=== PATIENT | female | born 1935 | race Caucasian/White ===

== ENCOUNTER → 2016-10-15 | Outpatient (CLI) | payer BC ==
[~2016-10-15] MED LIST: AMLO-110 PO; ASPI81TA21 PO; CALC600T14 PO; CALC667C4 PO; GLC/500 PO; GLC500 PO; LISI-461 PO; MULT-506 PO
[2016-10-15 11:30] LABS: BLOOD UREA NITROGEN 15 mg/dl (7-18); CALCIUM 9.4 mg/dl (8.5-10.1); CARBON DIOXIDE 27 mmol/L (21-32); CHLORIDE 100 mmol/L (98-107); CREATININE 0.91 mg/dl (0.60-1.20); GLUCOSE 111 mg/dl (70-99); POTASSIUM 3.6 mmol/L (3.5-5.1); SODIUM 138 mmol/L (136-145)
== END | disposition home or self-care (01) ==
LOC: C.LAB1850 09:48
PROVIDERS: ATTEND Family Medicine
DX: I10 Essential (primary) hypertension (principal)

== ENCOUNTER → 2016-12-11 | Outpatient (CLI) | payer BC ==
[2016-12-11 09:51] LABS: HEMATOCRIT 37.6 % (37-47); MEAN CELL VOLUME 87.9 fL (80-100); MEAN CORPUSCULAR HEMOGLOBIN 29.9 pg (25-34); MEAN PLATELET VOLUME 9.1 fL (7.4-10.4); PLATELET COUNT 364 K/uL (130-400); RED BLOOD COUNT 4.28 M/uL (4.2-5.4); WHITE BLOOD COUNT 8.56 K/uL (4.8-10.8)
[2016-12-11 09:57] LABS: ALT/SGPT 20 U/L (12-78); BLOOD UREA NITROGEN 16 mg/dl (7-18); BUN/CREATININE RATIO 17.3 (10-20); CALCIUM 9.2 mg/dl (8.5-10.1); CARBON DIOXIDE 28 mmol/L (21-32); CHLORIDE 101 mmol/L (98-107); CHOLESTEROL 174 mg/dl (0-200); CREATININE 0.92 mg/dl (0.60-1.20); GLUCOSE 123 mg/dl (70-99); POTASSIUM 4.1 mmol/L (3.5-5.1); SODIUM 136 mmol/L (136-145); TRIGLYCERIDES 101 mg/dl (0-150); VERY LOW DENSITY LIPOPROT CALC 20 mg/dl
[2016-12-11 10:07] LABS: ALB/GLOB RATIO 1.2 (0.9-2); ALKALINE PHOSPHATASE 53 U/L (45-117); AST/SGOT 14 U/L (15-37); CHOLESTEROL/HDL RATIO 2.5; HDL CHOLESTEROL 70 mg/dl; LDL CHOLESTEROL CALCULATED 84 mg/dl
[2016-12-11 10:27] LABS: RATIO 78.5 mcg/mg (0-30.0)
[2016-12-11 10:29] LABS: ESTIMATED AVERAGE GLUCOSE 131 mg/dl; HA1C FLAG Normal (Normal)
== END | disposition home or self-care (01) ==
LOC: C.LAB1850 07:20
PROVIDERS: ATTEND Family Medicine
DX: I10 Essential (primary) hypertension (principal); E11.9 Type 2 diabetes mellitus without complications

== ENCOUNTER 2017-01-05 12:35 | Emergency (ER) | payer BC ==
[~2017-01-05] VITALS: Ht 162.6 cm; Wt 63.3 kg
[~2017-01-05 12:35] MED LIST changes: -AMLO-110 PO; -CALC667C4 PO; -GLC/500 PO
[2017-01-05 12:50] VITALS: TEMP 36.8; Ht 162.6 cm; Wt 63.3 kg
[2017-01-05] MEDS ORDERED: AMLO-110 PO (13:26)
[2017-01-05] MEDS ORDERED: CALC667C4 PO (13:26)
[2017-01-05] MEDS ORDERED: GLC/500 PO (13:26)
[2017-01-05] MEDS ORDERED: XYLOCAINE 1%/SOD BICARB 20 ML VIAL INFIL ONE (13:45)
--- NOTE | 2017-01-05 14:37 | DIAGNOSTIC IMAGING REPORT ---
CT HEAD WITHOUT CONTRAST (CT) CLINICAL HISTORY: Head pain. Closed head injury. COMPARISON STUDY: No previous studies for comparison. TECHNIQUE: Axial CT of the brain is performed from the vertex to the skull base. IV contrast was not administered for this examination. CT DOSE: 638.56 mGycm FINDINGS: No intra or extra-axial mass lesions are visualized. There is no CT evidence of acute cortical infarction. There is no evidence of midline shift. There is no acute hemorrhage. No calvarial fractures are visualized. There are patchy white matter hypodensities likely on a small vessel basis. There is scattered lacunar infarcts within the basal ganglia and left lateral thalamus. There is no evidence of pathologic ventricular dilatation. There is no evidence of acute sinusitis. There is a right periorbital laceration with soft tissue edema. There is a basilar artery calcification. IMPRESSION: 1. Right inferior frontal scalp laceration with associated edema. 2. No acute intracranial findings Electronically signed by: Bernabe Castellanos M.D. 01/05/2017 2:34 PM Dictated Date/Time: 01/05/2017 2:33 PM
--- NOTE | 2017-01-05 14:42 | DIAGNOSTIC IMAGING REPORT ---
MAXILLOFACIAL CT CT DOSE: 533.14 mGycm HISTORY: Right facial laceration. Fall. TECHNIQUE: Multiaxial CT images of the maxillofacial region were performed and reformatted in the coronal plane without the use of contrast. COMPARISON: None. FINDINGS: Right periorbital soft tissue swelling and a laceration. The globes and retrobulbar fat are intact. The mandible, pterygoid plates, zygomatic arches, skull base, visualized cervical spine, orbital floors, lamina papyracea are intact. Suspect old nasal bone fractures. No acute fractures identified. No fluid levels within the paranasal sinuses. The mastoid air cells are clear. Mild anterior subluxation of the left mandibular condyle in comparison to the right. IMPRESSION: No fractures within the maxillofacial region. Right periorbital soft tissue laceration. Mild anterior subluxation of the left mandibular condyle compared to the right. This could be positional. Clinical correlation recommended to assess for traumatic left mandibular condyle subluxation. Electronically signed by: Deacon Hdz M.D. 01/05/2017 2:40 PM Dictated Date/Time: 01/05/2017 2:33 PM
[2017-01-05 15:15] VITALS: BP 196/145; PULSE 90; O2SAT 97
--- NOTE | 2017-01-05 15:24 | EMERGENCY ROOM VISIT NOTE ---
ED Visit Note First contact with patient: 13:25 81-year-old female fell resulting in a laceration above her right eye. The patient was fully evaluated and repaired by Tony Nance PA-C. Please see his note. I also independently evaluated the patient.
--- NOTE | 2017-01-05 16:13 | EMERGENCY ROOM VISIT NOTE ---
History First contact with patient: 13:25 Chief Complaint: LACERATION/CUT (SUT/DERMABOND) Stated Complaint: FELL CUT OVER R EYE Nursing Triage Summary: Patient states she missed a step and fell striking her head. Patient has laceration and bruising above the right eye. Denies LOC states she takes a baby aspirin daily History of Present Illness The patient is a 81 year old female who presents to the Emergency Room with complaints of injuries after she fell down a step at her home today. The patient reports that she was attempting to step down onto her patio when she lost her footing and fell, landing on her face. She denies any loss of consciousness, but does report a mild headache rated a 2 out of 10. She denies neck pain or back pain. She does report a laceration to her right facial region. She denies any jaw pain. Tetanus immunization is up-to-date. Review of Systems 10 system review was performed and was negative except for pertinent positives and negatives as indicated in history of present illness Past Medical/Surgical History Medical Problems: (1) Cataract Nos (2) Diab Liliana Wo Compl, Type Ii Or Unspec Type, Not Uncntrld (3) Diverticulosis Colon (W/O Ment Of Hemorrhage) (4) Hypertension Nos (5) Iron Defic Anemia Nos (6) Malignant Neoplasm Cecum Surgical Problems: (1) History of colectomy Family History Unremarkable Social History Smoking Status: Never Smoker Alcohol Use: occasionally Marital Status: Occupation Status: retired Current/Historical Medications Scheduled Amlodipine (Norvasc), 5 MG PO DAILY Aspirin Enteric Coated (Ecotrin Or Generic), 81 MG PO DAILY Calcium Acetate (Phoslo 667 Mg), 2 CAP PO TID Lisinopril (Zestril), 10 MG PO DAILY Metformin Hcl (Glucophage), 500 MG PO BID Multivitamin (Multivitamin), 1 TABLET PO DAILY Allergies Coded Allergies: No Known Allergies (Verified , 01/05/17) Physical Exam Vital Signs Date Time Temp Pulse Resp B/P Pulse Ox O2 Delivery O2 Flow Rate FiO2 01/05/17 15:15 90 18 196/145 97 Room Air 01/05/17 12:50 36.8 91 20 205/97 98 Room Air Pain Rating (0-10): 0 Physical Exam CONSTITUTIONAL: Healthy and well nourished. Alert and oriented X 3 with positive affect. GCS 15. HEENT: Examination shows a large stellate 5 cm laceration of the right lateral forehead/eyebrow region. No active bleeding. The patient does have a hematoma formation with periorbital edema. No focal tenderness through the nose or other facial bones. Pupils equal, round and reactive. EOMs intact without evidence for entrapment. No epistaxis or hemotympanum. NECK: Full active range of motion without discomfort. RESPIRATORY: Clear to auscultation bilaterally with no wheezing, crackles, rhonchi or stridor. CARDIOVASCULAR: Regular rate and rhythm with no murmurs, rubs or gallops. GASTROINTESTINAL: Bowel sounds present in all quadrants. MUSCULOSKELETAL: Vision has mild tenderness to palpation to the left anterior knee, otherwise the patient has no antalgic gait. She exhibits full active flexion and extension without obvious discomfort. Distal pulses are intact. INTEGUMENTARY: No rash or other significant dermatologic conditions noted. NEUROLOGIC: No focal neurologic deficits noted. Normal finger to nose test. Negative pronator drift. No ataxia with ambulation. Medical Decision & Procedures ER Provider Diagnostic Interpretation: Noncontrast CT of the head and facial bones does not show any intracranial bleed , mass effect or fractures. The radiologist does question the possibility of a left mandibular joint dislocation. The patient is able to open and close the mouth without discomfort. Radiologist reports were also reviewed. Procedure Laceration repair was performed under local anesthesia after receiving verbal consent from the patient. Using buffered 1% lidocaine without epinephrine, good local anesthesia was administered. The peripheral tissue was inclined with iodine, then the wound was irrigated with approximately 250 mL of normal saline. The wound was then meticulously approximated using 6-0 nylon simple interrupted sutures. I was unable to get an adequate final suture count because of the nature of closure. Bacitracin dressing was applied. ED Course Patient history and physical exam were performed. Nurse's notes were reviewed. The patient refused any analgesics. Noncontrast CT of the head and facial bones were normal. Radiologist did question the possibility of a left TMJ dislocation, however the patient's clinical exam is normal. Laceration repair was performed under local anesthesia. The patient was encouraged to intermittently apply ice to areas of discomfort. Tylenol as needed for pain. Suture removal in 5-7 days, or seek reevaluation sooner for any signs of wound infection. The patient was happy with plan of care, voiced understanding of all discharge instructions, and denied any significant pain at the time of discharge. The patient was also seen and evaluated by Dr. Penn, ED attending physician, who agrees with workup and plan of care. Medical Decision Impression Primary Impression: Facial laceration Additional Impression: Fall down steps Departure Information Dispostion Home / Self-Care Condition GOOD Forms HOME CARE DOCUMENTATION FORM, IMPORTANT VISIT INFORMATION Patient Instructions [facility] Additional Instructions Keep wound clean and dry. Do not allow any crusting or dried blood to accumulate on sutures. If this occurs, use a 1:1 solution of hydrogen peroxide/ water on a Q-tip to clean the wound. Use an antibiotic ointment for 3 days, then let wound dry. Suture removal in 5-7 days. Return sooner for any signs of infection (increasing redness, swelling, drainage). Ice for swelling. Tylenol 1000 mg every 6 hrs as needed for pain. Problem Qualifiers Primary Impression: Facial laceration Encounter type: initial encounter Qualified Codes: S01.81XA - Laceration without foreign body of other part of head, initial encounter Additional Impression: Fall down steps Encounter type: initial encounter Qualified Codes: W10.8XXA - Fall (on) ( from) other stairs and steps, initial encounter
== END 2017-01-05 15:44 | disposition home or self-care (01) ==
LOC: C.EDB 12:37 → C.EDD 15:44
DX: S01.81XA Laceration without foreign body of other part of head, initial encounter (principal); W10.8XXA Fall (on) (from) other stairs and steps, initial encounter; Y92.009 Unspecified place in unspecified non-institutional (private) residence as the place of occurrence of the external cause; E11.9 Type 2 diabetes mellitus without complications; I10 Essential (primary) hypertension; Z85.038 Personal history of other malignant neoplasm of large intestine; Z90.49 Acquired absence of other specified parts of digestive tract; Z79.899 Other long term (current) drug therapy

== ENCOUNTER → 2017-06-16 | Outpatient (CLI) | payer BC ==
[~2017-06-16] MED LIST changes: +AMLO-110 PO; -CALC600T14 PO; +CALC667C4 PO; +GLC/500 PO; -GLC500 PO
[2017-06-16 09:35] LABS: BASO % 1.2 %; BASO ABS # 0.07 K/uL (0-0.2); COMPLETE YES; HEMATOCRIT 39.3 % (37-47); IG% 0.3 %; LYMPH % 19.3 %; LYMPH ABS # 1.17 K/uL (1.2-3.4); MEAN CELL VOLUME 88.5 fL (80-100); MEAN CORPUSCULAR HEMOGLOBIN 28.6 pg (25-34); MEAN CORPUSCULAR HGB CONC 32.3 g/dl (32-36); MEAN PLATELET VOLUME 9.3 fL (7.4-10.4); MONO % 12.7 %; NEUT % 63.5 %; PLATELET COUNT 403 K/uL (130-400); RED BLOOD COUNT 4.44 M/uL (4.2-5.4); WHITE BLOOD COUNT 6.07 K/uL (4.8-10.8)
[2017-06-16 09:54] LABS: AST/SGOT 11 U/L (15-37); BLOOD UREA NITROGEN 18 mg/dl (7-18); BUN/CREATININE RATIO 20.6 (10-20); CALCIUM 9.1 mg/dl (8.5-10.1); CARBON DIOXIDE 28 mmol/L (21-32); CHLORIDE 100 mmol/L (98-107); CREATININE 0.88 mg/dl (0.60-1.20); GLUCOSE 129 mg/dl (70-99); SODIUM 135 mmol/L (136-145)
[2017-06-16 09:55] LABS: ALT/SGPT 17 U/L (12-78)
[2017-06-16 09:57] LABS: ALB/GLOB RATIO 1.2 (0.9-2); ALKALINE PHOSPHATASE 55 U/L (45-117); CHOLESTEROL 168 mg/dl (0-200); CHOLESTEROL/HDL RATIO 2.3; HDL CHOLESTEROL 72 mg/dl; LDL CHOLESTEROL CALCULATED 78 mg/dl; TRIGLYCERIDES 91 mg/dl (0-150); VERY LOW DENSITY LIPOPROT CALC 18 mg/dl
[2017-06-16 10:09] LABS: RATIO 36.4 mcg/mg (0-30.0)
== END | disposition home or self-care (01) ==
LOC: C.LAB1850 08:01
PROVIDERS: ATTEND Nurse Practitioner Adult Health
DX: E11.9 Type 2 diabetes mellitus without complications (principal)

== ENCOUNTER → 2017-12-17 | Outpatient (CLI) | payer BC ==
[2017-12-17 10:01] LABS: ALBUMIN 3.8 gm/dl (3.4-5.0); ALT/SGPT 18 U/L (12-78); BLOOD UREA NITROGEN 16 mg/dl (7-18); CALCIUM 8.9 mg/dl (8.5-10.1); CARBON DIOXIDE 27 mmol/L (21-32); CREATININE 0.92 mg/dl (0.60-1.20); GLUCOSE 120 mg/dl (70-99); POTASSIUM 3.9 mmol/L (3.5-5.1); SODIUM 134 mmol/L (136-145)
[2017-12-17 10:09] LABS: HEMOGLOBIN A1C 6.4 % (4.5-5.6)
[2017-12-17 10:11] LABS: ALKALINE PHOSPHATASE 56 U/L (45-117); AST/SGOT 12 U/L (15-37); TOTAL PROTEIN 7.3 gm/dl (6.4-8.2)
== END | disposition home or self-care (01) ==
LOC: C.LAB1850 07:43
PROVIDERS: ATTEND Nurse Practitioner Family
DX: I10 Essential (primary) hypertension (principal); E11.9 Type 2 diabetes mellitus without complications; M85.80 Other specified disorders of bone density and structure, unspecified site

== ENCOUNTER → 2017-12-23 | Outpatient (CLI) | payer BC ==
[~2017-12-23] MED LIST changes: +ASPI-319 PO; -ASPI81TA21 PO
--- NOTE | 2017-12-24 07:56 | MAMMOGRAPHY REPORT ---
BILATERAL DIGITAL SCREENING MAMMOGRAM TOMOSYNTHESIS WITH CAD: 12/23/2017 CLINICAL HISTORY: Routine screening. Patient has no complaints. TECHNIQUE: Breast tomosynthesis in addition to standard 2D mammography was performed. Current study was also evaluated with a Computer Aided Detection (CAD) system. COMPARISON: Comparison is made to exams dated: 03/07/2016 mammogram, 03/06/2015 mammogram, 12/27/2012 m ammogram, 12/29/2013 mammogram, 07/01/2012 mammogram, and 12/30/2011 ultrasound - [facility]. BREAST COMPOSITION: There are scattered areas of fibroglandular density in both breasts. FINDINGS: There are minimal vascular calcifications in the breasts. No suspicious mass, architectura l distortion or cluster of microcalcifications is seen. IMPRESSION: ACR BI-RADS CATEGORY 1: NEGATIVE There is no mammographic evidence of malignancy. A 1 year screening mammogram is recommended. The pa tient will receive written notification of the results. Approximately 10% of breast cancers are not detected with mammography. A negative mammographic report should not delay biopsy if a clinically suggestive mass is present. Sweta Villalobos M.D. ay/:12/23/2017 11:53:24 Senior Engineering Team Leader: Esthela CORDON(Amarilis)(M), [facility] letter sent: Normal 1/2 BI-RADS Code: ACR BI-RADS Category 1: Negative
== END | disposition home or self-care (01) ==
LOC: C.MAMM 10:29
PROVIDERS: ATTEND Nurse Practitioner Family
DX: Z12.31 Encounter for screening mammogram for malignant neoplasm of breast (principal)

== ENCOUNTER 2022-09-30 14:10 | Inpatient (IN) ==
--- NOTE | 2022-09-30 15:36 | Emergency Department Note ---
Impression & Plan AMS (altered mental status), Rib pain on left side, Pneumonia ED Provider Note ED Provider Note NAME: SHADE MARTÍNEZ AGE:86 SEX: Female : 1935 ARRIVES VIA: private vehicle INFORMANT: Patient and family at bedside ED PROVIDER(s): Marcie Hoff DO CHIEF COMPLAINT: Altered mental status, recent fall HPI: This is an 86-year-old female who presents emergency department due to family's concern for altered mental status. Patient lives by herself, family states patient is typically oriented and very sharp given her age. They state today she was repetitive, forgetful, amnestic to recent events, was calling [employer] multiple times not remembering that she had previously contacted them or had a conversation with them. Family concerned as patient fell last . Patient states she tripped over some items on the floor. She denies head injury or LOC. States she landed on her side but was able to get up under her own power. Family at bedside states they do talk to her frequently as do other family members and no one noticed any changes in her mentation until today. Patient denies any neck or back pain. She denies any headaches, dizziness, vision changes, nausea or vomiting, trouble breathing, chest pain, hip or lower extremity pain, shoulder or upper extremity pain. Patient states she does have bruising along her left side and left ribs. She states that is tender with palpation. Patient takes low-dose aspirin daily, no other anticoagulation. PAST MEDICAL HISTORY:See Below PAST SURGICAL HISTORY:See Below FAMILY HISTORY:See Below SOCIAL HISTORY:See Below HOME MEDICATIONS:See Below ALLERGIES:See Below VITALS:See Below PHYSICAL EXAMINATION: GENERAL: alert, well appearing, well nourished, no distress, non-toxic HEAD: nc/at, no evidence of facial trauma, no varma signs, no raccoon eyes EYE EXAM: normal conjunctiva, PERRL and EOM's grossly intact OROPHARYNX: no exudate, no erythema, lips, buccal mucosa, and tongue normal and mucous membranes are moist NECK: supple, no nuchal rigidity, no adenopathy, non-tender, FROM LUNGS: Clear to auscultation. Normal chest wall mechanics, no w/r/r CHEST WALL: Evidence of ecchymosis noted along left flank and left inferior ribs laterally, no crepitus, area is tender with palpation HEART: no murmurs, S1 normal and S2 normal ABDOMEN: abdomen soft, non-tender, normo-active bowel sounds, no masses, no rebound or guarding. BACK: Back is symmetrical on inspection and there is no deformity, no midline tenderness, no CVA tenderness. SKIN: no rashes, petechiae, orbruising UPPER EXTREMITIES: upper extremities are grossly normal. FROM, nml pulses b/l. No evidence of trauma or deformity. LOWER EXTREMITIES: No pitting edema. FROM, nml pulses b/l. No evidence of trauma or deformity. NEURO EXAM: Normal sensorium, cranial nerves II-XII grossly intact, normal speech, no facial droop,nogross weakness of arms, no gross weakness of legs. Gross sensation intact. No ataxia. Vital Signs: reviewed and remarkable Differential Diagnosis: Differential diagnoses include major intracranial, cervical, spinal, thoracic, abdominal, pelvic and neurologic injury. Fracture, contusion, sprain, strain, laceration, abrasions included as well. MEDICAL DECISION MAKING: CURB 65 moderate risk This is an 86 yo female brought in by family due to concern for AMS and recent fall. Patient with evidence of chest wall injury on exam but denied CP or SOB. She admits to mild cough but states this had started even prior to injury. Patient not anticoagulated and she denied other focal symptoms since her fall. Labs drawn and sent, IV established, IVF started and patient eventually sent for CT imaging. CT's reassuring and did not reveal acute concerning traumatic injury, however, there was evidence of PNA and possible mass suggestive of possible malignancy. Patient and family updated on results and plan and were in agreement. IV and oral antibiotics ordered. Family states pt cognition was slightly improved while here, possibly from rehydration with IVF. VS stable throughout. Tachycardia improved - likely due to anxiety, dehydration, and infection. Patient noted to have leukocytosis, likely from infection. At this time I do not suspect other occult traumatic injury or sepsis. Consultation(s): 1834: Discussed with Dr. Arenas. ER Treatment Provided: See below Diagnostics Interpreted By Me: -ECG: Sinus tachycardia at 133, nml QRS and QTc, left axis, nonspecific ST/T changes -Cardiac Monitoring: An order was placed for continuous cardiac monitoring. The monitor shows a rate of 111 with sinus tachycardia rhythm. -Laboratory studies: As stated above and show below. -Imaging studies: CT head, C-spine, chest, abdomen/pelvis as below Triage Nursing Note Reviewed Prior/Outside Records Reviewed Past Med/Surg History Medical History (Updated 09/30/22 @ 18:14 by Marcie Hoff DO) POLST (Physician Orders for Life-Sustaining Treatment) Surgical History History of colectomy S/P colon resection Family History Sister Breast cancer Denies family history of Ovarian cancer Prostate cancer Myocardial infarction Colorectal cancer Social History Smoking Status: Never smoker Second Hand Exposure: No; Hx Alcohol Use: No Hx Substance Use: No Preferred Language: Citizen Of [place] Communication Ability: Effective Visual Impairment: No Limitations Hearing Ability: Normal Raw Silk Grader Required: No Beliefs That Will Affect Care: None marital status: / Current Living Situation: Alone current occupational status: 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 How many Children do You have: 2 Feels Safe at Home: Yes Childhood Exposure to Second-Hand Smoke: Yes caffeine: No during the past year weight has: remained stable Dental Care, Regularly: No Physical Activity Frequency: Does not Exercise Seatbelt Use: always Sunscreen Use: Yes Assistive Devices: Cane Allergies Allergies Allergy/AdvReac Type Severity Reaction Status Date / Time No Known Allergies Allergy Unknown Verified 09/30/22 18:25 Home Meds Home Medications Medication Instructions Recorded Confirmed multivitamin 1 tab PO QPM 06/23/19 09/30/22 aspirin 81 mg tablet,delayed 81 mg PO QAM 09/30/22 09/30/22 release vit C 250 mg-vit E 90 mg-zinc 40 1 tab PO BID 09/30/22 09/30/22 mg-copper 1 [id number] capsule (PreserVision AREDS-2) Previous Rx's Medication Instructions Recorded blood-glucose meter (KiggitTouch #1 ea 06/25/20 Ultra2 Meter) amlodipine 5 mg tablet 5 mg PO DAILY #90 tabs 07/07/22 lancets 30 gauge (OneTouch Delica #100 ea 07/07/22 Lancets) lisinopril 40 mg tablet 40 mg PO DAILY #90 tabs 07/07/22 metformin 500 mg tablet 500 mg PO BID #180 tabs 07/07/22 blood sugar diagnostic #200 ea 09/23/22 azithromycin 500 mg tablet 500 mg PO PM #3 tabs 10/01/22 cefuroxime axetil 500 mg tablet 500 mg PO BID #10 tabs 10/01/22 Results & Data (ED) Vital Signs Vital Signs - 24 hr 09/30/22 14:34 09/30/22 15:29 09/30/22 17:00 Temperature 36.6 C Temperature Source Temporal Artery Scan Pulse Rate 142 H Pulse Rate [Apical] 111 H 110 H Pulse Rhythm [Apical] Regular Regular Pulse Strength [Apical] Normal Normal Respiratory Rate 20 18 18 Respiratory Effort / Characteristics Non-Labored Non-Labored Non-Labored Respiratory Depth Normal Normal Normal Respiratory Pattern Regular Regular Blood Pressure 138/68 Blood Pressure [Right Arm] 195/128 H 146/97 H Blood Pressure Mean 91 Blood Pressure Mean [Right Arm] 150 113 Pulse Oximetry 96 96 95 Oxygen Delivery Method Room Air Room Air Room Air Sepsis Recent Fever Within 48 Hours No Sepsis New/Unexplained Change in Mental Status N/A Sepsis Action Taken by Nursing No Action Required Laboratory Data 09/30/22 15:05 09/30/22 15:05 Lab Results 09/30/22 09/30/22 09/30/22 Range/Units 15:05 15:05 15:05 WBC 20.02 H (4.8-10.8) K/ul RBC 3.99 (3.93-5.22) M/uL Hgb 11.7 L (12.0-16.0) g/dl Hct 34.1 (34.1-44.9) % MCV 85.5 (80.0-100.0) fL MCH 29.3 (25.0-34.0) pg MCHC 34.3 (32.0-36.0) g/dL RDW Std Deviation 48.4 H (36.4-46.3) fL RDW Coeff of Jaime 15.5 H (11.5-14.5) % Plt Count 390 (130-400) K/uL MPV 9.8 (9.4-12.3) fL Immature Gran % (Auto) 0.6 % Neut % (Auto) 90.1 % Lymph % (Auto) 3.5 % Citrus % (Auto) 5.6 % Eos % (Auto) 0.0 % Baso % (Auto) 0.2 % Neut # (Auto) 18.02 H (1.4-6.5) K/uL Lymph # (Auto) 0.70 L (1.2-3.4) K/uL Citrus # (Auto) 1.12 H (0.24-0.82) K/uL Eos # (Auto) 0.00 (0-0.50) K/uL Baso # (Auto) 0.05 (0-0.2) K/uL Immature Gran # (Auto) 0.13 H (0.00-0.02) K/uL PT 11.2 (9.0-12.0) Seconds INR 1.1 (0.9-1.1) Sodium 134 L (136-145) mmol/L Potassium 3.9 (3.5-5.1) mmol/L Chloride 99 (98-107) mmol/L Carbon Dioxide 25 (21-32) mmol/L Anion Gap 10 (3-11) BUN 19 (6-23) mg/dl Creatinine 1.10 (0.6-1.2) mg/dl Est Cr Clr Drug Dosing Not Reportable Est GFR ( Amer) 53.0 ml/min Est GFR (Non-Af Amer) 45.7 ml/min BUN/Creatinine Ratio 17.3 (10-20) Glucose 241 H (70-99(Fasting)) mg/dl Calcium 10.0 (8.5-10.1) mg/dl Magnesium 1.4 L (1.7-2.4) mg/dl Total Bilirubin 0.7 (0.2-1.0) mg/dl AST 10 L (13-39) U/L ALT 8 (7-52) U/L Alkaline Phosphatase 53 (34-104) U/L Troponin I High Sens 22.8 H (0-14) pg/ml Total Protein 7.8 (6.0-8.3) gm/dl Albumin 3.9 (3.4-5.0) gm/dl Globulin 3.9 (2.5-4.0) gm/dl Albumin/Globulin Ratio 1.0 (0.9-2) Lipase 15 (11-82) U/L Procalcitonin (0-0.5) ng/ml TSH (0.300-4.500) uIu/ml Urine Color Urine Appearance (Clear) Urine pH (4.5-7.5) Ur Specific [place] (1.000-1.030) Urine Protein (Negative) Urine Glucose (UA) (Negative) Urine Ketones (Negative) Urine Blood (Negative) Urine Nitrite (Negative) Urine Bilirubin (Negative) Urine Urobilinogen (Negative) Ur Leukocyte Esterase (Negative) SARS-CoV-2 (PCR) (Negative) Influenza Type A (PCR) (Neg) Influenza Type B (PCR) (Neg) RSV (RT-PCR) (Neg) 09/30/22 09/30/22 09/30/22 Range/Units 15:05 15:05 18:35 WBC (4.8-10.8) K/ul RBC (3.93-5.22) M/uL Hgb (12.0-16.0) g/dl Hct (34.1-44.9) % MCV (80.0-100.0) fL MCH (25.0-34.0) pg MCHC (32.0-36.0) g/dL RDW Std Deviation (36.4-46.3) fL RDW Coeff of Jaime (11.5-14.5) % Plt Count (130-400) K/uL MPV (9.4-12.3) fL Immature Gran % (Auto) % Neut % (Auto) % Lymph % (Auto) % Citrus % (Auto) % Eos % (Auto) % Baso % (Auto) % Neut # (Auto) (1.4-6.5) K/uL Lymph # (Auto) (1.2-3.4) K/uL Citrus # (Auto) (0.24-0.82) K/uL Eos # (Auto) (0-0.50) K/uL Baso # (Auto) (0-0.2) K/uL Immature Gran # (Auto) (0.00-0.02) K/uL PT (9.0-12.0) Seconds INR (0.9-1.1) Sodium (136-145) mmol/L Potassium (3.5-5.1) mmol/L Chloride (98-107) mmol/L Carbon Dioxide (21-32) mmol/L Anion Gap (3-11) BUN (6-23) mg/dl Creatinine (0.6-1.2) mg/dl Est Cr Clr Drug Dosing Est GFR ( Amer) ml/min Est GFR (Non-Af Amer) ml/min BUN/Creatinine Ratio (10-20) Glucose (70-99(Fasting)) mg/dl Calcium (8.5-10.1) mg/dl Magnesium (1.7-2.4) mg/dl Total Bilirubin (0.2-1.0) mg/dl AST (13-39) U/L ALT (7-52) U/L Alkaline Phosphatase (34-104) U/L Troponin I High Sens (0-14) pg/ml Total Protein (6.0-8.3) gm/dl Albumin (3.4-5.0) gm/dl Globulin (2.5-4.0) gm/dl Albumin/Globulin Ratio (0.9-2) Lipase (11-82) U/L Procalcitonin 0.14 (0-0.5) ng/ml TSH 1.550 (0.300-4.500) uIu/ml Urine Color Urine Appearance (Clear) Urine pH (4.5-7.5) Ur Specific [place] (1.000-1.030) Urine Protein (Negative) Urine Glucose (UA) (Negative) Urine Ketones (Negative) Urine Blood (Negative) Urine Nitrite (Negative) Urine Bilirubin (Negative) Urine Urobilinogen (Negative) Ur Leukocyte Esterase (Negative) SARS-CoV-2 (PCR) NEGATIVE (Negative) Influenza Type A (PCR) Negative (Neg) Influenza Type B (PCR) Negative (Neg) RSV (RT-PCR) Negative (Neg) 09/30/22 09/30/22 Range/Units 18:35 19:26 WBC (4.8-10.8) K/ul RBC (3.93-5.22) M/uL Hgb (12.0-16.0) g/dl Hct (34.1-44.9) % MCV (80.0-100.0) fL MCH (25.0-34.0) pg MCHC (32.0-36.0) g/dL RDW Std Deviation (36.4-46.3) fL RDW Coeff of Jaime (11.5-14.5) % Plt Count (130-400) K/uL MPV (9.4-12.3) fL Immature Gran % (Auto) % Neut % (Auto) % Lymph % (Auto) % Citrus % (Auto) % Eos % (Auto) % Baso % (Auto) % Neut # (Auto) (1.4-6.5) K/uL Lymph # (Auto) (1.2-3.4) K/uL Citrus # (Auto) (0.24-0.82) K/uL Eos # (Auto) (0-0.50) K/uL Baso # (Auto) (0-0.2) K/uL Immature Gran # (Auto) (0.00-0.02) K/uL PT (9.0-12.0) Seconds INR (0.9-1.1) Sodium (136-145) mmol/L Potassium (3.5-5.1) mmol/L Chloride (98-107) mmol/L Carbon Dioxide (21-32) mmol/L Anion Gap (3-11) BUN (6-23) mg/dl Creatinine (0.6-1.2) mg/dl Est Cr Clr Drug Dosing Est GFR ( Amer) ml/min Est GFR (Non-Af Amer) ml/min BUN/Creatinine Ratio (10-20) Glucose (70-99(Fasting)) mg/dl Calcium (8.5-10.1) mg/dl Magnesium (1.7-2.4) mg/dl Total Bilirubin (0.2-1.0) mg/dl AST (13-39) U/L ALT (7-52) U/L Alkaline Phosphatase (34-104) U/L Troponin I High Sens 32.9 H D (0-14) pg/ml Total Protein (6.0-8.3) gm/dl Albumin (3.4-5.0) gm/dl Globulin (2.5-4.0) gm/dl Albumin/Globulin Ratio (0.9-2) Lipase (11-82) U/L Procalcitonin (0-0.5) ng/ml TSH (0.300-4.500) uIu/ml Urine Color Yellow Urine Appearance Clear (Clear) Urine pH 7.0 (4.5-7.5) Ur Specific [place] > 1.045 H (1.000-1.030) Urine Protein Negative (Negative) Urine Glucose (UA) Negative (Negative) Urine Ketones Negative (Negative) Urine Blood Negative (Negative) Urine Nitrite Negative (Negative) Urine Bilirubin Negative (Negative) Urine Urobilinogen Negative (Negative) Ur Leukocyte Esterase Negative (Negative) SARS-CoV-2 (PCR) (Negative) Influenza Type A (PCR) (Neg) Influenza Type B (PCR) (Neg) RSV (RT-PCR) (Neg) Administered Medications Discontinued Medications Acetaminophen (Acetaminophen 500 Mg Tab) 1,000 mg PO Q8 WILFRID Stop: 10/30/22 22:59 Last Admin: 10/01/22 15:36 Dose: 1,000 mg Documented By: Admin: 10/01/22 05:16 Dose: Not Given Documented By: Admin: 09/30/22 22:45 Dose: 1,000 mg Documented By: JOEY Amlodipine Besylate (Amlodipine Besylate 5 Mg Tab) 5 mg PO DAILY WILFRID Stop: 10/31/22 08:59 Last Admin: 10/01/22 08:20 Dose: 5 mg Documented By: MEJIA Aspirin (Aspirin 81 Mg Ectab) 81 mg PO QAM WILFRID Stop: 10/31/22 08:59 Last Admin: 10/01/22 08:20 Dose: 81 mg Documented By: MEJIA Azithromycin (Azithromycin 250 Mg Tab) 500 mg PO NOW ONE Stop: 09/30/22 18:13 Last Admin: 09/30/22 19:52 Dose: 500 mg Documented By: PIYUSH Enoxaparin Sodium (Enoxaparin Inj 30 Mg/0.3 Ml Syr) 30 mg SQ QPM WILFRID Stop: 10/30/22 20:59 Last Admin: 10/01/22 02:14 Dose: 30 mg Documented By: JOEY Sodium Chloride (Nss 1000ml) 1,000 mls @ 125 mls/hr IV .Q8H WILFRID Stop: 10/01/22 02:51 Last Infusion: 10/01/22 02:16 Dose: 0 mls/hr Documented By: Admin: 09/30/22 19:57 Dose: 250 mls/hr Documented By: Infusion: 09/30/22 19:46 Dose: 250 mls/hr Documented By: Admin: 09/30/22 15:46 Dose: 250 mls/hr Documented By: KAVON Magnesium Sulfate/Dextrose (Magnesium Sulfate / D5w) 1 gm in 100 mls @ 100 mls/hr IV Q1H WILFRID Stop: 09/30/22 18:25 Last Infusion: 09/30/22 22:14 Dose: 0 mls/hr Documented By: Admin: 09/30/22 18:37 Dose: 100 mls/hr Documented By: Infusion: 09/30/22 18:36 Dose: 100 mls/hr Documented By: Admin: 09/30/22 17:36 Dose: 100 mls/hr Documented By: KAVON Ceftriaxone Sodium 1,000 mg/ (Dextrose) 50 mls @ 100 mls/hr IV NOW STA Stop: 09/30/22 18:41 Last Admin: 09/30/22 18:38 Dose: Not Given Documented By: KAVON Ampicillin Sodium/Sulbactam Sodium 3,000 mg/ Sodium Chloride 108 mls @ 200 mls/hr IV NOW STA; Protocol Stop: 09/30/22 19:05 Last Infusion: 09/30/22 22:14 Dose: 0 mls/hr Documented By: Admin: 09/30/22 19:52 Dose: 200 mls/hr Documented By: PIYUSH Magnesium Sulfate/Dextrose (Magnesium Sulfate / D5w) 1 gm in 100 mls @ 50 mls/hr IV Q2H WILFRID Stop: 10/01/22 00:14 Last Infusion: 10/01/22 02:16 Dose: 0 mls/hr Documented By: Admin: 10/01/22 00:05 Dose: 50 mls/hr Documented By: Infusion: 10/01/22 00:05 Dose: 50 mls/hr Documented By: Admin: 09/30/22 22:45 Dose: 50 mls/hr Documented By: JOEY Ampicillin Sodium/Sulbactam Sodium 3,000 mg/ Sodium Chloride 108 mls @ 200 mls/hr IV Q6H WILFRID; Protocol Stop: 10/08/22 01:59 Last Infusion: 10/01/22 16:42 Dose: 0 mls/hr Documented By: Admin: 10/01/22 15:36 Dose: 200 mls/hr Documented By: Infusion: 10/01/22 09:07 Dose: 0 mls/hr Documented By: Admin: 10/01/22 08:20 Dose: 200 mls/hr Documented By: Infusion: 10/01/22 03:07 Dose: 0 mls/hr Documented By: Admin: 10/01/22 02:11 Dose: 200 mls/hr Documented By: JOEY Insulin Aspart (Insulin Aspart Per Unit) 0 units SC ACHS WILFRID Stop: 10/30/22 20:59 Last Admin: 10/01/22 17:20 Dose: 4 units Documented By: MEJIA Co-signed By: SANTO Admin: 10/01/22 12:09 Dose: Not Given Documented By: Admin: 10/01/22 08:20 Dose: 5 units Documented By: MEJIA Co-signed By: TAMIKO Admin: 09/30/22 22:39 Dose: Not Given Documented By: JOEY Ioversol (Optiray 350 100ml) 86 ml IV ONCE ONE Stop: 09/30/22 17:02 Last Admin: 09/30/22 17:02 Dose: 86 ml Documented By: KALEB Lisinopril (Lisinopril 40 Mg Tab) 40 mg PO DAILY WILFRID Stop: 10/31/22 08:59 Last Admin: 10/01/22 08:20 Dose: 40 mg Documented By: MEJIA Imaging Data Radiologist's Impression: Cervical Spine CT 09/30/22 15:29 CT cervical spine wo con CLINICAL HISTORY: trauma TECHNIQUE: Multidetector row helical CT of the cervical spine was performed without administration of intravenous contrast. Coronal and sagittal reformations were obtained. Automated dose lowering techniques and/or adjustment according to patient size were utilized for this exam. Comparison: None available at the time of this dictation. FINDINGS: No acute fractures or subluxations are identified. Degenerative changes are seen in the visualized spine. The alignment is normal. Subcentimeter thyroid nodules are seen which do not require follow-up by ACR criteria. IMPRESSION: Degenerative changes without evidence of acute bony injury. ACT 112: Negative or not required by law. Electronically signed by: Kit Funes M.D. 09/30/2022 5:[address] 09/30/22 15:29 CT SCAN OF THE BRAIN WITHOUT IV CONTRAST CLINICAL HISTORY: Trauma. Change in mental status. COMPARISON STUDY: CT of the brain dated 01/05/2017. TECHNIQUE: Unenhanced axial CT scan of the brain is performed from the vertex to the skull base. A dose lowering technique was utilized adhering to the principle s of ALARA. FINDINGS: Brain parenchyma: There is age-related involutional change noting moderate to advanced subcortical and periventricular microangiopathic disease. There is no hemorrhage, mass effect, or evidence of acute territorial ischemia by CT criteria. Kennedy-white matter differentiation is preserved. No extra-axial fluid collection is seen. Ventricles, sulci, cisterns: Prominent secondary to involutional change. Intracranial vasculature: There is atherosclerotic calcification of the cavernous carotid and vertebral arteries. Calvarium: The skeletal structures are osteopenic. No depressed calvarial fracture is seen. Sinuses and mastoids: The visualized paranasal sinuses are clear. The mastoid air cells are well pneumatized. Orbits: The bony orbits are grossly intact. There are bilateral ocular lens im plants. IMPRESSION: There is no hemorrhage, mass effect, or evidence of acute territorial ischemia by CT criteria. ACT 112: Negative or not required by law. Electronically signed by: Nathan Siu M.D. 09/30/2022 5:15 PM Abdomen/Pelvis CT 09/30/22 15:30 CT SCAN OF THE CHEST, ABDOMEN, AND PELVIS WITH IV CONTRAST CLINICAL HISTORY: Trauma. Fall. COMPARISON STUDY: No priors. TECHNIQUE: Following the IV administration of 86 of Optiray 350, CT scan of the chest, abdomen, and pelvis was performed from the thoracic inlet to the proximal femora. Images are reviewed in the axial, sagittal, and coronal planes. IV contrast was administered without complication. A dose lowering technique was utilized adhering to the principles of ALARA. CT DOSE: 1487.90 mGy.cm FINDINGS: CHEST: Thyroid: Imaged portions of the thyroid gland are normal in size and attenuation. Thoracic aorta: There is atherosclerotic calcification of the thoracic aorta, which is normal in caliber and demonstrates standard 3-vessel arch anatomy. No dissection is seen. Pulmonary vasculature: The pulmonary trunk is normal in caliber. There are no filling defects identified in the central pulmonary vessels to indicate pulmonary embolus. Note that this examination was not protocoled for evaluation of the pulmonary arteries. Heart: The heart is enlarged and without pericardial effusion. There are scattered coronary artery calcifications. Lungs and pleural spaces: The trachea and central airways are clear. Subpleural airspace consolidation is seen in the lingula. There is a small left pleural effusion. There is an irregular opacity in the left upper lobe seen on image #82. An irregular and more nodular component within this region on image #80 measures 1.9 x 1.8 x 0.9 cm. An additional subsolid lesion in the superior segment of the right lower lobe on image #113 measures 1.8 x 1.8 x 1.1 cm. A subcentimeter groundglass nodule right apex image #49. No pneumothorax is seen. Mediastinum: There is no mediastinal hematoma. There are prominent mediastinal lymph nodes. A prevascular node measures 8 mm in short axis. Cely: Clear. Axillae: There is no axillary lymphadenopathy. Bony thorax: The skeletal structures are osteopenic. The bony thorax appears intact. No lytic or blastic lesions are identified. ABDOMEN AND PELVIS: Liver: The contrast-enhanced liver is normal in size, contour, and attenuation. There is no intrahepatic biliary ductal dilatation. The hepatic veins and portal veins are patent. Gallbladder: Unremarkable. Spleen: Normal in size and attenuation. Pancreas: Unremarkable. Adrenal glands: Unremarkable. Kidneys: The contrast enhanced kidneys demonstrate cortical atrophy and are without hydronephrosis. The kidneys enhance symmetrically. Scattered renal cysts measure up to 12 mm. Additional subcentimeter cortical hypodensities also likely represent cysts but are too small for definitive characterization. A circumaortic left renal vein is incidentally noted. Abdominal vasculature: The abdominal aorta is normal in course and caliber noting advanced atherosclerotic calcification. Stomach and bowel: A small hiatal hernia is noted. There is advanced colonic diverticulosis without CT evidence of acute diverticulitis. No bowel obstruction is seen. Moderate fecal retention is noted throughout the colon. Postsurgical changes noted in the right colon. The appendix is not identified and reported surgically absent. Peritoneum: There is no intraperitoneal free air or abdominal ascites. Lymphadenopathy: None. Pelvic viscera: The bladder, uterus, and adnexa are normal as visualized. Skeletal structures: The skeletal structures are osteopenic. The lumbosacral spine, bony pelvis, and proximal femora appear intact. There is moderate lumbosacral spondylosis. No lytic or blastic lesions are seen. IMPRESSION: 1. There is no acute posttraumatic intrathoracic abnormality. 2. There is no evidence of solid organ injury in the abdomen or pelvis. 3. There is subpleural consolidation in the lingular and a small left pleural effusion. The appearance favors pneumonia/aspiration pneumonitis. Clinical correlation will be required and radiographic follow-up to resolution is recommended. 4. There are 2 highly suspicious pulmonary lesions identified. These are located in the left upper lobe and the right lower lobe as detailed above. Multifocal lung cancer is the diagnosis of exclusion. An inflammatory process is considered much less likely. Follow up with pulmonology is recommended, as is a repeat chest CT in 1 to 2 months time for reassessment. 5. Advanced colonic diverticulosis without CT evidence of acute diverticulitis. 6. Additional findings as above. ACT 112: Positive. There are findings on this exam that require communication between the performing entity and the patient following Patient Test Result Information Act ([place] Act 112) guidelines. Electronically signed by: Nathan Siu M.D. 09/30/2022 5:[address] 09/30/22 15:30 CT SCAN OF THE CHEST, ABDOMEN, AND PELVIS WITH IV CONTRAST CLINICAL HISTORY: Trauma. Fall. COMPARISON STUDY: No priors. TECHNIQUE: Following the IV administration of 86 of Optiray 350, CT scan of the chest, abdomen, and pelvis was performed from the thoracic inlet to the proximal femora. Images are reviewed in the axial, sagittal, and coronal planes. IV contrast was administered without complication. A dose lowering technique was utilized adhering to the principles of ALARA. CT DOSE: 1487.90 mGy.cm FINDINGS: CHEST: Thyroid: Imaged portions of the thyroid gland are normal in size and attenuation. Thoracic aorta: There is atherosclerotic calcification of the thoracic aorta, which is normal in caliber and demonstrates standard 3-vessel arch anatomy. No dissection is seen. Pulmonary vasculature: The pulmonary trunk is normal in caliber. There are no filling defects identified in the central pulmonary vessels to indicate pulmonary embolus. Note that this examination was not protocoled for evaluation of the pulmonary arteries. Heart: The heart is enlarged and without pericardial effusion. There are scattered coronary artery calcifications. Lungs and pleural spaces: The trachea and central airways are clear. Subpleural airspace consolidation is seen in the lingula. There is a small left pleural effusion. There is an irregular opacity in the left upper lobe seen on image #82. An irregular and more nodular component within this region on image #80 measures 1.9 x 1.8 x 0.9 cm. An additional subsolid lesion in the superior segment of the right lower lobe on image #113 measures 1.8 x 1.8 x 1.1 cm. A subcentimeter groundglass nodule right apex image #49. No pneumothorax is seen. Mediastinum: There is no mediastinal hematoma. There are prominent mediastinal lymph nodes. A prevascular node measures 8 mm in short axis. Cely: Clear. Axillae: There is no axillary lymphadenopathy. Bony thorax: The skeletal structures are osteopenic. The bony thorax appears intact. No lytic or blastic lesions are identified. ABDOMEN AND PELVIS: Liver: The contrast-enhanced liver is normal in size, contour, and attenuation. There is no intrahepatic biliary ductal dilatation. The hepatic veins and portal veins are patent. Gallbladder: Unremarkable. Spleen: Normal in size and attenuation. Pancreas: Unremarkable. Adrenal glands: Unremarkable. Kidneys: The contrast enhanced kidneys demonstrate cortical atrophy and are without hydronephrosis. The kidneys enhance symmetrically. Scattered renal cysts measure up to 12 mm. Additional subcentimeter cortical hypodensities also likely represent cysts but are too small for definitive characterization. A circumaortic left renal vein is incidentally noted. Abdominal vasculature: The abdominal aorta is normal in course and caliber noting advanced atherosclerotic calcification. Stomach and bowel: A small hiatal hernia is noted. There is advanced colonic diverticulosis without CT evidence of acute diverticulitis. No bowel obstruction is seen. Moderate fecal retention is noted throughout the colon. Postsurgical changes noted in the right colon. The appendix is not identified and reported surgically absent. Peritoneum: There is no intraperitoneal free air or abdominal ascites. Lymphadenopathy: None. Pelvic viscera: The bladder, uterus, and adnexa are normal as visualized. Skeletal structures: The skeletal structures are osteopenic. The lumbosacral spine, bony pelvis, and proximal femora appear intact. There is moderate lumbosacral spondylosis. No lytic or blastic lesions are seen. IMPRESSION: 1. There is no acute posttraumatic intrathoracic abnormality. 2. There is no evidence of solid organ injury in the abdomen or pelvis. 3. There is subpleural consolidation in the lingular and a small left pleural effusion. The appearance favors pneumonia/aspiration pneumonitis. Clinical correlation will be required and radiographic follow-up to resolution is recommended. 4. There are 2 highly suspicious pulmonary lesions identified. These are located in the left upper lobe and the right lower lobe as detailed above. Multifocal lung cancer is the diagnosis of exclusion. An inflammatory process is considered much less likely. Follow up with pulmonology is recommended, as is a repeat chest CT in 1 to 2 months time for reassessment. 5. Advanced colonic diverticulosis without CT evidence of acute diverticulitis. 6. Additional findings as above. ACT 112: Positive. There are findings on this exam that require communication between the performing entity and the patient following Patient Test Result Information Act ([place] Act 112) guidelines. Electronically signed by: Nathan Siu M.D. 09/30/2022 5:36 PM Discharge Plan Visit Data Chief Complaint: Altered Mental Status Stated Complaint: FELL LAST WEEK, DISORIENTED, DEHYDRATED ED Provider: Marcie Hoff Discharge Problem: AMS (altered mental status), Rib pain on left side, Pneumonia Patient Disposition: Admitted As Inpatient Discharge Instructions Interventions: ED Discharge Assessment Last Done: 09/30/22 22:00
[2022-09-30 15:37] LABS: Hematocrit (blood only) 34.1 % (34.1-44.9); Hemoglobin 11.7 g/dl (12.0-16.0); Mean Corpuscular Hemoglobin 29.3 pg (25.0-34.0); Mean Corpuscular Hgb Conc 34.3 g/dL (32.0-36.0); Mean Corpuscular Volume 85.5 fL (80.0-100.0); Mean Platelet Volume 9.8 fL (9.4-12.3); Platelet Count 390 K/uL (130-400); RDW Coefficient of Variation 15.5 % (11.5-14.5); RDW Standard Deviation 48.4 fL (36.4-46.3); Red Blood Count 3.99 M/uL (3.93-5.22); White Blood Count 20.02 K/ul (4.8-10.8)
[2022-09-30] MEDS: SODIUM CHLORIDE 0.9% 1000ML 1,000 ML IV SCH ×2 (15:46→19:57)
[2022-09-30 15:49] LABS: INR 1.1 (0.9-1.1); Prothrombin Time 11.2 Seconds (9.0-12.0)
[2022-09-30 16:09] LABS: Alanine Aminotransferase 8 U/L (7-52); Albumin Level 3.9 gm/dl (3.4-5.0); Alkaline Phosphatase 53 U/L (34-104); Anion Gap 10 (3-11); Aspartate Aminotransferase 10 U/L (13-39); BUN Creatinine Ratio 17.3 (10-20); Bilirubin,Total 0.7 mg/dl (0.2-1.0); Blood Urea Nitrogen 19 mg/dl (6-23); Carbon Dioxide 25 mmol/L (21-32); Chloride 99 mmol/L (98-107); Est GFR (Non-African American) 45.7 ml/min; Globulin 3.9 gm/dl (2.5-4.0); Glucose 241 mg/dl (70-99(Fasting)); Lipase 15 U/L (11-82); Magnesium 1.4 mg/dl (1.7-2.4); Potassium 3.9 mmol/L (3.5-5.1); Sodium 134 mmol/L (136-145); Total Protein 7.8 gm/dl (6.0-8.3)
[2022-09-30 16:10] LABS: Troponin I High Sensitivity 22.8 pg/ml (0-14)
[2022-09-30 16:39] LABS: Basophils # (auto) 0.05 K/uL (0-0.2); Basophils % (auto) 0.2 %; Immature Granulocytes # (auto) 0.13 K/uL (0.00-0.02); Immature Granulocytes % (auto) 0.6 %; Lymphocytes % (auto) 3.5 %; Monocytes # (auto) 1.12 K/uL (0.24-0.82); Monocytes % (auto) 5.6 %; Neutrophils # (auto) 18.02 K/uL (1.4-6.5); Neutrophils % (auto) 90.1 %
[2022-09-30] MEDS ORDERED: OPTIRAY 350 100ml IV ONE (17:01)
--- NOTE | 2022-09-30 17:17 | CT Scan Report ---
CT SCAN OF THE BRAIN WITHOUT IV CONTRAST CLINICAL HISTORY: Trauma. Change in mental status. COMPARISON STUDY: CT of the brain dated 01/05/2017. TECHNIQUE: Unenhanced axial CT scan of the brain is performed from the vertex to the skull base. A do se lowering technique was utilized adhering to the principles of ALARA. FINDINGS: Brain parenchyma: There is age-related involutional change noting moderate to advanced subcortical an d periventricular microangiopathic disease. There is no hemorrhage, mass effect, or evidence of acute territorial ischemia by CT criteria. Kennedy-white matter differentiation is preserved. No extra-axial fluid collection is seen. Ventricles, sulci, cisterns: Prominent secondary to involutional change. Intracranial vasculature: There is atherosclerotic calcification of the cavernous carotid and vertebr al arteries. Calvarium: The skeletal structures are osteopenic. No depressed calvarial fracture is seen. Sinuses and mastoids: The visualized paranasal sinuses are clear. The mastoid air cells are well pneu matized. Orbits: The bony orbits are grossly intact. There are bilateral ocular lens implants. IMPRESSION: There is no hemorrhage, mass effect, or evidence of acute territorial ischemia by CT fiordaliza walls. ACT 112: Negative or not required by law. Electronically signed by: Nathan Siu M.D. 09/30/2022 5:15 PM
--- NOTE | 2022-09-30 17:19 | CT Scan Report ---
CT cervical spine wo con CLINICAL HISTORY: trauma TECHNIQUE: Multidetector row helical CT of the cervical spine was performed without administration of intravenous contrast. Coronal and sagittal reformations were obtained. Automated dose lowering techn iques and/or adjustment according to patient size were utilized for this exam. Comparison: None available at the time of this dictation. FINDINGS: No acute fractures or subluxations are identified. Degenerative changes are seen in the visualized sp ine. The alignment is normal. Subcentimeter thyroid nodules are seen which do not require follow-up b y ACR criteria. IMPRESSION: Degenerative changes without evidence of acute bony injury. ACT 112: Negative or not required by law. Electronically signed by: Kit Funes M.D. 09/30/2022 5:18 PM
[2022-09-30] MEDS: MAGNESIUM SULFATE / D5W 1 GM/100 ML BAG IV SCH ×3 (17:36→22:45)
--- NOTE | 2022-09-30 17:37 | CT Scan Report ---
CT SCAN OF THE CHEST, ABDOMEN, AND PELVIS WITH IV CONTRAST CLINICAL HISTORY: Trauma. Fall. COMPARISON STUDY: No priors. TECHNIQUE: Following the IV administration of 86 of Optiray 350, CT scan of the chest, abdomen, and p caryn was performed from the thoracic inlet to the proximal femora. Images are reviewed in the axial, sagittal, and coronal planes. IV contrast was administered without complication. A dose lowering te chnique was utilized adhering to the principles of ALARA. CT DOSE: 1487.90 mGy.cm FINDINGS: CHEST: Thyroid: Imaged portions of the thyroid gland are normal in size and attenuation. Thoracic aorta: There is atherosclerotic calcification of the thoracic aorta, which is normal in sveta cricket and demonstrates standard 3-vessel arch anatomy. No dissection is seen. Pulmonary vasculature: The pulmonary trunk is normal in caliber. There are no filling defects identif ied in the central pulmonary vessels to indicate pulmonary embolus. Note that this examination was no t protocoled for evaluation of the pulmonary arteries. Heart: The heart is enlarged and without pericardial effusion. There are scattered coronary artery ca lcifications. Lungs and pleural spaces: The trachea and central airways are clear. Subpleural airspace consolidatio n is seen in the lingula. There is a small left pleural effusion. There is an irregular opacity in th e left upper lobe seen on image #82. An irregular and more nodular component within this region on im age #80 measures 1.9 x 1.8 x 0.9 cm. An additional subsolid lesion in the superior segment of the rig ht lower lobe on image #113 measures 1.8 x 1.8 x 1.1 cm. A subcentimeter groundglass nodule right ape x image #49. No pneumothorax is seen. Mediastinum: There is no mediastinal hematoma. There are prominent mediastinal lymph nodes. A prevasc ular node measures 8 mm in short axis. Cely: Clear. Axillae: There is no axillary lymphadenopathy. Bony thorax: The skeletal structures are osteopenic. The bony thorax appears intact. No lytic or zeb tic lesions are identified. ABDOMEN AND PELVIS: Liver: The contrast-enhanced liver is normal in size, contour, and attenuation. There is no intrahepa tic biliary ductal dilatation. The hepatic veins and portal veins are patent. Gallbladder: Unremarkable. Spleen: Normal in size and attenuation. Pancreas: Unremarkable. Adrenal glands: Unremarkable. Kidneys: The contrast enhanced kidneys demonstrate cortical atrophy and are without hydronephrosis. T he kidneys enhance symmetrically. Scattered renal cysts measure up to 12 mm. Additional subcentimeter cortical hypodensities also likely represent cysts but are too small for definitive characterization . A circumaortic left renal vein is incidentally noted. Abdominal vasculature: The abdominal aorta is normal in course and caliber noting advanced atheroscle rotic calcification. Stomach and bowel: A small hiatal hernia is noted. There is advanced colonic diverticulosis without C T evidence of acute diverticulitis. No bowel obstruction is seen. Moderate fecal retention is noted t hroughout the colon. Postsurgical changes noted in the right colon. The appendix is not identified an d reported surgically absent. Peritoneum: There is no intraperitoneal free air or abdominal ascites. Lymphadenopathy: None. Pelvic viscera: The bladder, uterus, and adnexa are normal as visualized. Skeletal structures: The skeletal structures are osteopenic. The lumbosacral spine, bony pelvis, and proximal femora appear intact. There is moderate lumbosacral spondylosis. No lytic or blastic lesions are seen. IMPRESSION: 1. There is no acute posttraumatic intrathoracic abnormality. 2. There is no evidence of solid organ injury in the abdomen or pelvis. 3. There is subpleural consolidation in the lingular and a small left pleural effusion. The appearanc e favors pneumonia/aspiration pneumonitis. Clinical correlation will be required and radiographic fol low-up to resolution is recommended. 4. There are 2 highly suspicious pulmonary lesions identified. These are located in the left upper lo be and the right lower lobe as detailed above. Multifocal lung cancer is the diagnosis of exclusion. An inflammatory process is considered much less likely. Follow up with pulmonology is recommended, as is a repeat chest CT in 1 to 2 months time for reassessment. 5. Advanced colonic diverticulosis without CT evidence of acute diverticulitis. 6. Additional findings as above. ACT 112: Positive. There are findings on this exam that require communication between the performing entity and the patient following Patient Test Result Information Act ([place] Act 112) guidelines. Electronically signed by: Nathan Siu M.D. 09/30/2022 5:36 PM
[2022-09-30] MEDS ORDERED: cefTRIAXone SODIUM 1,000 MG in DEXTROSE 5% AD-VAN 50 ML IV STA (18:12)
[2022-09-30] MEDS ORDERED: AZITHROMYCIN 250 MG TAB PO ONE (18:12)
[2022-09-30] MEDS ORDERED: AMPICILLIN/SULBACTAM SOD 3,000 MG in 0.9 % SODIUM CHLORIDE 100 ML IV STA (18:33)
[2022-09-30 18:45] LABS: Appearance Urine Clear (Clear); Bilirubin Urine Negative (Negative); Blood Urine Negative (Negative); Color Urine Yellow; Glucose Urine UA Negative (Negative); Ketones Urine Negative (Negative); Leukocyte Esterase Urine Negative (Negative); Nitrite Urine Negative (Negative); Protein Urine Negative (Negative); Specific Gravity Urine > 1.045 (1.000-1.030); Urobilinogen Urine Negative (Negative)
--- NOTE | 2022-09-30 18:49 | History & Physical Report ---
Date of Service September 30, 2022 Assessment & Plan (1) Pneumonia: Plan: 86yo female with HTN, DM2, and OA presents with AMS. Confusion, leukocytosis suspected secondary to pneumonia Vitals on arrival notable for elevated BP (140-190s/90-120s) and tachycardia (110-140s); no tachypnea, patient afebrile, spO2 adequate on room air Labs notable for leukocytosis (20) Continue unasyn Flutter valve, incentive spirometry Fall precautions Trend CBC Hypomagnesemia Magnesium on arrival low at 1.4 Received mag sulfate 1g IV in ED Additional two bags mag sulfate 1g IV ordered Repeat serum magnesium in AM Elevated troponin On admission, hsTroponin elevated to 22.8, repeat value pending EKG: sinus tachycardia without overt ischemic change Patient without CP at this time DM2 HbA1c 6.0% (06/2022) Patient's home regimen held on admission Continue BSG checks, sliding-scale insulin, hypoglycemic protocol HTN: continue home lisinopril, amlodipine FEN: heart healthy DM2 diet, NSS @ 125mL/hr (x2 bags ordered) Code status: DNR/DNI DVT ppx: SCDs PT/OT: ordered Dispo: med/telemetry (2) AMS (altered mental status): (3) Benign essential hypertension: (4) Diabetes mellitus with microalbuminuria: (5) Rib pain on left side: History of Present Illness Primary Care Provider: Rodrick Muñoz III, CRNP 86yo female with HTN, DM2, and OA presents with AMS. Patient lives by herself and is very sharp at baseline, per family. Family states that today patient displayed significant forgetfulness and was repeating herself. Patient made several phone calls not remembering she had already called those individuals recently. Last , patient tripped over some objects on the floor - patient landed on her side and was able to get up on her own. Denies head trauma or LOC but does endorse left rib pain. Family at bedside states they do talk to her frequently as do other family members and no one noticed any changes in her mentation until today. Patient denies any neck or back pain. She denies any headaches, dizziness, vision changes, nausea or vomiting, trouble breathing, chest pain, hip or lower extremity pain, shoulder or upper extremity pain. Patient states she does have bruising along her left side and left ribs. She states that is tender with palpation. Patient takes low-dose aspirin daily, no other anticoagulation. Patient denies fever, chills, headache, vision changes, CP, palpitations, SOB, abdominal pain, nausea, vomiting, dysuria, hematochezia, melena, lightheadedness, dizziness, numbness, tingling, or other symptoms. Denies recent illness and recent travel. Upon arrival, vitals were notable for elevated BP (140-190s/90-120s) and tachycardia (110-140s); no tachypnea, patient afebrile, spO2 adequate on room air. Initial labs were notable for leukocytosis (20.0), mild anemia (11.7), mild hyponatremia (134), hypomagnesemia (1.4), and elevated hsTroponin (22.8); platelets wnl, no additional electrolyte abnormalities, creatinine not elevated, LFTs wnl, Tbili not elevated, covid PCR negative. In the ED, patient was started on NSS @ 250mL/hr, given mag sulfate 1g (x1), a dose of unasyn, and azithromycin 500mg PO. EKG: sinus tachycardia without overt ischemic change CT a/p/chest: there is no acute posttraumatic intrathoracic abnormality; there is subpleural consolidation in the lingular and a small left pleural effusion, the appearance favors pneumonia/aspiration pneumonitis; there are 2 highly suspicious pulmonary lesions identified in the left upper lobe and the right lower lobe; multifocal lung cancer is the diagnosis of exclusion, an inflammatory process is considered much less likely; follow up with pulmonology is recommended, as is a repeat chest CT in 1 to 2 months time for reassessment CT c-spine: Degenerative changes without evidence of acute bony injury. CT head: there is no hemorrhage, mass effect, or evidence of acute territorial ischemia by CT criteria Surrogate decision-maker in case of an emergency: valentin Lowe (cell: [phone]) Allergies Allergy/AdvReac Type Severity Reaction Status Date / Time No Known Allergies Allergy Unknown Verified 09/30/22 18:25 Home Medications Medication Instructions Recorded Confirmed Type multivitamin 1 tab PO QPM 06/23/19 09/30/22 History blood-glucose meter ([employer] #1 ea 06/25/20 07/07/22 Rx Ultra2 Meter) amlodipine 5 mg tablet 5 mg PO DAILY #90 tabs 07/07/22 09/30/22 Rx lancets 30 gauge ([email or web address] #100 ea 07/07/22 07/07/22 Rx Lancets) lisinopril 40 mg tablet 40 mg PO DAILY #90 tabs 07/07/22 09/30/22 Rx metformin 500 mg tablet 500 mg PO BID #180 tabs 07/07/22 09/30/22 Rx blood sugar diagnostic #200 ea 09/23/22 Rx aspirin 81 mg tablet,delayed 81 mg PO QAM 09/30/22 09/30/22 History release vit C 250 mg-vit E 90 mg-zinc 40 1 tab PO BID 09/30/22 09/30/22 History mg-copper 1 [id number] capsule ([employer] AREDS-2) Past Med/Surg History Medical History (Updated 09/30/22 @ 18:14 by Marcie Hoff DO) POLST (Physician Orders for Life-Sustaining Treatment) Surgical History History of colectomy S/P colon resection Family History Sister Breast cancer Denies family history of Ovarian cancer Prostate cancer Myocardial infarction Colorectal cancer Social History Smoking Status: Current every day smoker Second Hand Exposure: No; Hx Alcohol Use: No Hx Substance Use: No Preferred Language: Iraqi Communication Ability: Effective Visual Impairment: No Limitations Hearing Ability: Normal Pinmaker Required: No marital status: / Current Living Situation: Alone current occupational status: 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 How many Children do You have: 2 Feels Safe at Home: Yes Childhood Exposure to Second-Hand Smoke: Yes caffeine: No during the past year weight has: remained stable Dental Care, Regularly: No Physical Activity Frequency: Does not Exercise Seatbelt Use: always Sunscreen Use: Yes Assistive Devices: Cane, Denture - Upper and Glasses Review of Systems Review of Systems: See HPI Physical Exam Physical Exam: Constitutional: well-appearing, no acute distress HEENT: NCAT, no conjunctival injection, no head lacerations CV: tachycardic, regular rhythm, no murmur appreciated, extremities well- perfused, no LE edema Resp: lung sounds diminished at bases, CTABL otherwise, no wheezes/rales/rhonchi appreciated, no increased work of breathing GI: soft, nondistended, nontender, BS normoactive MSK: mild left chest wall tenderness to palpation Skin: warm, dry, no rash appreciated Neuro: alert, oriented, no focal neurologic deficit appreciated, CN2-12 grossly intact Results & Data Results & Data ([facility]) Vital Signs (Past 12 Hours) Vital Signs Temp Pulse Pulse Resp BP BP Pulse Ox 09/30/22 17:00 110 H 18 146/97 H 95 09/30/22 15:29 111 H 18 195/128 H 96 09/30/22 14:34 36.6 C 142 H 20 138/68 96 O2 Del Method 09/30/22 17:00 Room Air 09/30/22 15:29 Room Air 09/30/22 14:34 Room Air Resident Activity Tracking Resident Involvement: Resident Care Provided and Spares Scheduler Coverage Note Care Provided: Adult Hospital Medicine
[2022-09-30 19:24] LABS: Influenza A virus by PCR Negative (Neg); Influenza B virus by PCR Negative (Neg); RSV by PCR Negative (Neg); SARS CoV2 RNA(COVID-19) Ceph NEGATIVE (Negative)
[2022-09-30] MEDS ORDERED: GLUCOSE 40% GEL 15 GM TUBE PO PRN (19:28)
[2022-09-30] MEDS ORDERED: DEXTROSE 50% 50 ML SYRINGE IV PRN (19:28)
[2022-09-30] MEDS ORDERED: GLUCAGON FOR INJ 1 MG VIAL SQ PRN (19:28)
[2022-09-30] MEDS ORDERED: GLUCOSE 10 TAB/TUBE PO PRN (19:28)
[2022-09-30] MEDS ORDERED: CARBOHYDRATES FOR HYPOGLYCEMIA PO PRN (19:28)
[2022-09-30] MEDS ORDERED: ENOXAPARIN INJ 30 MG/0.3 ML SYR SQ SCH (21:00)
[2022-09-30] MEDS: INSULIN ASPART PER UNIT SC SCH (22:39)
[2022-09-30] MEDS: ACETAMINOPHEN 500 MG TAB PO SCH (22:45)
[2022-10-01] MEDS: MAGNESIUM SULFATE / D5W 1 GM/100 ML BAG IV SCH (00:05)
--- NOTE | 2022-10-01 01:31 | Billing Data ---
Date of Service September 30, 2022 Coding Level of Care Code 17311 INT INP/OBS CARE
[2022-10-01] MEDS: AMPICILLIN/SULBACTAM SOD 3,000 MG in 0.9 % SODIUM CHLORIDE 100 ML IV SCH ×3 (02:11→15:36)
[2022-10-01] MEDS: ACETAMINOPHEN 500 MG TAB PO SCH ×2 (05:16→15:36)
[2022-10-01 07:53] LABS: Hematocrit (blood only) 28.6 % (34.1-44.9); Hemoglobin 9.8 g/dl (12.0-16.0); Mean Corpuscular Hgb Conc 34.3 g/dL (32.0-36.0); Mean Corpuscular Volume 84.6 fL (80.0-100.0); Mean Platelet Volume 9.7 fL (9.4-12.3); Platelet Count 313 K/uL (130-400); RDW Coefficient of Variation 15.8 % (11.5-14.5); RDW Standard Deviation 48.7 fL (36.4-46.3); Red Blood Count 3.38 M/uL (3.93-5.22); White Blood Count 12.76 K/ul (4.8-10.8)
[2022-10-01] MEDS: INSULIN ASPART PER UNIT SC SCH ×3 (08:20→17:20)
[2022-10-01 08:30] LABS: Calcium 8.7 mg/dl (8.5-10.1); Magnesium 2.3 mg/dl (1.7-2.4); Potassium 3.7 mmol/L (3.5-5.1)
[2022-10-01 08:37] LABS: BUN Creatinine Ratio 17.7 (10-20); Est GFR (African American) 79.1 ml/min; Est GFR (Non-African American) 68.3 ml/min
[2022-10-01] MEDS ORDERED: amLODIPine BESYLATE 5 MG TAB PO SCH (09:00)
[2022-10-01] MEDS ORDERED: ASPIRIN 81 MG ECTAB PO SCH (09:00)
[2022-10-01] MEDS ORDERED: lisinopril 40 MG TAB PO SCH (09:00)
--- NOTE | 2022-10-02 06:27 | Electrocardiogram Report ---
Test Reason : Blood Pressure : / mmHG Vent. Rate : 133 BPM Atrial Rate : 133 BPM P-R Int : 168 ms QRS Dur : 092 ms QT Int : 300 ms P-R-T Axes : 000 -48 098 degrees QTc Int : 446 ms Poor data quality, interpretation may be adversely affected Sinus tachycardia with occasional Premature ventricular complexes and Fusion complexes Left axis deviation Left ventricular hypertrophy with repolarization abnormality Inferior infarct , age undetermined Anterior infarct , age undetermined Abnormal ECG When compared with ECG of 30-JUN-2005 07:05, Vent. rate has increased by 72 bpm Premature ventricular complexes are now Present T wave inversion now evident in Lateral leads T wave inversion no longer evident in Anterior leads T wave inversion no longer evident in Inferior leads Confirmed by Sandro Sanchez ([id number]) on 10/02/2022 6:27:23 AM Referred By: REFERRED SELF Confirmed By:Sandro Sanchez
--- NOTE | 2022-10-09 17:28 | Discharge Summary ---
Date of Service October 01, 2022 Admission HPI Per Admitting Provider 86yo female with HTN, DM2, and OA presents with AMS. Patient lives by herself and is very sharp at baseline, per family. Family states that today patient displayed significant forgetfulness and was repeating herself. Patient made several phone calls not remembering she had already called those individuals recently. Last , patient tripped over some objects on the floor - patient landed on her side and was able to get up on her own. Denies head trauma or LOC but does endorse left rib pain. Family at bedside states they do talk to her frequently as do other family members and no one noticed any changes in her mentation until today. Patient denies any neck or back pain. She denies any headaches, dizziness, vision changes, nausea or vomiting, trouble breathing, chest pain, hip or lower extremity pain, shoulder or upper extremity pain. Patient states she does have bruising along her left side and left ribs. She states that is tender with palpation. Patient takes low-dose aspirin daily, no other anticoagulation. Patient denies fever, chills, headache, vision changes, CP, palpitations, SOB, abdominal pain, nausea, vomiting, dysuria, hematochezia, melena, lightheadedness, dizziness, numbness, tingling, or other symptoms. Denies recent illness and recent travel. Upon arrival, vitals were notable for elevated BP (140-190s/90-120s) and tachycardia (110-140s); no tachypnea, patient afebrile, spO2 adequate on room air. Initial labs were notable for leukocytosis (20.0), mild anemia (11.7), mild hyponatremia (134), hypomagnesemia (1.4), and elevated hsTroponin (22.8); platelets wnl, no additional electrolyte abnormalities, creatinine not elevated, LFTs wnl, Tbili not elevated, covid PCR negative. In the ED, patient was started on NSS @ 250mL/hr, given mag sulfate 1g (x1), a dose of unasyn, and azithromycin 500mg PO. EKG: sinus tachycardia without overt ischemic change CT a/p/chest: there is no acute posttraumatic intrathoracic abnormality; there is subpleural consolidation in the lingular and a small left pleural effusion, the appearance favors pneumonia/aspiration pneumonitis; there are 2 highly suspicious pulmonary lesions identified in the left upper lobe and the right lower lobe; multifocal lung cancer is the diagnosis of exclusion, an inflammatory process is considered much less likely; follow up with pulmonology is recommended, as is a repeat chest CT in 1 to 2 months time for reassessment CT c-spine: Degenerative changes without evidence of acute bony injury. CT head: there is no hemorrhage, mass effect, or evidence of acute territorial ischemia by CT criteria Surrogate decision-maker in case of an emergency: valentin Lowe (cell: [phone]) Principal Diagnosis PNEUMONIA Discharge Exam Constitutional: well-appearing, no acute distress HEENT: NCAT, no conjunctival injection, no head lacerations CV: tachycardic, regular rhythm, no murmur appreciated, extremities well-perfused, no LE edema Resp: lung sounds diminished at bases, CTABL otherwise, no wheezes/rales/rhonchi appreciated, no increased work of breathing GI: soft, nondistended, nontender, BS normoactive MSK: mild left chest wall tenderness to palpation Skin: warm, dry, no rash appreciated Neuro: alert, oriented, no focal neurologic deficit appreciated, CN2-12 grossly intact Discharge Data Allergies Allergy/AdvReac Type Severity Reaction Status Date / Time No Known Allergies Allergy Unknown Verified 10/02/22 14:24 Ordered Studies 09/30/22 15:29 CT cervical spine wo con Stat CT head/brain wo con Stat 09/30/22 15:30 CT abd pelvis IV con only Stat CT chest diagnostic w con Stat Hospital Course (1) Pneumonia: 86yo female with HTN, DM2, and OA presents with AMS. Confusion, leukocytosis suspected secondary to pneumonia *Metabolic encephalopathy Likely secondary to dehydration, hypomagenesemia and pneumonia Vitals on arrival notable for elevated BP (140-190s/90-120s) and tachycardia (110-140s); no tachypnea, patient afebrile, spO2 adequate on room air Labs notable for leukocytosis (20) Continue unasyn Flutter valve, incentive spirometry Fall precautions Trend CBC Improved on 10/01. Patient will be discharged on antibiotics as noted below. Hypomagnesemia Magnesium on arrival low at 1.4 Received mag sulfate 1g IV in ED Additional two bags mag sulfate 1g IV ordered Repeat serum magnesium in AM Elevated troponin/ Demand ischemia On admission, hsTroponin elevated to 22.8, tredning down. EKG: sinus tachycardia without overt ischemic change Patient without CP at this time DM2 HbA1c 6.0% (06/2022) Patient's home regimen held on admission Continue BSG checks, sliding-scale insulin, hypoglycemic protocol HTN: continue home lisinopril, amlodipine Demand ischemia as above. (2) AMS (altered mental status): (3) Benign essential hypertension: (4) Diabetes mellitus with microalbuminuria: (5) Rib pain on left side: Total Time Total Time Spent Total Time Spent (In Minutes): 32 Discharge Plan Discharge Items Patient Disposition: Home - Self-Care Reason For Visit: AMS, PNEUMONIA, HYPOMAGNESEMIA Discharge Diagnosis: Pneumonia, hypomagnesemia Activity: Resume your previous activity Non-emergency contact: Primary Care Provider Call non-emergency contact if: you have any medication questions Follow-up/Referrals: Rodrick Muñoz III, CRNP [Primary Care Provider] - Diet: Carb Consistent or DM2 and Heart Healthy Addtl Attending Provider Instructions: You came in with a pneumonia. You responded to antibiotics. I will recommend to continue 5 more days of antibiotics. Take your next dose tonight. Pending Studies at Discharge: No Stand-Alone Forms: My [facility] [email or web address], Smoking Cessation Medications and DC Order Prescriptions: New azithromycin 500 mg tablet 500 mg PO PM Qty: 3 0RF cefuroxime axetil 500 mg tablet 500 mg PO BID Qty: 10 0RF Continued (DME) blood sugar diagnostic Strip See Dose Instructions .ROUTE .MEDSUPPLY Qty: 200 1RF Dose Instruction: As directed Rx Instructions: Use 1 strip twice daily amlodipine 5 mg tablet 5 mg PO DAILY Qty: 90 1RF lisinopril 40 mg tablet 40 mg PO DAILY Qty: 90 1RF metformin 500 mg tablet 500 mg PO BID Qty: 180 1RF (DME) lancets [OneTouch Delica Lancets] 30 gauge misc See Rx Instructions .ROUTE .MEDSUPPLY Qty: 100 1RF Rx Instructions: Use to check blood glucose one daily and PRN Ell.29 (DME) blood-glucose meter [OneTouch Ultra2 Meter] Misc See Rx Instructions .MEDSUPPLY Qty: 1 0RF Rx Instructions: Use to test blood glucose once daily multivitamin tablet 1 tab PO QPM aspirin 81 mg Tablet,Delayed Release (Dr/Ec) 81 mg PO QAM PreserVision AREDS-2 250-90-40-1 mg Capsule 1 tab PO BID Discharge Orders: Discharge Order (Routine); Ordered 10/01/22 Ordered By: Akhil Spaulding/Other Patient Handouts: What Is Pneumonia?, When You Have Pneumonia Admission Data Admit Date/Time: 09/30/22 19:27 Attending Provider: Akhil Guerrero Admit Provider: [facility] Primary Care Provider: Rodrick Muñoz III Other Interventions: Discharge Summary Assessment (RN) Last Done: 10/01/22 18:14 Coding Level of Care Code HOSP INP/OBS DISCH >30 MIN Diagnoses Pneumonia J18.9 AMS (altered mental status) R41.82 Benign essential hypertension I10 Diabetes mellitus with microalbuminuria E11.29; R80.9 Rib pain on left side R07.81
== END 2022-10-01 18:41 | disposition home or self-care (01) | DRG 193 ==
LOC: ED 14:10 → 2E 19:27 → SUATTDRO 19:27 → 2E 22:00

== ENCOUNTER 2024-06-21 09:55 | Inpatient (IN) ==
--- NOTE | 2024-06-21 10:36 | Emergency Department Note ---
Impression & Plan New onset atrial fibrillation, Fall, Elevated troponin ED Provider Note NAME: SHADE MARTÍNEZ AGE: 88 SEX: F : 1935 ARRIVES VIA: Walk-In INFORMANT: Patient, Family ED PROVIDER(S): SAGE Turner, Marcie Hoff DO CHIEF COMPLAINT: Fall HISTORY OF PRESENT ILLNESS: This 88-year-old female patient presents to the emergency department via private vehicle with family for evaluation of a fall in her home that was unwitnessed. The family reports she lives at home alone and family had a difficult time getting ahold of her this morning on the phone. The family states they had attempted contact for approximately an hour prior to the daughter arriving at the home. The daughter found the patient on floor beside the bed. Daughter reports table lamp was knocked over. The patient states she slid out of bed landing on her buttocks. She reports she did not strike her head, however, she has a small scratch behind her ear. The patient was reportedly not oriented upon family arrival, however, is oriented upon arrival to the ED. She denies the use of anticoagulants. She is able to answer questions appropriately. REVIEW OF SYSTEMS: A review of systems was performed with positives and pertinent negatives listed in the history of present illness. All other systems were reviewed and are negative. ALLERGIES: See below MEDICATIONS: See below PMH: See below PHYSICAL EXAM: VITALS: Vitals are noted on the nurse's note and reviewed by myself. Vital signs stable. GENERAL: 88-year-old female, in no acute distress, nondiaphoretic, well- developed well-nourished. SKIN: The skin was without rashes, erythema, edema, or bruising. HEAD: Normocephalic atraumatic. EARS: External auditory canals clear, tympanic membranes pearly ricketts without erythema or effusion bilaterally. EYES: Pupils equal round and reactive to light and accommodation. Conjunctivae without injection, sclerae without icterus. Extraocular movements intact. NOSE: Patent, turbinates without inflammation or discharge. No sinus tenderness. MOUTH: Mucous membranes moist. Pharynx without erythema or exudate. Uvula midline. Airway patent. Tongue does not deviate. NECK: Supple without nuchal rigidity. No lymphadenopathy. No thyromegaly. Cervical spine is nontender. No JVD. HEART: Irregular rate and rhythm, no murmurs, gallops, or rubs present. LUNGS: Clear to auscultation bilaterally without wheezes, rales or rhonchi. No retractions or accessory muscle use. ABDOMEN: Positive bowel sounds x 4. Soft, nontender, without masses or organomegaly. Arciniega sign negative. No guarding or rebound tenderness. MUSCULOSKELETAL: TTP right posterior shoulder, full ROM, no ecchymosis, small abrasion present. Right knee edema without erythema, limited ROM due to pain, DP pulse intact. NEURO: Patient was alert and oriented to person place and time. No focal neurological deficits. MEDICAL DECISION MAKING: The patient is a pleasant, 88-year-old female who arrives to the emergency department with family for evaluation of the above- stated complaint. A saline lock was established, CBC, CMP, troponin, lactate, EKG, urinalysis were obtained. CBC shows slight leukocytosis, with a stable anemia. CMP shows an elevated anion gap, lactate elevated at 3.0, likely dehydration. Troponin elevated at 71.3, with repeat 68.8. EKG was obtained which shows a new onset atrial fibrillation, with a rapid ventricular rate in the 100-[address] imaging of the head and neck, as well as x-ray imaging of the chest, shoulder, right hip with pelvis, and right knee were obtained. CT imaging as well as x-ray imaging was negative with the exception of the right knee. Right knee per my initial interpretation shows a moderate joint effusion. The patient's blood pressure was on the hypotensive side, therefore rate control was not attempted until the patient was admitted to the hospitalist. The patient was provided 1 L of normal saline for hydration, rate control, and to correct the elevated lactate. Contact was made with case management, to facilitate admission to the [facility] hospitalist group. Dr. Arenas agreed to accept the patient under his care. Please refer to his documentation for further patient workup and treatment. DIFFERENTIAL DIAGNOSIS: Infection, dehydration, metabolic abnormality, hypo/hyperglycemia, electrolyte disturbance, anemia, hypoxia, cardiac sources, intracerebral event, toxicologic, neurologic, as well as other pathologies. The patient's case was discussed with Dr. Hoff, who agreed with my evaluation and treatment plan. Continuous manager monitoring: Order was placed for continuous manager monitoring. Patient was placed on the manager monitoring. Patient was noted to be in atrial fibrillation at an initial rate of 94 bpm. The chart was completed utilizing [employer] Speech voice recognition software. Grammatical errors, random word insertions, pronoun errors, and incomplete sentences are an occasional consequence of this system due to software limitations, ambient noise, and hardware issues. Any formal questions or concerns about the content, text, or information contained within the body of this dictation should be directly addressed to the physician for clarification. Past Med/Surg History Problem List (Updated 06/26/24 @ 12:02 by SAGE Regalado) B12 deficiency anemia PAF (paroxysmal atrial fibrillation) Urinary tract infection NSVT (nonsustained ventricular tachycardia) Hyponatremia Acute kidney injury Anemia Elevated troponin (Acute) Fall (Acute) New onset atrial fibrillation (Acute) Changing skin lesion Primary cancer of left upper lobe of lung (Chronic 12/10/22) Lung cancer (Chronic) Chronic iron deficiency anemia (Acute) Osteopenia (Acute) Osteoarthritis of knee (Acute) Microalbuminuric diabetic nephropathy (Chronic) Macular degeneration (Acute) Benign essential hypertension (Acute) Diverticulosis of colon (without mention of hemorrhage) (Acute) Diabetes mellitus with microalbuminuria (Chronic) NIDDM Multiple lung nodules on CT H/O nicotine dependence 4 pack years, quit age 25 Medical History History of colon cancer 2004- colon resection- no chemo or radiation POLST (Physician Orders for Life-Sustaining Treatment) Surgical History History of bronchoscopy (12/10/22) [facility]ational Bronchoscopy and EBUS Dr. Esparza Hx of cataract extraction Hx of dilation and curettage S/P colon resection History of colectomy Family History Sister Breast cancer Father No problems noted. Mother No problems noted. Sister No problems noted. Brother No problems noted. Son No problems noted. Daughter No problems noted. Other No family history of adverse response to anesthesia Denies family history of Ovarian cancer Prostate cancer Myocardial infarction Colorectal cancer Social History Smoking Status: Former smoker Tobacco Type: Cigarettes Age Started Using Tobacco: 21; Age Quit Using Tobacco: 25; packs per day: 1; Cigarettes Per Day: quit age 25; Second Hand Exposure: No; Do You Dip or Chew Tobacco: No; Tobacco Cessation Education Requested by Patient: No Hx Alcohol Use: No Hx Substance Use: No Preferred Language: Danish Communication Ability: Effective Visual Impairment: Limited Hearing Ability: Normal Portal Architect Required: No Beliefs That Will Affect Care: None marital status: / Current Living Situation: Alone current occupational status: 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 How many Children do You have: 2 Other Information That Helps Us Care for You: No Feels Safe at Home: Yes Safety Concerns: Feels Safe At This Time Childhood Exposure to Second-Hand Smoke: Yes Diet: regular caffeine: No during the past year weight has: remained stable Dental Care, Regularly: No Physical Activity Frequency: Does not Exercise Seatbelt Use: always Sunscreen Use: Yes Assistive Devices: Cane, Denture - Upper, Denture - Lower and Glasses Allergies Allergies Allergy/AdvReac Type Severity Reaction Status Date / Time No Known Allergies Allergy Unknown Verified 06/21/24 13:14 Home Meds Home Medications Medication Instructions Recorded Confirmed multivitamin 1 tab PO QPM 06/23/19 06/21/24 aspirin 81 mg tablet,delayed 81 mg PO QAM 09/30/22 06/21/24 release vit C 250 mg-vit E 90 mg-zinc 40 1 tab PO BID 09/30/22 06/21/24 mg-copper 1 ga-lcixpe-nczpyo capsule (PreserVision AREDS-2) calcium 600 mg (as carbonate)-vit 1 tab PO QAM 11/18/22 06/21/24 D3 10 mcg (400 unit) chewable tablet (Calcium 600 with Vitamin D3) metformin 500 mg tablet 500 mg PO BID 06/21/24 06/21/24 Previous Rx's Medication Instructions Recorded blood-glucose meter (OneTouch #1 ea 06/25/20 Ultra2 Meter) amlodipine 5 mg tablet 5 mg PO DAILY #90 tabs 12/24/23 lisinopril 40 mg tablet 40 mg PO DAILY #90 tabs 12/24/23 blood sugar diagnostic #200 ea 01/12/24 blood-glucose meter (OneTouch #1 ea 01/12/24 Ultra2 Meter) lancets 30 gauge #100 ea 01/12/24 Results & Data (ED) Vital Signs Vital Signs - 24 hr 06/21/24 10:02 Temperature 36.6 C Temperature Source Temporal Artery Scan Pulse Rate 94 H Respiratory Rate 18 Respiratory Effort / Characteristics Non-Labored Spontaneous Respiratory Depth Normal Blood Pressure 97/63 L Blood Pressure Mean 74 Sepsis Recent Fever Within 48 Hours No Sepsis New/Unexplained Change in Mental Status No Sepsis Action Taken by Nursing No Action Required Home Medications Current Medication List: was personally reviewed by me Laboratory Data Attestation: I reviewed the patient's lab results. 06/25/24 07:30 06/26/24 06:03 Lab Results 06/21/24 Range/Units 11:41 WBC 12.26 H (4.8-10.8) K/ul RBC 4.23 (4.20-5.40) M/uL Hgb 11.7 L (12.0-16.0) g/dl Hct 35.2 L (37.0-47.0) % MCV 83.2 (80.0-100.0) fL MCH 27.7 (25.0-34.0) pg MCHC 33.2 (32.0-36.0) g/dL RDW Std Deviation 50.6 H (36.4-46.3) fL RDW Coeff of Jaime 16.4 H (11.5-14.5) % Plt Count 467 H (130-400) K/uL MPV 9.2 L (9.4-12.4) fL Immature Gran % (Auto) 0.4 % Neut % (Auto) 91.9 % Lymph % (Auto) 3.0 % Haines % (Auto) 4.5 % Eos % (Auto) 0.0 % Baso % (Auto) 0.2 % Neut # (Auto) 11.27 H (1.40-6.50) K/uL Lymph # (Auto) 0.37 L (1.20-3.40) K/uL Haines # (Auto) 0.55 (0.11-0.59) K/uL Eos # (Auto) 0.00 (0.00-0.50) K/uL Baso # (Auto) 0.02 (0.00-0.20) K/uL Immature Gran # (Auto) 0.05 (0.01-0.20) K/uL Polychromasia 1+ Echinocytes 1+ PT 11.4 (9.0-12.0) Seconds INR 1.1 (0.9-1.1) Sodium 133 L (136-145) mmol/L Potassium 4.1 (3.5-5.1) mmol/L Chloride 96 L (98-107) mmol/L Carbon Dioxide 24 (21-32) mmol/L Anion Gap 13 H (3-11) BUN 23 (6-23) mg/dl Creatinine 0.99 (0.6-1.2) mg/dl Est Cr Clr Drug Dosing Not Reportable eGFR 55.19 BUN/Creatinine Ratio 23.2 H (10-20) Glucose 139 H (70-99(Fasting)) mg/dl Lactate 3.0 H* (0.4-2.0) mmol/L Calcium 9.8 (8.6-10.3) mg/dl Total Bilirubin 0.8 (0.2-1.0) mg/dl AST 34 (13-39) U/L ALT 13 (7-52) U/L Alkaline Phosphatase 58 (34-104) U/L Troponin I High Sens 71.3 H* (0-14) pg/ml Total Protein 7.7 (6.0-8.3) gm/dl Albumin 4.2 (3.4-5.0) gm/dl Globulin 3.5 (2.5-4.0) gm/dl Albumin/Globulin Ratio 1.2 (0.9-2) Administered Medications Acetaminophen (Acetaminophen 325 Mg Tab) 650 mg PO Q4H PRN PRN Reason: Pain or Fever Stop: 07/21/24 15:50 Last Admin: 06/25/24 17:58 Dose: 650 mg Documented By: Admin: 06/24/24 21:20 Dose: 650 mg Documented By: Admin: 06/23/24 09:49 Dose: 650 mg Documented By: Admin: 06/22/24 16:24 Dose: 650 mg Documented By: Admin: 06/22/24 08:08 Dose: 650 mg Documented By: Admin: 06/21/24 21:15 Dose: 650 mg Documented By: [id number] Amoxicillin (Amoxicillin 875 Mg Tab) 875 mg PO BID WILFRID; Protocol Stop: 07/04/24 20:59 Last Admin: 06/26/24 07:59 Dose: 875 mg Documented By: Admin: 06/25/24 20:53 Dose: 875 mg Documented By: Admin: 06/25/24 08:11 Dose: 875 mg Documented By: Admin: 06/24/24 21:19 Dose: 875 mg Documented By: BOSSMAN Apixaban (Apixaban 2.5 Mg Tab) 2.5 mg PO BID [facility] Stop: 07/24/24 20:59 Last Admin: 06/26/24 07:59 Dose: 2.5 mg Documented By: Admin: 06/25/24 20:53 Dose: 2.5 mg Documented By: Admin: 06/25/24 08:11 Dose: 2.5 mg Documented By: Admin: 06/24/24 21:21 Dose: 2.5 mg Documented By: BOSSMAN Calcium/Vitamin D (Calcium 600mg + Vit D 400 Iu Tab) 1 tab PO [facility] Stop: 07/22/24 08:59 Last Admin: 06/26/24 07:59 Dose: 1 tab Documented By: Admin: 06/25/24 08:12 Dose: 1 tab Documented By: Admin: 06/24/24 09:11 Dose: 1 tab Documented By: Admin: 06/23/24 09:48 Dose: 1 tab Documented By: Admin: 06/22/24 08:07 Dose: 1 tab Documented By: SERG Cyanocobalamin (Cyanocobalamin (B-12) 500 Mcg Tablet) 1,000 mcg PO [facility] Stop: 07/24/24 08:59 Last Admin: 06/26/24 07:59 Dose: 1,000 mcg Documented By: Admin: 06/25/24 08:12 Dose: 1,000 mcg Documented By: Admin: 06/24/24 09:11 Dose: 1,000 mcg Documented By: HENRY Docusate Sodium (Docusate Sodium 100 Mg Cap) 100 mg PO BID PRN PRN Reason: Constipation Stop: 07/23/24 12:48 Last Admin: 06/25/24 08:14 Dose: 100 mg Documented By: HENRY Ferrous Sulfate (Ferrous Sulfate 325 Mg Tab) 325 mg PO [facility] Stop: 07/23/24 09:14 Last Admin: 06/26/24 07:59 Dose: 325 mg Documented By: Admin: 06/25/24 08:12 Dose: 325 mg Documented By: [email or web address] Admin: 06/24/24 09:09 Dose: 325 mg Documented By: Admin: 06/23/24 09:48 Dose: 325 mg Documented By: SERG Lisinopril (Lisinopril 40 Mg Tab) 40 mg PO DAILY WILFRID Stop: 07/25/24 09:44 Last Admin: 06/26/24 07:59 Dose: 40 mg Documented By: Admin: 06/25/24 10:39 Dose: 40 mg Documented By: HENRY Metoprolol Tartrate (Metoprolol Tartrate 25 Mg Tab) 25 mg PO BID WILFRID Stop: 07/23/24 09:14 Last Admin: 06/26/24 07:59 Dose: 25 mg Documented By: Admin: 06/25/24 20:54 Dose: 25 mg Documented By: Admin: 06/25/24 08:12 Dose: 25 mg Documented By: Admin: 06/24/24 21:22 Dose: 25 mg Documented By: Admin: 06/24/24 09:09 Dose: 25 mg Documented By: Admin: 06/23/24 20:17 Dose: 25 mg Documented By: Admin: 06/23/24 09:47 Dose: 25 mg Documented By: SERG Multivitamins/Minerals (Cerovite Adv Formula Tab) 1 tab PO BID WILFRID Stop: 07/21/24 20:59 Last Admin: 06/26/24 07:59 Dose: 1 tab Documented By: Admin: 06/25/24 20:54 Dose: 1 tab Documented By: Admin: 06/25/24 08:11 Dose: 1 tab Documented By: Admin: 06/24/24 21:21 Dose: 1 tab Documented By: Admin: 06/24/24 09:11 Dose: 1 tab Documented By: Admin: 06/23/24 20:17 Dose: 1 tab Documented By: Admin: 06/23/24 09:47 Dose: 1 tab Documented By: Admin: 06/22/24 20:25 Dose: 1 tab Documented By: Soraya Admin: 06/22/24 08:07 Dose: 1 tab Documented By: Admin: 06/21/24 21:14 Dose: 1 tab Documented By: [id number] Discontinued Medications Cyanocobalamin (Cyanocobalamin 1000 Mcg/Ml Vial) 1,000 mcg IM ONE ONE Stop: 06/23/24 09:08 Last Admin: 06/23/24 09:48 Dose: 1,000 mcg Documented By: SERG Enoxaparin Sodium (Enoxaparin Inj 40 Mg/0.4 Ml Syr) 30 mg SQ Q24H WILFRID Stop: 07/23/24 19:59 Last Admin: 06/23/24 20:21 Dose: 30 mg Documented By: JOVITA Heparin Sodium (Porcine) (Heparin Sod (Porcine) 1000 Unit/Ml) 3,000 units IV NOW ONE Stop: 06/21/24 18:31 Last Admin: 06/21/24 18:30 Dose: 3,000 units Documented By: ALDAIR Co-signed By: CHARLIE Sodium Chloride (Nss) 1,000 mls @ 999 mls/hr IV .Q1H1M WILFRID Stop: 06/21/24 12:30 Last Infusion: 06/21/24 16:07 Dose: Infused Documented By: Admin: 06/21/24 11:48 Dose: 999 mls/hr Documented By: MIROSLAVA Sodium Chloride (Nss) 1,000 mls @ 999 mls/hr IV .Q1H1M ONE Stop: 06/21/24 15:15 Last Admin: 06/21/24 16:08 Dose: Not Given Documented By: ALDAIR Heparin Sodium/Dextrose (Heparin Sodium/Dextrose) 25,000 units in 500 mls @ 14 mls/hr IV .Q24H [facility]; Protocol Stop: 07/21/24 18:14 Last Titration: 06/22/24 14:37 Dose: Infused Documented By: SERG Co-signed By: TMP Titration: 06/22/24 14:31 Dose: 0 units/hr, 0 mls/hr Documented By: SERG Co-signed By: TMP Titration: 06/22/24 09:52 Dose: 700 units/hr, 14 mls/hr Documented By: SERG Co-signed By: TMP Titration: 06/22/24 02:40 Dose: 650 units/hr, 13 mls/hr Documented By: [id number] Co-signed By: MCS Titration: 06/21/24 19:11 Dose: 600 units/hr, 12 mls/hr Documented By: [id number] Co-signed By: ALDAIR Admin: 06/21/24 18:31 Dose: 600 units/hr, 12 mls/hr Documented By: ALDAIR Co-signed By: CHARLIE Ceftriaxone Sodium (Rocephin) 1,000 mg in 50 mls @ 100 mls/hr IV Q24H WILFRID Stop: 06/27/24 13:29 Last Infusion: 06/24/24 14:00 Dose: Infused Documented By: Admin: 06/24/24 13:27 Dose: 100 mls/hr Documented By: Infusion: 06/23/24 15:35 Dose: Infused Documented By: Admin: 06/23/24 15:04 Dose: 100 mls/hr Documented By: Infusion: 06/22/24 14:25 Dose: Infused Documented By: Admin: 06/22/24 13:54 Dose: 100 mls/hr Documented By: SERG Lactated Ringer's (Lr) 1,000 mls @ 125 mls/hr IV .Q8H ONE Stop: 06/23/24 01:13 Last Infusion: 06/23/24 01:50 Dose: Infused Documented By: [id number] Admin: 06/22/24 17:31 Dose: 125 mls/hr Documented By: SERG Metoprolol Tartrate (Metoprolol Tartrate 25 Mg Tab) 25 mg PO BID WILFRID Stop: 07/21/24 20:59 Last Admin: 06/22/24 08:07 Dose: 25 mg Documented By: Admin: 06/21/24 21:14 Dose: 25 mg Documented By: [id number] Polyethylene Glycol (Polyethylene (Miralax) 17 Gm Pack) 17 gm PO ONE ONE Stop: 06/24/24 11:35 Last Admin: 06/24/24 12:13 Dose: 17 gm Documented By: HENRY Imaging Data Attestation: I personally reviewed and interpreted this imaging study as follows: Discharge Plan Visit Data Chief Complaint: Fall Stated Complaint: CONFUSION, DEHYDRATED, FOUND ON FLOOR ED Provider: Marcie Hoff ED Midlevel Provider: Mercy Hassan Discharge Problem: New onset atrial fibrillation, Fall, Elevated troponin Patient Disposition: Admitted As Inpatient Discharge Instructions Interventions: ED Discharge Assessment Last Done: 06/21/24 15:23
[2024-06-21] MEDS: SODIUM CHLORIDE 0.9% 1,000 ML IV SCH (11:48)
[2024-06-21 11:59] LABS: Hematocrit (blood only) 35.2 % (37.0-47.0); Hemoglobin 11.7 g/dl (12.0-16.0); Mean Corpuscular Hemoglobin 27.7 pg (25.0-34.0); Mean Corpuscular Hgb Conc 33.2 g/dL (32.0-36.0); Mean Corpuscular Volume 83.2 fL (80.0-100.0); Mean Platelet Volume 9.2 fL (9.4-12.4); Platelet Count 467 K/uL (130-400); RDW Coefficient of Variation 16.4 % (11.5-14.5); RDW Standard Deviation 50.6 fL (36.4-46.3); Red Blood Count 4.23 M/uL (4.20-5.40); White Blood Count 12.26 K/ul (4.8-10.8)
[2024-06-21 12:13] LABS: Alanine Aminotransferase 13 U/L (7-52); Albumin Globulin Ratio 1.2 (0.9-2); Albumin Level 4.2 gm/dl (3.4-5.0); Alkaline Phosphatase 58 U/L (34-104); Anion Gap 13 (3-11); Aspartate Aminotransferase 34 U/L (13-39); BUN Creatinine Ratio 23.2 (10-20); Bilirubin,Total 0.8 mg/dl (0.2-1.0); Blood Urea Nitrogen 23 mg/dl (6-23); Calcium 9.8 mg/dl (8.6-10.3); Carbon Dioxide 24 mmol/L (21-32); Chloride 96 mmol/L (98-107); Globulin 3.5 gm/dl (2.5-4.0); Glucose 139 mg/dl (70-99(Fasting)); Potassium 4.1 mmol/L (3.5-5.1); Sodium 133 mmol/L (136-145); Total Protein 7.7 gm/dl (6.0-8.3)
[2024-06-21 12:22] LABS: Troponin I High Sensitivity 71.3 pg/ml (0-14)
--- NOTE | 2024-06-21 12:22 | CT Scan Report ---
CT SCAN OF THE CERVICAL SPINE CLINICAL HISTORY: Trauma. COMPARISON STUDY: CT of the cervical spine dated 09/30/2022. TECHNIQUE: CT scan of the cervical spine is performed from the skull base to the upper thoracic spine . Images are reviewed in the axial, sagittal, and coronal planes. IV contrast was not administered fo r this examination. A dose lowering technique was utilized adhering to the principles of ALARA. FINDINGS: Skeletal structures: The skeletal structures are osteopenic. There is no evidence of fracture or subl uxation involving the cervical spine. Vertebral body height and alignment are maintained. Anterior os teophytes are seen throughout. The odontoid process and lateral masses are intact. The atlantoaxial a rticulation is preserved noting productive degenerative change. The spinous processes appear intact. There is moderate multilevel cervical spondylosis. Uncovertebral and facet arthropathy contribute to neural foraminal narrowing at several levels. Intervertebral discs: There is severe disc space narrowing at C4-C5, C5-C6, and C6-C7 with associated endplate sclerosis. Milder narrowing is noted at the remaining cervical levels. Central canal: Posterior disc osteophyte complexes are seen at all cervical levels between C2-C3 and C6-C7. This contribute to multilevel acquired compromise of the central canal. Soft tissues: The prevertebral and paraspinous soft tissues are within normal limits. There is athero sclerotic calcification of the carotid bulbs. The thyroid gland is normal in size and heterogeneous i n attenuation. Calvarium: The visualized calvarium at the skull base appears intact. Brain parenchyma: Partially visualized brain parenchyma at the skull base is within normal limits. Sinuses and mastoids: There is trace mucosal thickening in right sphenoid sinus. The mastoid air cell s are well pneumatized. Lung apices: 2 subcentimeter ground glass nodules at the right apex are similar to prior studies. Api yue lung parenchyma is otherwise clear as visualized. IMPRESSION: 1. There is no evidence of fracture or subluxation involving the cervical spine. 2. Osteopenia and spondylotic change as above. ACT 112: Negative or not required by law. Electronically signed by: Nathan Siu M.D. 06/21/2024 12:19 PM
[2024-06-21 12:24] LABS: INR 1.1 (0.9-1.1); Prothrombin Time 11.4 Seconds (9.0-12.0)
--- NOTE | 2024-06-21 12:24 | CT Scan Report ---
CT SCAN OF THE BRAIN WITHOUT IV CONTRAST CLINICAL HISTORY: Trauma. COMPARISON STUDY: CT of the brain dated 09/30/2022 TECHNIQUE: Unenhanced axial CT scan of the brain is performed from the vertex to the skull base. A do se lowering technique was utilized adhering to the principles of ALARA. CT DOSE: 1054.73 mGy.cm FINDINGS: Brain parenchyma: There is age-related involutional change noting moderate to advanced subcortical an d periventricular microangiopathic disease. There is no hemorrhage, mass effect, or evidence of acute territorial ischemia by CT criteria. Kennedy-white matter differentiation is preserved. No extra-axial fluid collection is seen. Ventricles, sulci, cisterns: Prominent secondary to involutional change. Intracranial vasculature: There is atherosclerotic calcification of the cavernous carotid and vertebr al arteries. Calvarium: Unremarkable. Sinuses and mastoids: The visualized paranasal sinuses are clear. The mastoid air cells are well pneu matized. Orbits: The bony orbits are grossly intact. There are bilateral ocular lens implants. IMPRESSION: There is no hemorrhage, mass effect, or evidence of acute territorial ischemia by CT fiordaliza walls. ACT 112: Negative or not required by law. Electronically signed by: Nathan Siu M.D. 06/21/2024 12:23 PM
[2024-06-21 12:26] LABS: Basophils # (auto) 0.02 K/uL (0.00-0.20); Basophils % (auto) 0.2 %; Echinocytes 1+; Immature Granulocytes # (auto) 0.05 K/uL (0.01-0.20); Immature Granulocytes % (auto) 0.4 %; Lymphocytes # (auto) 0.37 K/uL (1.20-3.40); Monocytes # (auto) 0.55 K/uL (0.11-0.59); Monocytes % (auto) 4.5 %; Neutrophils # (auto) 11.27 K/uL (1.40-6.50); Neutrophils % (auto) 91.9 %; Polychromasia 1+
--- NOTE | 2024-06-21 12:43 | XRay Report ---
XR knee RT 1 or 2V routine CLINICAL HISTORY: fall TECHNIQUE: 2 views of the right knee were obtained. Comparison: Comparison is made to knee radiographs 04/02/2012 FINDINGS: There is no evidence of an acute fracture. Degenerative changes are seen in the knee joint. No joint effusion is seen. No soft tissue abnormality is seen. IMPRESSION: Degenerative changes without evidence of acute injury. ACT 112: Negative or not required by law. Electronically signed by: Kit Funes M.D. 06/21/2024 12:42 PM
--- NOTE | 2024-06-21 12:52 | XRay Report ---
RIGHT SHOULDER 3 VIEWS CLINICAL HISTORY: Fall. FINDINGS: 3 portable views of the right shoulder are obtained. No prior studies are available for [facility] at the time of dictation. The skeletal structures are osteopenic. There is no radiographic ev idence of fracture or dislocation. Mild productive degenerative change is noted at the acromioclavicu lar joint. The glenohumeral articulation is preserved. The overlying soft tissues are normal as image d. The visualized right upper lobe lung parenchyma appears clear. Cervical spondylosis is partially v isualized. IMPRESSION: No acute bony abnormality is identified. Electronically signed by: Nathan Siu M.D. 06/21/2024 12:51 PM
--- NOTE | 2024-06-21 12:53 | XRay Report ---
XR hip CHINTAN 2v w pelvis HISTORY: 88 years-old Female fall acute pelvic pain status post fall COMPARISON: CT 09/30/2022 TECHNIQUE: AP view of the pelvis with 2 views of the hips FINDINGS: Moderate with mild to moderate left hip osteoarthritis. Demineralized appearance of the bones. No acu te fracture, dislocation or avascular necrosis. Arterial calcifications. IMPRESSION: No acute fracture or dislocation. ACT 112: Negative or not required by law. The above report was generated using voice recognition software. It may contain grammatical, syntax o r spelling errors. Electronically signed by: Gualberto White M.D. 06/21/2024 12:52 PM
--- NOTE | 2024-06-21 12:55 | XRay Report ---
XR chest 1V portable HISTORY: 88 years-old Female fall acute chest trauma status post fall COMPARISON: Chest CT 05/27/2024 TECHNIQUE: AP view of the chest FINDINGS: Cardiomediastinal and hilar silhouettes are within normal limits. Emphysema. Subsolid nodular opaciti es of the lungs are redemonstrated, notably within the left upper lobe and superior segment right low er lobe, better characterized on the prior chest CT. Bones appear grossly intact. IMPRESSION: 1. No acute posttraumatic abnormality of the chest. 2. No pneumothorax. 3. Bilateral lung lesions are better seen and characterized on the comparison chest CT from 05/27/2024 . ACT 112: Negative or not required by law. The above report was generated using voice recognition software. It may contain grammatical, syntax o r spelling errors. Electronically signed by: Gualberto White M.D. 06/21/2024 12:54 PM
--- NOTE | 2024-06-21 13:02 | Electrocardiogram Report ---
Test Reason : Blood Pressure : */* mmHG Vent. Rate : 104 BPM Atrial Rate : * BPM P-R Int : * ms QRS Dur : 98 ms QT Int : 354 ms P-R-T Axes : * -63 102 degrees QTcB Int : 465 ms Poor data quality, interpretation may be adversely affected Sinus tachycardia with frequent Premature atrial complexes Premature ventricular complexes Left axis deviation Incomplete right bundle branch block Minimal voltage criteria for LVH, may be normal variant Inferior infarct (cited on or before 30-Sep-2022) Cannot rule out Anterior infarct Abnormal ECG When compared with ECG of 30-Sep-2022 15:00, Incomplete right bundle branch block is now Present Reconfirmed by Collin Ross ([id number]) on 06/22/2024 2:12:51 PM Referred By: REFERRED SELF Confirmed By: Collin Ross
--- NOTE | 2024-06-21 14:34 | History & Physical Report ---
Date of Service June 21, 2024 Assessment & Plan (1) New onset atrial fibrillation: Plan: Asymptomatic Start metoprolol 25mg PO BID Anticoagulation with IV heparin overnight (low dose due to advanced age) - [id number] 4, no prior bleeding episodes TSH with AM labs TTE in AM (2) Fall: Plan: Appears to be back to her baseline at this time Suspected secondary to ongoing right knee effusion and pain from OA Mild graze injury to right shoulder No bone injury from fall UA pending however no urinary symptoms from history (3) Benign essential hypertension: Plan: Holding anti-hypertensives to allow up titration of AV ruchi blocking agents as needed (4) Diabetes mellitus with microalbuminuria: Plan: Low HbA1C 5.8 in January and only on metformin therefore no need to cover with insulin, BSG ACHS or diabetic diet (5) Elevated troponin: Plan: Suspect secondary to demand in setting of a. fib RVR. No chest pain or shortness of breath to suggest ACS TTE tomorrow Plan VTE Prophylaxis - IV heparin Diet - regular Disposition - admit to med/tele Admission and Anticipated Discharge Date Admission Date: June 22, 2024 History of Present Illness Chief Complaint: Slipped out of bed Primary Care Provider: Rodrick Muñoz III, SAGE Nino Lowe is an 88 year old female who presents to the ER after being found on the floor after slipping out of bed this morning. She denies frequent falls. She denies any current injuries from the fall. She wasn't answering her phone therefore son went to see her and the lamp had been knocked over. She said she slipped out of bed onto her bottom but did not hit her head. She feels current at her baseline but was disorientated when found. She was noted to be in atrial fibrillation in the ER and reports never having this rhythm before. She denies any chest pain, shortness of breath, palpitations, presyncope or syncope. Allergies Allergy/AdvReac Type Severity Reaction Status Date / Time No Known Allergies Allergy Unknown Verified 06/21/24 13:14 Home Medications Medication Instructions Recorded Confirmed Type multivitamin 1 tab PO QPM 06/23/19 06/21/24 History blood-glucose meter (AvanthaTouch #1 ea 06/25/20 01/12/24 Rx Ultra2 Meter) aspirin 81 mg tablet,delayed 81 mg PO QAM 09/30/22 06/21/24 History release vit C 250 mg-vit E 90 mg-zinc 40 1 tab PO BID 09/30/22 06/21/24 History mg-copper 1 ak-coznxy-jmtcis capsule (PreserVision AREDS-2) calcium 600 mg (as carbonate)-vit 1 tab PO QAM 11/18/22 06/21/24 History D3 10 mcg (400 unit) chewable tablet (Calcium 600 with Vitamin D3) amlodipine 5 mg tablet 5 mg PO DAILY #90 tabs 12/24/23 06/21/24 Rx lisinopril 40 mg tablet 40 mg PO DAILY #90 tabs 12/24/23 06/21/24 Rx blood sugar diagnostic #200 ea 01/12/24 01/12/24 Rx blood-glucose meter (OneTouch #1 ea 01/12/24 01/12/24 Rx Ultra2 Meter) lancets 30 gauge #100 ea 01/12/24 01/12/24 Rx metformin 500 mg tablet 500 mg PO BID 06/21/24 06/21/24 History Past Med/Surg History Problem List (Updated 06/22/24 @ 07:47 by Ricki Arenas MD) Elevated troponin Fall New onset atrial fibrillation Changing skin lesion Primary cancer of left upper lobe of lung (Chronic 12/10/22) Lung cancer (Chronic) Chronic iron deficiency anemia (Acute) Osteopenia (Acute) Osteoarthritis of knee (Acute) Microalbuminuric diabetic nephropathy (Chronic) Macular degeneration (Acute) Benign essential hypertension (Acute) Diverticulosis of colon (without mention of hemorrhage) (Acute) Diabetes mellitus with microalbuminuria (Chronic) NIDDM Multiple lung nodules on CT H/O nicotine dependence 4 pack years, quit age 25 Medical History Lung cancer History of colon cancer H/O nicotine dependence Multiple lung nodules on CT POLST (Physician Orders for Life-Sustaining Treatment) Diabetes mellitus with microalbuminuria Diverticulosis of colon (without mention of hemorrhage) Benign essential hypertension Macular degeneration Microalbuminuric diabetic nephropathy Osteoarthritis of knee Osteopenia Surgical History History of bronchoscopy (12/10/22) Hx of cataract extraction Hx of dilation and curettage S/P colon resection History of colectomy Family History Sister Breast cancer Father No problems noted. Mother No problems noted. Sister No problems noted. Brother No problems noted. Son No problems noted. Daughter No problems noted. Other No family history of adverse response to anesthesia Denies family history of Ovarian cancer Prostate cancer Myocardial infarction Colorectal cancer Social History Smoking Status: Former smoker Tobacco Type: Cigarettes Age Started Using Tobacco: 21; Age Quit Using Tobacco: 25; packs per day: 1; Cigarettes Per Day: quit age 25; Second Hand Exposure: No; Do You Dip or Chew Tobacco: No; Tobacco Cessation Education Requested by Patient: No Hx Alcohol Use: No Hx Substance Use: No Preferred Language: German Communication Ability: Effective Visual Impairment: Limited Hearing Ability: Normal Slate Splitting Supervisor Required: No Beliefs That Will Affect Care: None marital status: / Current Living Situation: Alone current occupational status: 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 How many Children do You have: 2 Other Information That Helps Us Care for You: No Feels Safe at Home: Yes Safety Concerns: Feels Safe At This Time Childhood Exposure to Second-Hand Smoke: Yes Diet: regular caffeine: No during the past year weight has: remained stable Dental Care, Regularly: No Physical Activity Frequency: Does not Exercise Seatbelt Use: always Sunscreen Use: Yes Assistive Devices: Cane, Denture - Upper, Denture - Lower, Glasses and Walker Review of Systems Review of Systems: All systems reviewed & are unremarkable except as noted in HPI & below Physical Exam Constitutional: WD/WN, vitals as above Eyes: PERRL, conjunctivae normal, anicteric sclerae ENMT: external ear and nose normal, oropharynx normal Respiratory: normal respiratory effort, lungs clear to auscultation Cardiovascular: Rate/Rhythm: + tachycardic and + irregularly irregular Heart Sounds: no murmur Extremities: normal capillary refill; no calf tenderness and no pedal edema Gastrointestinal (Abdomen): normal bowel sounds, soft, nontender, no hepatosplenomegaly Musculoskeletal: Knee: + effusion (right) and + joint line tenderness (right medial) Skin: graze over right shoulder Neurologic: moves all extremities and awake; no focal motor deficits and not confused Speech / Cognition: normal speech Motor/Sensory: no tremor and no pronator drift Cranial Nerves: PERRL, EOM intact bilaterally, normal facial strength, tongue midline, able to rotate head bilaterally, able to elevate shoulders bilaterally, no nystagmus and symmetric palate elevation Psychiatric: A+Ox3, euthymic affect Results & Data Results & Data Vital Signs (Past 12 Hours) Vital Signs Temp Pulse Resp BP 06/21/24 10:56 103 H 06/21/24 10:02 36.6 C 94 H 18 97/63 L Laboratory Results Abnormal lab results 06/21/24 Range/Units 11:41 WBC 12.26 H (4.8-10.8) K/ul Hgb 11.7 L (12.0-16.0) g/dl Hct 35.2 L (37.0-47.0) % RDW Std Deviation 50.6 H (36.4-46.3) fL RDW Coeff of Jaime 16.4 H (11.5-14.5) % Plt Count 467 H (130-400) K/uL MPV 9.2 L (9.4-12.4) fL Neut # (Auto) 11.27 H (1.40-6.50) K/uL Lymph # (Auto) 0.37 L (1.20-3.40) K/uL Sodium 133 L (136-145) mmol/L Chloride 96 L (98-107) mmol/L Anion Gap 13 H (3-11) BUN/Creatinine Ratio 23.2 H (10-20) Glucose 139 H (70-99(Fasting)) mg/dl Lactate 3.0 H* (0.4-2.0) mmol/L Troponin I High Sens 71.3 H* (0-14) pg/ml Diagnostic Findings CT SCAN OF THE BRAIN WITHOUT IV CONTRAST CLINICAL HISTORY: Trauma. COMPARISON STUDY: CT of the brain dated 09/30/2022 TECHNIQUE: Unenhanced axial CT scan of the brain is performed from the vertex to the skull base. A dose lowering technique was utilized adhering to the principles of ALARA. CT DOSE: 1054.73 mGy.cm FINDINGS: Brain parenchyma: There is age-related involutional change noting moderate to advanced subcortical and periventricular microangiopathic disease. There is no hemorrhage, mass effect, or evidence of acute territorial ischemia by CT criteria. Kennedy-white matter differentiation is preserved. No extra-axial fluid collection is seen. Ventricles, sulci, cisterns: Prominent secondary to involutional change. Intracranial vasculature: There is atherosclerotic calcification of the cave rnous carotid and vertebral arteries. Calvarium: Unremarkable. Sinuses and mastoids: The visualized paranasal sinuses are clear. The mastoid air cells are well pneumatized. Orbits: The bony orbits are grossly intact. There are bilateral ocular lens implants. IMPRESSION: There is no hemorrhage, mass effect, or evidence of acute territorial ischemia by CT criteria. CT SCAN OF THE CERVICAL SPINE CLINICAL HISTORY: Trauma. COMPARISON STUDY: CT of the cervical spine dated 09/30/2022. TECHNIQUE: CT scan of the cervical spine is performed from the skull base to the upper thoracic spine. Images are reviewed in the axial, sagittal, and coronal planes. IV contrast was not administered for this examination. A dose lowering technique was utilized adhering to the principles of ALARA. FINDINGS: Skeletal structures: The skeletal structures are osteopenic. There is no evidence of fracture or subluxation involving the cervical spine. Vertebral body height and alignment are maintained. Anterior osteophytes are seen throughout. The odontoid process and lateral masses are intact. The atlantoaxial articulation is preserved noting productive degenerative change. The spinous processes appear intact. There is moderate multilevel cervical spondylosis. Uncovertebral and facet arthropathy contribute to neural foraminal narrowing at several levels. Intervertebral discs: There is severe disc space narrowing at C4-C5, C5-C6, and C6-C7 with associated endplate sclerosis. Milder narrowing is noted at the remaining cervical levels. Central canal: Posterior disc osteophyte complexes are seen at all cervical levels between C2-C3 and C6-C7. This contribute to multilevel acquired compromise of the central canal. Soft tissues: The prevertebral and paraspinous soft tissues are within normal limits. There is atherosclerotic calcification of the carotid bulbs. The thyroid gland is normal in size and heterogeneous in attenuation. Calvarium: The visualized calvarium at the skull base appears intact. Brain parenchyma: Partially visualized brain parenchyma at the skull base is within normal limits. Sinuses and mastoids: There is trace mucosal thickening in right sphenoid sinus. The mastoid air cells are well pneumatized. Lung apices: 2 subcentimeter ground glass nodules at the right apex are similar to prior studies. Apical lung parenchyma is otherwise clear as visualized. IMPRESSION: 1. There is no evidence of fracture or subluxation involving the cervical spine. 2. Osteopenia and spondylotic change as above. XR hip CHINTAN 2v w pelvis HISTORY: 88 years-old Female fall acute pelvic pain status post fall COMPARISON: CT 09/30/2022 TECHNIQUE: AP view of the pelvis with 2 views of the hips FINDINGS: Moderate with mild to moderate left hip osteoarthritis. Demineralized appearance of the bones. No acute fracture, dislocation or avascular necrosis. Arterial calcifications. IMPRESSION: No acute fracture or dislocation. XR chest 1V portable HISTORY: 88 years-old Female fall acute chest trauma status post fall COMPARISON: Chest CT 05/27/2024 TECHNIQUE: AP view of the chest FINDINGS: Cardiomediastinal and hilar silhouettes are within normal limits. Emphysema. Subsolid nodular opacities of the lungs are redemonstrated, notably within the left upper lobe and superior segment right lower lobe, better characterized on the prior chest CT. Bones appear grossly intact. IMPRESSION: 1. No acute posttraumatic abnormality of the chest. 2. No pneumothorax. 3. Bilateral lung lesions are better seen and characterized on the comparison ch est CT from 05/27/2024. RIGHT SHOULDER 3 VIEWS CLINICAL HISTORY: Fall. FINDINGS: 3 portable views of the right shoulder are obtained. No prior studies are available for comparison at the time of dictation. The skeletal structures are osteopenic. There is no radiographic evidence of fracture or dislocation. Mild productive degenerative change is noted at the acromioclavicular joint. The glenohumeral articulation is preserved. The overlying soft tissues are normal as imaged. The visualized right upper lobe lung parenchyma appears clear. Cervical spondylosis is partially visualized. IMPRESSION: No acute bony abnormality is identified. XR knee RT 1 or 2V routine CLINICAL HISTORY: fall TECHNIQUE: 2 views of the right knee were obtained. Comparison: Comparison is made to knee radiographs 04/02/2012 FINDINGS: There is no evidence of an acute fracture. Degenerative changes are seen in the knee joint. No joint effusion is seen. No soft tissue abnormality is seen. IMPRESSION: Degenerative changes without evidence of acute injury. Medications Administered ER Medications Given: NSS 1L bolus ECG Rate (beats per minute): 104 Rhythm: atrial fibrillation Findings: + RBBB (incomplkete) and + left axis deviation Comparison ECG Date: from (September 30, 2022) Change: the following changes noted (atrial fibrillation replaced normal sinus rhythm) Code Status & VTE Plan Code Status DNR/DNI PG Care Time/CCT Total # of Minutes Spent Total Time Spent with Patient: Total time spent is greater than 50% in coordination of care (as documented) at patient's floor/unit and/or counseling patient: Coding Level of Care Code 29659 INT INP/OBS CARE 2/55MIN Diagnoses New onset atrial fibrillation I48.91 Fall W19.XXXA Benign essential hypertension I10 Diabetes mellitus with microalbuminuria E11.29; R80.9 Elevated troponin R79.89
[2024-06-21] MEDS: SODIUM CHLORIDE 0.9% 1,000 ML IV ONE (16:08)
[2024-06-21] MEDS ORDERED: Heparin IV Adult Wt-Based Low-Dose w/ INITIAL Bolus Protocol IV STA (17:57)
[2024-06-21] MEDS: HEPARIN SOD (PORCINE) 1000 UNIT/ML IV ONE (18:30)
[2024-06-21] MEDS: HEPARIN SODIUM/DEXTROSE 25,000 UNITS/500 ML BAG IV SCH (18:31)
[2024-06-21 18:42] LABS: Basophils # (auto) 0.02 K/uL (0.00-0.20); Basophils % (auto) 0.2 %; Eosinophils # (auto) 0.01 K/uL (0.00-0.50); Eosinophils % (auto) 0.1 %; Hematocrit (blood only) 30.2 % (37.0-47.0); Hemoglobin 10.5 g/dl (12.0-16.0); Immature Granulocytes # (auto) 0.07 K/uL (0.01-0.20); Immature Granulocytes % (auto) 0.5 %; Lymphocytes # (auto) 0.57 K/uL (1.20-3.40); Lymphocytes % (auto) 4.4 %; Mean Corpuscular Hemoglobin 28.3 pg (25.0-34.0); Mean Corpuscular Hgb Conc 34.8 g/dL (32.0-36.0); Mean Corpuscular Volume 81.4 fL (80.0-100.0); Mean Platelet Volume 9.4 fL (9.4-12.4); Monocytes # (auto) 0.91 K/uL (0.11-0.59); Monocytes % (auto) 7.1 %; Neutrophils # (auto) 11.27 K/uL (1.40-6.50); Neutrophils % (auto) 87.7 %; Platelet Count 441 K/uL (130-400); RDW Coefficient of Variation 16.5 % (11.5-14.5); RDW Standard Deviation 49.3 fL (36.4-46.3); Red Blood Count 3.71 M/uL (4.20-5.40); White Blood Count 12.85 K/ul (4.8-10.8)
[2024-06-21 19:01] LABS: INR 1.1 (0.9-1.1); Partial Thromboplastin Time 28 Seconds (21-31); Prothrombin Time 11.5 Seconds (9.0-12.0)
[2024-06-21] MEDS: METOPROLOL TARTRATE 25 MG TAB PO SCH (21:14)
[2024-06-21] MEDS: CEROVITE ADV FORMULA TAB PO SCH (21:14)
[2024-06-21] MEDS: ACETAMINOPHEN 325 MG TAB PO PRN (21:15)
[2024-06-22 02:14] LABS: ANTI-Xa, UFH(UnfractionatedHep 0.24 IU/ml (0.3-0.7)
[2024-06-22] MEDS: CALCIUM 600MG + VIT D 400 IU TAB PO SCH (08:07)
--- NOTE | 2024-06-22 08:30 | Hospitalist Progress Note ---
Date of Service June 22, 2024 Assessment & Plan (1) Acute kidney injury: Plan: likely secondary to UTI, and renal hypoperfusion with hypotension and recent poor oral intake possibly early sepsis - tachycardic on admission 100-110, hypotensive - afebrile, mild leukocytosis resolved, lactate 3.0 on admission - Cr increased from 0.99 to 1.69, BUN elevated to 45 indicating pre-renal cause - FENa 0.4% = prerenal cause - UA suspicious for UTI although asymptomatic; turbid, > 50 WBC, 4+ bacteria with > 20 hyaline casts - no previous urine cultures - given 1 L IV NS fluid on admission - post void bladder scan 63 mL - BMP recheck at 1500 showed worsening kidney function and hyponatremia, Na 129 - 1 L LR gentle resuscitation overnight 06/22 - Avoid nephrotoxic agents - continue to hold lisinopril - continue to promote oral hydration - urine cultures pending - will cover UTI with ceftriaxone (2) Hyponatremia: Plan: With ALDO, UTI, and hypovolemic - clinically appeared dry on exam, with poor oral intake - Cr 0.99 -> 1.88, BUN 56, Na 129 - worsening kidney function throughout day 06/22; 1 L LR gentle resuscitation - urine osmol and serum osmol pending, urine Na 44 (3) Fall: Plan: Appears to be back to her baseline at this time Suspected secondary to ongoing right knee effusion and pain from OA - Mild graze injury to right shoulder - No bone injury from fall - XR hip/pelvis, chest, shoulder, knee negative - CT head and cervical spine negative for acute findings - UA suspicious for UTI - Right knee pain - continue prn Tylenol and ice - PT/OT consulted - referral [facility] (4) Elevated troponin: Plan: - trended downward - Suspect secondary to demand ischemia due to current infection - No chest pain or shortness of breath to suggest ACS -ECG without ischemic changes - TTE showed EF 60-65%, borderline LVH (5) New onset atrial fibrillation: Plan: - EKG on admission initially read as new onset A fib with RVR, rate 104 -> in sinus rhythm since placed on telemetry 06/21 with frequent PACs - With cardiology taking a 2nd read on her originally EKG, determined patient was not in a fib on admission but rather sinus tach with PACs - Anticoagulated with IV heparin, since discontinued - TSH WNL - metoprolol 25mg PO BID discontinued -sinus tach resolved with IVF hydration (6) Benign essential hypertension: Plan: Stable - held antihypertensives on admission due to metoprolol use; since discontinued - patient hypotensive since arrival and with ALDO - continue to hold lisinopril and amlodipine (7) Diabetes mellitus with microalbuminuria: Plan: - Low HbA1C 5.8 in January - Controlled on metformin at home (but on hold here) therefore no need to cover with insulin, BSG ACHS or diabetic diet (8) Anemia: Plan: Appears chronic - Hgb 10.5, appears to be consistently low at baseline - history of lung cancer - appears hypochromic microcytic - Iron panel, B12, and folate with AM labs (9) Primary cancer of left upper lobe of lung: Plan: - Follows with oncology and pulmonary - non-small cell carcinoma, consistent with adenocarcinoma, of left upper lobe - treated with radiation - Suspicious area of right lower lobe, appointment 07/18 with pulm to discuss possible bronchoscopy Plan VTE Prophylaxis - IV heparin Diet - regular Disposition - med/tele Once ALDO improved and urine culture resulted, will be medically cleared for discharge to rehab facility. [facility]erral [facility], possible SNF with rehab placement after family looks into more facilities. Admission and Anticipated Discharge Date Admission Date: June 21, 2024 Supervising Physician Co-Signing Physician Notes PA Supervision Note: I personally saw and examined the patient. I verified all hendricks points and agree with KYLE Burkett with the following exceptions and/or additions: S-Pt feeling very tired, not taking much po lately. Does feel thirsty and asks for a diet coke. Tele with sinus with PACs O- Vitals reviewed Gen: [AAOx3, NAD] HEENT: [anicteric sclerae, EOMI] CV: [RRR , frequent ectopy, no mgr nl S1S2] Pulm: [CTAB no wcr] Abd: [+BS soft NT ND no masses or hernias] Ext: [no edema] Skin: [no rashes, warm/dry] Neuro: [full strength throughout] CBC, BMP reviewed A/P-88 yo female here with UTI, sepsis, ALDO. Sinus tach rather than rapid afib Give IVFs x 1 L given nationwide IVF shortage, encourage increased po fluids, watch UOP FOllow BMP Started ceftriaxone for UTI Subjective Patient seen at bedside with family. She is doing well, with no acute events overnight. She stated that her knee has been hurting for about a week. She has been icing it. She shared that she slipped out of bed yesterday resulting in her fall, secondary to the knee pain. Her family reported that she has not been eating or drinking as much this past week. She denies dysuria and hematuria. Her family stated that the lung cancer on the left side was treated with radiation a few months ago and she it to have an appointment with pulmonology on 07/18 to discuss bronchoscopy for the new right nodule found, although surgical management is unlikely. Patient denies fever, chills, headache, dizziness, lightheadedness, dyspnea, chest pain, abdominal pain, nausea, vomiting, dysuria, hematuria, edema, numbness, tingling. Tele: sinus tachycardia with occasional PAC and PVC, rate in 60s Review of Systems Review of Systems: see HPI Physical Exam Physical Exam: The patient is awake, alert and oriented 3, well developed and well nourished, normocephalic and atraumatic, in no acute distress. Non-toxic appearing. HEENT- EOMI, mucous membranes dry. Hearing grossly intact. Heart-normal S1 and S2. No murmurs, rubs or gallops. Lungs-clear bilaterally, no respiratory distress, no accessory muscle use. Abdomen-normal bowel sounds and soft. No ascites noted. Non-tender. Extremities- no clubbing, cyanosis. Right knee with effusion, not erythematous or warm to touch. Rheumatologic-normal range of motion. Psychiatric-normal affect. Results & Data Results & Data Vital Signs (Past 12 Hours) Vital Signs Temp Pulse Pulse Resp BP BP Pulse Ox 06/22/24 07:45 36.6 C 86 16 125/65 94 06/22/24 07:10 66 06/22/24 04:00 36.6 C 90 18 110/70 97 06/22/24 01:00 06/21/24 23:00 37.0 C 71 18 111/68 96 06/21/24 21:58 70 O2 Del Method 06/22/24 07:45 Room Air 06/22/24 07:10 06/22/24 04:00 Room Air 06/22/24 01:00 Room Air 06/21/24 23:00 Room Air 06/21/24 21:58 Laboratory Results Reviewed CBC, BMP, TSH, troponin, UA, urine NA, and urine Cr PG Care Time/CCT Total # of Minutes Spent Total Time Spent with Patient: Total time spent is greater than 50% in coordination of care (as documented) at patient's floor/unit and/or counseling patient: Coding Level of Care Code None Diagnoses Acute kidney injury N17.9 Hyponatremia E87.1 Fall W19.XXXA Elevated troponin R79.89 New onset atrial fibrillation I48.91 Benign essential hypertension I10 Diabetes mellitus with microalbuminuria E11.29; R80.9 Anemia D64.9 Primary cancer of left upper lobe of lung C34.12
[2024-06-22 08:45] LABS: Appearance Urine Turbid (Clear); Bacteria Urine Automated 4+ (None Seen); Bilirubin Urine Negative (Negative); Blood Urine Negative (Negative); Cast Urine Automated >20 /lpf (0-2); Color Urine Yellow; Glucose Urine UA Negative (Negative); Ketones Urine Trace (Negative); Leukocyte Esterase Urine 2+ (Negative); Nitrite Urine Negative (Negative); Protein Urine 1+ (Negative); RBC Urine Automated 0-2 /hpf (0-2); Specific Gravity Urine 1.019 (1.000-1.030); Urobilinogen Urine Negative (Negative); WBC Urine Automated >50 /hpf (0-5)
[2024-06-22 08:50] LABS: Basophils # (auto) 0.02 K/uL (0.00-0.20); Basophils % (auto) 0.2 %; Eosinophils # (auto) 0.04 K/uL (0.00-0.50); Eosinophils % (auto) 0.4 %; Hematocrit (blood only) 30.4 % (37.0-47.0); Hemoglobin 9.9 g/dl (12.0-16.0); Immature Granulocytes # (auto) 0.03 K/uL (0.01-0.20); Immature Granulocytes % (auto) 0.3 %; Lymphocytes % (auto) 12.2 %; Mean Corpuscular Hemoglobin 27.3 pg (25.0-34.0); Mean Corpuscular Hgb Conc 32.6 g/dL (32.0-36.0); Mean Platelet Volume 9.4 fL (9.4-12.4); Monocytes % (auto) 8.2 %; Neutrophils # (auto) 7.71 K/uL (1.40-6.50); Neutrophils % (auto) 78.7 %; Platelet Count 423 K/uL (130-400); RDW Coefficient of Variation 16.9 % (11.5-14.5); Red Blood Count 3.62 M/uL (4.20-5.40)
[2024-06-22 09:04] LABS: BUN Creatinine Ratio 26.6 (10-20); Calcium 9.3 mg/dl (8.6-10.3); Creatinine Clr Calc Pharmacy 20.1 ml/min; Magnesium 1.7 mg/dl (1.7-2.4); Potassium 3.7 mmol/L (3.5-5.1)
[2024-06-22 09:15] LABS: Thyroid Stimulating Hormone 3.312 uIu/ml (0.300-4.500)
[2024-06-22] MEDS: cefTRIAXone SODIUM 1,000 MG/50 ML BAG IV SCH (13:54)
[2024-06-22 14:01] LABS: Creatinine Urine Random 138.7 mg/dl
--- NOTE | 2024-06-22 14:52 | XCELERA ---
[id number]
[2024-06-22 16:41] LABS: BUN Creatinine Ratio 29.8 (10-20); Calcium 8.8 mg/dl (8.6-10.3); Potassium 3.8 mmol/L (3.5-5.1)
[2024-06-22] MEDS: LACTATED RINGER'S 1,000 ML IV ONE (17:31)
--- NOTE | 2024-06-22 17:56 | Billing Data ---
Date of Service June 22, 2024 Coding Level of Care Code 93959 SUB INP/OBS CARE
[2024-06-23 06:57] LABS: Hematocrit (blood only) 26.5 % (37.0-47.0); Hemoglobin 8.9 g/dl (12.0-16.0); Mean Corpuscular Hemoglobin 27.8 pg (25.0-34.0); Mean Corpuscular Hgb Conc 33.6 g/dL (32.0-36.0); Mean Corpuscular Volume 82.8 fL (80.0-100.0); Mean Platelet Volume 9.6 fL (9.4-12.4); Platelet Count 383 K/uL (130-400); RDW Coefficient of Variation 16.2 % (11.5-14.5); White Blood Count 8.46 K/ul (4.8-10.8)
[2024-06-23 07:16] LABS: BUN Creatinine Ratio 34.5 (10-20); Calcium 8.5 mg/dl (8.6-10.3); Potassium 3.9 mmol/L (3.5-5.1)
[2024-06-23 07:35] LABS: Ferritin 91.1 ng/ml (8-388)
[2024-06-23 07:42] LABS: Folate (Folic Acid),Ser orPlas 21.26 ng/ml (>5.38)
--- NOTE | 2024-06-23 09:12 | Hospitalist Progress Note ---
Date of Service June 23, 2024 Assessment & Plan (1) Acute kidney injury: Plan: improved with 1 L IV fluid resuscitation 06/22 likely secondary to UTI, and renal hypoperfusion with hypotension and recent poor oral intake possibly early sepsis - tachycardic on admission 100-110, hypotensive - since resolved with IVFs and starting metoprolol--> now has returned - afebrile, mild leukocytosis resolved, lactate 3.0 on admission - Cr increased to 1.88, BUN elevated to 45 indicating pre-renal cause 06/22 -> Cr improved 1.16 on 06/23 after IV fluids - FENa 0.4% = prerenal cause - UA suspicious for UTI although asymptomatic; turbid, > 50 WBC, 4+ bacteria with > 20 hyaline casts - no previous urine cultures - post void bladder scan 63 mL - Avoid nephrotoxic agents - continue to hold lisinopril and metformin - continue to promote oral hydration - urine cultures pending - will cover UTI with ceftriaxone (2) NSVT (nonsustained ventricular tachycardia): Plan: - episode of 8 beat V tach 06/23 -ECHO here with preserved EF - restarted on Metoprolol 25 mg BID - continue to monitor on tele (3) Hyponatremia: Plan: resolved with IV fluid resuscitation 06/22 With ALDO, UTI, and hypovolemic - clinically appeared dry on exam, with poor oral intake - Na 129 -> 134 - worsening kidney function throughout day 06/22; 1 L LR gentle resuscitation - urine osmol 476, serum osmol 288, urine Na 44 (4) Fall: Plan: Appears to be back to her baseline at this time Suspected secondary to ongoing right knee effusion and pain from OA - Mild graze injury to right shoulder - No bone injury from fall - XR hip/pelvis, chest, shoulder, knee negative - CT head and cervical spine negative for acute findings - UA suspicious for UTI - Right knee pain - continue prn Tylenol and ice - PT/OT consulted - [facility] (5) Elevated troponin: Plan: stable; trended downward on admission Suspect secondary to demand ischemia due to current infection - No chest pain or shortness of breath to suggest ACS - ECG without ischemic changes - TTE showed EF 60-65%, borderline LVH (6) Anemia: Plan: Appears chronic - Hgb 10.5, appears to be consistently low at baseline - history of lung cancer - appears hypochromic microcytic - Iron panel shows anemia of chronic disease, ferritin WNL but transferrin sat mildly low at 10% - will start on po iron supplement - Colace prn with start of iron - B12 low - 1000 mg IM 06/23, will continue on 1000 mg PO daily - folate WNL, TSH normal (7) New onset atrial fibrillation: Plan: - EKG on admission initially read as new onset A fib with RVR, rate 104 -> in sinus rhythm since placed on telemetry 06/21 with frequent PACs - With cardiology taking a 2nd read on her originally EKG, determined patient was not in a fib on admission but rather sinus tach with PACs - Anticoagulated with IV heparin, since discontinued - TSH WNL - metoprolol 25mg PO BID discontinued 06/22; although restarted for NVST and HTN - sinus tach resolved with IVF hydration (8) Benign essential hypertension: Plan: Stable - held antihypertensives on admission due to metoprolol use; which was discontinued 06/22 - metoprolol resumed 06/23 due to NVST and hypertension - continue to hold lisinopril with ALDO - will likely discontinue amlodipine on discharge with switch to metoprolol (9) Diabetes mellitus with microalbuminuria: Plan: - Low HbA1C 5.8 in January - Controlled on metformin at home (but on hold here) therefore no need to cover with insulin, BSG ACHS or diabetic diet (10) Primary cancer of left upper lobe of lung: Plan: - Follows with oncology and pulmonary - non-small cell carcinoma, consistent with adenocarcinoma, of left upper lobe - treated with radiation - Suspicious area of right lower lobe, appointment 07/18 with pulm to discuss possible bronchoscopy Plan VTE Prophylaxis - IV heparin now stopped--> start Lovenox SQ Diet - regular Disposition - med/tele Once ALDO improved and urine culture resulted, will be medically cleared for discharge to rehab facility. [facility], with Matt at [facility] for back up. Admission and Anticipated Discharge Date Admission Date: June 21, 2024 Supervising Physician Co-Signing Physician Notes KYLE Supervision Note: I personally saw and examined the patient. I verified all hendricks points and agree with KYLE Burkett with the following exceptions and/or additions: S-Pt feeling very tired, not taking much po lately. Does feel thirsty and asks for a diet coke. Tele with sinus with PACs O- Vitals reviewed Gen: [AAOx3, NAD] HEENT: [anicteric sclerae, EOMI] CV: [RRR , frequent ectopy, no mgr nl S1S2] Pulm: [CTAB no wcr] Abd: [+BS soft NT ND no masses or hernias] Ext: [no edema] Skin: [no rashes, warm/dry] Neuro: [full strength throughout] CBC, BMP reviewed A/P-88 yo female here with UTI, sepsis, ALDO. Sinus tach rather than rapid afib Give IVFs x 1 L given nationwide IVF shortage, encourage increased po fluids, watch UOP FOllow BMP Started ceftriaxone for UTI Subjective Patient seen at bedside with family. She is doing well, with no acute events overnight. She is doing well other than her knee pain, which has been consistent for the past week. Patient denies fever, chills, headache, dizziness, lightheadedness, dyspnea, chest pain, abdominal pain, nausea, vomiting, dysuria, hematuria, edema, numbness, tingling. Tele: 8 beats of V tach 10/10 when patient was using bedpan, otherwise sinus tachycardia, HR 90-110 Review of Systems Review of Systems: see HPI Physical Exam Physical Exam: The patient is awake, alert and oriented 3, well developed and well nourished, normocephalic and atraumatic, in no acute distress. Non-toxic appearing. HEENT- EOMI, mucous membranes dry. Hearing grossly intact. Heart-normal S1 and S2. No murmurs, rubs or gallops. Lungs-clear bilaterally, no respiratory distress, no accessory muscle use. Abdomen-normal bowel sounds and soft. No ascites noted. Non-tender. Extremities- no clubbing, cyanosis. Right knee with effusion, not erythematous or warm to touch. Rheumatologic-normal range of motion. Psychiatric-normal affect. Results & Data Results & Data Vital Signs (Past 12 Hours) Vital Signs Temp Pulse Pulse Resp BP Pulse Ox O2 Del Method 06/23/24 07:24 36.8 C 82 18 154/68 H 96 Room Air 06/23/24 07:07 84 06/23/24 03:42 36.9 C 84 16 117/64 95 Room Air 06/22/24 23:13 36.8 C 77 18 144/73 H 95 Room Air 06/22/24 21:55 80 06/22/24 21:46 Room Air Laboratory Results reviewed CBC, BMP, Iron panel, ferritin, B12, folate PG Care Time/CCT Total # of Minutes Spent Total Time Spent with Patient: Total time spent is greater than 50% in coordination of care (as documented) at patient's floor/unit and/or counseling patient: C[place] [address] SUB INP/OBS CARE 3/50MIN Patient Type Established Medical Decision Making High Complexity Diagnoses Acute kidney injury N17.9 NSVT (nonsustained ventricular tachycardia) I47.29 Hyponatremia E87.1 Fall W19.XXXA Elevated troponin R79.89 Anemia D64.9 New onset atrial fibrillation I48.91 Benign essential hypertension I10 Diabetes mellitus with microalbuminuria E11.29; R80.9 Primary cancer of left upper lobe of lung C34.12 Time Spent (min) 50
[2024-06-23] MEDS: METOPROLOL TARTRATE 25 MG TAB PO SCH (09:47)
[2024-06-23] MEDS: CYANOCOBALAMIN 1000 MCG/ML VIAL IM ONE (09:48)
[2024-06-23] MEDS: FERROUS SULFATE 325 MG TAB PO SCH (09:48)
[2024-06-23] MEDS: ENOXAPARIN INJ 40 MG/0.4 ML SYR SQ SCH (20:21)
[2024-06-24 06:12] LABS: Hematocrit (blood only) 28.9 % (37.0-47.0); Mean Corpuscular Hemoglobin 28.4 pg (25.0-34.0); Mean Corpuscular Hgb Conc 34.6 g/dL (32.0-36.0); Mean Corpuscular Volume 82.1 fL (80.0-100.0); Mean Platelet Volume 9.9 fL (9.4-12.4); Platelet Count 434 K/uL (130-400); RDW Coefficient of Variation 16.6 % (11.5-14.5); Red Blood Count 3.52 M/uL (4.20-5.40); White Blood Count 8.41 K/ul (4.8-10.8)
[2024-06-24 06:41] LABS: BUN Creatinine Ratio 24.7 (10-20); Calcium 9.1 mg/dl (8.6-10.3); Creatinine Clr Calc Pharmacy 36.8 ml/min; Potassium 4.1 mmol/L (3.5-5.1)
[2024-06-24] MEDS: CYANOCOBALAMIN (B-12) 500 MCG TABLET PO SCH (09:11)
[2024-06-24] MEDS: POLYETHYLENE (MIRALAX) 17 GM PACK PO ONE (12:13)
--- NOTE | 2024-06-24 13:04 | Hospitalist Progress Note ---
Date of Service June 24, 2024 Assessment & Plan (1) Urinary tract infection: Plan: Asymptomatic but was weak and fell no previous urine cultures/ history of UTI possibly early sepsis on admission; resolved - sinus tachycardic with PACs on admission 100-110, hypotensive - resolved with IVFs and starting metoprolol - afebrile, mild leukocytosis resolved, lactate 3.0 on admission - UA suspicious for UTI; turbid, > 50 WBC, 4+ bacteria with > 20 hyaline casts - Prelim urine cultures showed gram + cocci; final cultures pending - Continue with Ceftriaxone (2) PAF (paroxysmal atrial fibrillation): Plan: - EKG on admission initially read as new onset A fib with RVR, rate 104 -> in sinus rhythm since placed on telemetry 06/21 with frequent PACs - With cardiology taking a 2nd read on her original EKG, determined patient was not in a fib on admission but rather sinus tach with PACs - Telemetry 06/24 showed a fib/a flutter 0329 with convert back to sinus rhythm 0842 - Anticoagulated with IV heparin on admission, started on 2.5 mg Eliquis BID after discussion with patient and family about risks vs benefits 06/24 - [id number] score 5 = 7.2% stroke risk per year - HAS-BLED score 2 = moderate risk for major bleeding - with patient fall likely due to acute infection and referral to PT, fall risk is relatively low - TSH WNL - cardiology consulted; confirmed a fib - continue metoprolol 25mg PO BID - Sinus tachycardia well controlled 06/24 - Continue to monitor on Telemetry (3) Acute kidney injury: Plan: resolved with 1 L IV fluid resuscitation 06/22 likely secondary to UTI, and renal hypoperfusion with hypotension and recent poor oral intake - 06/22: Cr increased to 1.88, BUN elevated to 45 indicating pre-renal cause 06/22 -> Cr improved 1.16 on 06/23 after IV fluids - 06/24: Cr 0.93, BUN 23 - FENa 0.4% = prerenal cause - post void bladder scan 63 mL - Avoid nephrotoxic agents - continue to hold lisinopril and metformin, BP and glucose stable - continue to promote oral hydration - see UTI workup (4) Hyponatremia: Plan: improved with IV fluid resuscitation 06/22 With ALDO, UTI, and hypovolemic - Na 129 -> 134 - worsening kidney function throughout day 06/22 with poor oral intake; 1 L LR gentle resuscitation - urine osmol 476, serum osmol 288, urine Na 44 - continue to monitor on daily BMP (5) NSVT (nonsustained ventricular tachycardia): Plan: Stable episode of 8 beat V tach 06/23 - Echo here with preserved EF - restarted on Metoprolol 25 mg BID 06/23 without reoccurrence of V Tach - continue to monitor on tele (6) Fall: Plan: Appears to be back to her baseline at this time Suspected secondary to ongoing right knee effusion and infection - Mild graze injury to right shoulder - No bone injury from fall - XR hip/pelvis, chest, shoulder, knee negative - CT head and cervical spine negative for acute findings - UA suspicious for UTI - Right knee pain - continue prn Tylenol and ice - PT/OT consulted - [facility] denied, [facility] for back up (7) Elevated troponin: Plan: stable; trended downward on admission Suspect secondary to demand ischemia due to current infection - No chest pain or shortness of breath to suggest ACS - ECG without ischemic changes - TTE showed EF 60-65%, borderline LVH (8) Anemia: Plan: Appears chronic - Hgb 10.5, appears to be consistently low at baseline - history of lung cancer - appears hypochromic microcytic - Iron panel shows anemia of chronic disease, ferritin WNL but transferrin sat mildly low at 10% - will start on po iron supplement - Colace and Miralax prn with start of iron - B12 low - 1000 mg IM 06/23, will continue on 1000 mg PO daily - folate WNL, TSH normal (9) B12 deficiency anemia: Plan: see above (10) Benign essential hypertension: Plan: Stable - held antihypertensives on admission due to metoprolol use; which was discontinued 06/22 - metoprolol resumed 06/23 due to NVST, hypertension, and A fib (06/24) - continue to hold lisinopril with recent ALDO - will likely discontinue amlodipine on discharge with switch to metoprolol -can titrate up metoprolol dose if need improved BP control (11) Diabetes mellitus with microalbuminuria: Plan: - Low HbA1C 5.8 in January - Controlled on metformin at home (but on hold here) therefore no need to cover with insulin, BSG ACHS or diabetic diet (12) Primary cancer of left upper lobe of lung: Plan: - Follows with oncology and pulmonary - non-small cell carcinoma, consistent with adenocarcinoma, of left upper lobe - treated with radiation - Suspicious area of right lower lobe, appointment 07/18 with pulm to discuss possible bronchoscopy Plan VTE Prophylaxis - Eliquis 2.5 mg BID Diet - regular Disposition - med/tele Once urine culture resulted, will be medically cleared for discharge to rehab facility. [facility] denied, referral [facility] at [facility] for back up. Admission and Anticipated Discharge Date Admission Date: June 21, 2024 Supervising Physician Co-Signing Physician Notes PA Supervision Note: I did not personally see or examine the patient today, but I verified all hendricks points of KYLE Burkett's assessment and plan with the following exceptions/additions: urine culture returned later in the day with Enterococcus--> discontinued ceftriaxone and started amoxicillin 500 Mg p.o. 3 times daily-would complete 7- day course Subjective Patient seen at bedside with family. She is doing well, with no acute events overnight. She is doing well other than her knee pain, which has been consistent for the past week. She stated that she has felt constipated, with difficulty having bowel movements. Patient denies fever, chills, headache, dizziness, lightheadedness, dyspnea, chest pain, abdominal pain, nausea, vomiting, dysuria, hematuria, edema, numbness, tingling. Patient's son updated at bedside. [facility] with [facility], denied patient for inpatient rehab. Tele: Afib/Aflutter at 0329, HR 100-140. Converted back into sinus 0824, occasional PAC and PVC, with HR 65-90. Review of Systems Review of Systems: see HPI Physical Exam Physical Exam: The patient is awake, alert and oriented 3, well developed and well nourished, normocephalic and atraumatic, in no acute distress. Non-toxic appearing. HEENT- EOMI, mucous membranes dry. Hearing grossly intact. Heart-normal S1 and S2. No murmurs, rubs or gallops. Lungs-clear bilaterally, no respiratory distress, no accessory muscle use. Abdomen-normal bowel sounds and soft. No ascites noted. Non-tender. Extremities- no clubbing, cyanosis. Right knee with effusion, not erythematous or warm to touch. Rheumatologic-normal range of motion. Psychiatric-normal affect. Results & Data Results & Data Vital Signs (Past 12 Hours) Vital Signs Temp Pulse Resp BP BP Pulse Ox O2 Del Method 06/24/24 11:46 36.6 C 65 18 154/75 H 97 Room Air 06/24/24 09:15 Room Air 06/24/24 08:03 36.6 C 91 H 17 163/76 H 97 Room Air 06/24/24 02:42 36.8 C 75 18 167/65 H 97 Room Air Laboratory Results reviewed CBC, BMP PG Care Time/CCT Total # of Minutes Spent Total Time Spent with Patient: Total time spent is greater than 50% in coordination of care (as documented) at patient's floor/unit and/or counseling patient: Coding [place] [address] SUB INP/OBS CARE 3/50MIN Patient Type Established Medical Decision Making High Complexity Diagnoses Urinary tract infection N39.0 PAF (paroxysmal atrial fibrillation) I48.0 Acute kidney injury N17.9 Hyponatremia E87.1 NSVT (nonsustained ventricular tachycardia) I47.29 Fall W19.XXXA Elevated troponin R79.89 Anemia D64.9 B12 deficiency anemia D51.9 Benign essential hypertension I10 Diabetes mellitus with microalbuminuria E11.29; R80.9 Primary cancer of left upper lobe of lung C34.12 Time Spent (min) 60 Comment Updated family and [facility] with [facility]
[2024-06-24] MEDS ORDERED: APIXABAN 2.5 MG TAB PO SCH (13:05)
--- NOTE | 2024-06-24 13:36 | Cardiology Consultation ---
Date of Consultation June 24, 2024 Assessment & Plan (1) PAF (paroxysmal atrial fibrillation): -The patient experienced a 6-hour episode of atrial fibrillation today. -Agree with metoprolol to tartrate. -Long-term anticoagulation is recommended, but may be of elevated risk realizing her fall potential. -The family will discuss this further with the patient. -Hospitalist team will also address the issue with the family. (2) Benign essential hypertension: -Adequate control on current regimen. History of Present Illness Attending Physician: Sophia Bennett MD History of Present Illness Mrs. Lowe is an 88-year-old female admitted on June 21 after being found on the floor by her son. She developed an episode of atrial fibrillation last evening, therefore, this consultation was ordered. The patient was in usual state of health until the day of presentation. Her son went to visit her as she was not answering her telephone. He found her on the floor with a lamp knocked off the end table. The patient explained that she is simply slid out of bed onto her buttocks. She did not hit her head. She was brought to the emergency room for further evaluation. Initial EKG was interpreted as atrial fibrillation with a rapid ventricular response. She was started on metoprolol to tartrate and intravenous heparin. However, reinterpretation of the original EKG noted sinus rhythm with frequent ectopic beats. Heparin therapy was discontinued at that time. At approximately 3 AM today, the patient developed atrial fibrillation that spontaneously converted to sinus rhythm at approximately 9:30 AM. Ventricular response was approximately 100 bpm. The patient was asymptomatic. Long discussion was held with the patient and her son, Chaparro, regarding the treatment of paroxysmal atrial fibrillation. Specifically, we have discussed the benefits and risks of long-term anticoagulation. Currently, patient is resting comfortably in bed and without complaints. Past medical and surgical history 1. Hypertension 2. Diabetes mellitus 3. Diabetic nephropathy 4. Iron deficiency anemia 5. Diverticulosis 6. Pulmonary nodules 7. Lung carcinoma 8. Colon carcinoma 9. DJD 10. Colon resection 11. Intraocular lens implants 12. D&C Social history , lives alone Quit tobacco use at age 25 No alcohol Family history Noncontributory Review of systems A 10 point review of system was undertaken and negative except that scribed above. Allergies Allergy/AdvReac Type Severity Reaction Status Date / Time No Known Allergies Allergy Unknown Verified 06/21/24 13:14 Home Medications Medication Instructions Recorded Confirmed Type multivitamin 1 tab PO QPM 06/23/19 06/21/24 History blood-glucose meter (OneTouch #1 ea 06/25/20 01/12/24 Rx Ultra2 Meter) aspirin 81 mg tablet,delayed 81 mg PO QAM 09/30/22 06/21/24 History release vit C 250 mg-vit E 90 mg-zinc 40 1 tab PO BID 09/30/22 06/21/24 History mg-copper 1 [id number] capsule (PreserVision AREDS-2) calcium 600 mg (as carbonate)-vit 1 tab PO QAM 11/18/22 06/21/24 History D3 10 mcg (400 unit) chewable tablet (Calcium 600 with Vitamin D3) amlodipine 5 mg tablet 5 mg PO DAILY #90 tabs 12/24/23 06/21/24 Rx lisinopril 40 mg tablet 40 mg PO DAILY #90 tabs 12/24/23 06/21/24 Rx blood sugar diagnostic #200 ea 01/12/24 01/12/24 Rx blood-glucose meter (OneTouch #1 ea 01/12/24 01/12/24 Rx Ultra2 Meter) lancets 30 gauge #100 ea 01/12/24 01/12/24 Rx metformin 500 mg tablet 500 mg PO BID 06/21/24 06/21/24 History Patient History Medical History Lung cancer History of colon cancer H/O nicotine dependence Multiple lung nodules on CT POLST (Physician Orders for Life-Sustaining Treatment) Diabetes mellitus with microalbuminuria Diverticulosis of colon (without mention of hemorrhage) Benign essential hypertension Macular degeneration Microalbuminuric diabetic nephropathy Osteoarthritis of knee Osteopenia Surgical History History of bronchoscopy (12/10/22) Hx of cataract extraction Hx of dilation and curettage S/P colon resection History of colectomy Family History Sister Breast cancer Father No problems noted. Mother No problems noted. Sister No problems noted. Brother No problems noted. Son No problems noted. Daughter No problems noted. Other No family history of adverse response to anesthesia Denies family history of Ovarian cancer Prostate cancer Myocardial infarction Colorectal cancer Social History Smoking Status: Former smoker Tobacco Type: Cigarettes Age Started Using Tobacco: 21; Age Quit Using Tobacco: 25; packs per day: 1; Cigarettes Per Day: quit age 25; Second Hand Exposure: No; Do You Dip or Chew Tobacco: No; Tobacco Cessation Education Requested by Patient: No Hx Alcohol Use: No Hx Substance Use: No Preferred Language: [place] Irish Communication Ability: Effective Visual Impairment: Limited Hearing Ability: Normal Bulb Brander Required: No Beliefs That Will Affect Care: None marital status: / Current Living Situation: Alone current occupational status: 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 HEENT exam is negative. Neck reveals normal carotid upstrokes without bruits. Jugular venous pressure is flat at 90. There is no thyromegaly. Cardiovascular exam reveals a regular rhythm with distant heart sounds. No obvious murmurs. Lungs are clear without rales, rhonchi, or wheezes. Abdomen is soft without bruits. Extremities reveal intact radial artery pulses bilaterally. There is no peripheral edema. Results & Data Vital Signs (Past 12 Hours) Vital Signs Temp Pulse Resp BP BP Pulse Ox O2 Del Method 06/24/24 11:46 36.6 C 65 18 154/75 H 97 Room Air 06/24/24 09:15 Room Air 06/24/24 08:03 36.6 C 91 H 17 163/76 H 97 Room Air 06/24/24 02:42 36.8 C 75 18 167/65 H 97 Room Air PG Care Time/CCT Total # of Minutes Spent Total Time Spent with Patient: Total time spent is greater than 50% in coordination of care (as documented) at patient's floor/unit and/or counseling patient: Coding Level of Care Code 15826 INT INP/OBS CARE 3MIN Diagnoses PAF (paroxysmal atrial fibrillation) I48.0 Benign essential hypertension I10
--- NOTE | 2024-06-24 14:40 | Electrocardiogram Report ---
Test Reason : Blood Pressure : */* mmHG Vent. Rate : 108 BPM Atrial Rate : 300 BPM P-R Int : * ms QRS Dur : 104 ms QT Int : 328 ms P-R-T Axes : * -54 98 degrees QTcB Int : 439 ms Atrial fibrillation with rapid ventricular response with premature ventricular or aberrantly conducte d complexes Left axis deviation Septal infarct , age undetermined Abnormal ECG When compared with ECG of 21-Jun-2024 10:47, Atrial fibrillation is now Present No significant change was found Confirmed by Collin Ross ([id number]) on 06/24/2024 2:40:19 PM Referred By: REFERRED SELF Confirmed By: Collin Ross
[2024-06-24] MEDS ORDERED: ENOXAPARIN INJ 30 MG/0.3 ML SYR SQ SCH (21:00)
[2024-06-24] MEDS: AMOXICILLIN 875 MG TAB PO SCH (21:19)
[2024-06-24] MEDS: APIXABAN 2.5 MG TAB PO SCH (21:21)
[2024-06-25] MEDS ORDERED: POLYETHYLENE (MIRALAX) 17 GM PACK PO PRN (08:00)
[2024-06-25 08:02] LABS: Basophils # (auto) 0.02 K/uL (0.00-0.20); Basophils % (auto) 0.3 %; Eosinophils # (auto) 0.14 K/uL (0.00-0.50); Eosinophils % (auto) 2.2 %; Hematocrit (blood only) 28.5 % (37.0-47.0); Hemoglobin 9.8 g/dl (12.0-16.0); Immature Granulocytes # (auto) 0.05 K/uL (0.01-0.20); Immature Granulocytes % (auto) 0.8 %; Lymphocytes # (auto) 1.17 K/uL (1.20-3.40); Lymphocytes % (auto) 18.7 %; Mean Corpuscular Hemoglobin 28.3 pg (25.0-34.0); Mean Corpuscular Hgb Conc 34.4 g/dL (32.0-36.0); Mean Corpuscular Volume 82.4 fL (80.0-100.0); Mean Platelet Volume 9.4 fL (9.4-12.4); Monocytes # (auto) 0.73 K/uL (0.11-0.59); Monocytes % (auto) 11.7 %; Neutrophils # (auto) 4.15 K/uL (1.40-6.50); Neutrophils % (auto) 66.3 %; Platelet Count 405 K/uL (130-400); RDW Coefficient of Variation 16.3 % (11.5-14.5); RDW Standard Deviation 49.1 fL (36.4-46.3); Red Blood Count 3.46 M/uL (4.20-5.40); White Blood Count 6.26 K/ul (4.8-10.8)
[2024-06-25] MEDS: DOCUSATE SODIUM 100 MG CAP PO PRN (08:14)
[2024-06-25 08:19] LABS: BUN Creatinine Ratio 27.3 (10-20); Calcium 8.8 mg/dl (8.6-10.3); Creatinine Clr Calc Pharmacy 44.1 ml/min; Potassium 4.1 mmol/L (3.5-5.1)
--- NOTE | 2024-06-25 08:48 | Hospitalist Progress Note ---
Date of Service June 25, 2024 Assessment & Plan (1) Urinary tract infection: Plan: Asymptomatic but was weak and fell no previous urine cultures/ history of UTI possibly early sepsis on admission; resolved - sinus tachycardic with PACs on admission 100-110, hypotensive - resolved with IVFs and starting metoprolol - afebrile, mild leukocytosis resolved, lactate 3.0 on admission - UA suspicious for UTI; turbid, > 50 WBC, 4+ bacteria with > 20 hyaline casts - Urine cultures showed Enterococcus -> discontinued ceftriaxone and started amoxicillin 500 Mg p.o. 2 times daily (started 06/24 PM) to complete 7-day course (2) Acute kidney injury: Plan: resolved with 1 L IV fluid resuscitation 06/22 likely secondary to UTI, and renal hypoperfusion with hypotension and recent poor oral intake - 06/22: Cr increased to 1.88, BUN elevated to 45 indicating pre-renal cause 06/22 -> Cr improved 1.16 on 06/23 after IV fluids - 06/25: Cr 0.77, BUN 21 - FENa 0.4% = prerenal cause - post void bladder scan 63 mL - resume lisinopril 06/25 due to increased BP and resolved ALDO - continue to promote oral hydration - see UTI workup (3) Hyponatremia: Plan: improved with IV fluid resuscitation 06/22 With ALDO, UTI, and hypovolemic - Na 129 -> 132 - worsening kidney function throughout day 06/22 with poor oral intake; 1 L LR gentle resuscitation - urine osmol 476, serum osmol 288, urine Na 44 - continue to monitor on daily BMP and continue to promote oral hydration (4) PAF (paroxysmal atrial fibrillation): Plan: - EKG on admission initially read as new onset A fib with RVR, rate 104 -> in sinus rhythm since placed on telemetry 06/21 with frequent PACs - With cardiology taking a 2nd read on her original EKG, determined patient was not in a fib on admission but rather sinus tach with PACs - Telemetry 06/24 showed a fib/a flutter 0329 with convert back to sinus rhythm 0842 - Anticoagulated with IV heparin on admission, started on 2.5 mg Eliquis BID after discussion with patient and family about risks vs benefits 06/24 - [id number] score 5 = 7.2% stroke risk per year - HAS-BLED score 2 = moderate risk for major bleeding - with patient fall likely due to acute infection and referral to PT, fall risk is relatively low - TSH WNL - cardiology consulted; confirmed a fib - continue metoprolol 25mg PO BID and Eliquis - Sinus tachycardia well controlled - Continue to monitor on Telemetry (5) NSVT (nonsustained ventricular tachycardia): Plan: Stable episode of 8 beat V tach 06/23 - Echo here with preserved EF - restarted on Metoprolol 25 mg BID 06/23 without reoccurrence of V Tach - continue to monitor on tele (6) Fall: Plan: Appears to be back to her baseline at this time Suspected secondary to ongoing right knee effusion and UTI - Mild graze injury to right shoulder - No bone injury from fall - XR hip/pelvis, chest, shoulder, knee negative - CT head and cervical spine negative for acute findings - Right knee pain - continue prn Tylenol and ice - PT/OT consulted - [facility] to [facility] denied, [facility], [facility], and [facility] referrals placed (7) Elevated troponin: Plan: stable; trended downward on admission Suspect secondary to demand ischemia due to current infection - No chest pain or shortness of breath to suggest ACS - ECG without ischemic changes - TTE showed EF 60-65%, borderline LVH (8) Anemia: Plan: Appears chronic; B12 deficiency and Iron deficiency anemia - Hgb 10.5, appears to be consistently low at baseline - history of lung cancer - appears hypochromic microcytic - Iron panel shows anemia of chronic disease, ferritin WNL but transferrin sat mildly low at 10% - started on PO iron supplement - Colace and Miralax prn with start of iron - B12 low - 1000 mg IM 06/23, will continue on 1000 mg PO daily - folate WNL, TSH normal (9) Benign essential hypertension: Plan: Stable; mildly elevated - held antihypertensives on admission due to metoprolol use; which was discontinued 06/22 - metoprolol resumed 06/23 due to NVST, hypertension, and A fib (06/24) - restart lisinopril 06/25 - will likely discontinue amlodipine on discharge with switch to metoprolol - can titrate up metoprolol dose if need improved BP control Plan Chronic Stable Diagnoses: DM - Low HbA1C 5.8 in January, Controlled on metformin at home (but on hold here) therefore no need to cover with insulin, BSG ACHS, or diabetic diet Primary Cancer of [place] [facility] - Follows with oncology and pulmonary; non-small cell carcinoma, consistent with adenocarcinoma, of left upper lobe - treated with radiation - Suspicious area of right lower lobe, appointment 07/18 with pulm to discuss possible bronchoscopy VTE Prophylaxis - Eliquis 2.5 mg BID Diet - regular Disposition - med/tele; Medically cleared for discharge to rehab facility. [facility] denied, referral Ebony Hernandez at [facility] pending Admission and Anticipated Discharge Date Admission Date: June 21, 2024 Supervising Physician Co-Signing Physician Notes I did not personally see the patient at the bedside today. Labs and images were reviewed, case was discussed with Melida Malone PA-C and I agree with the assessment and management above Subjective Patient seen at bedside and doing well. No acute events overnight and no complaints. Her appetite has been stable, no dysuria. Patient's son updated at bedside. Tele: Sinus rhythm with occasional PAC and PVC. Rate 70-90. Review of Systems Review of Systems: see HPI Physical Exam Physical Exam: The patient is awake, alert and oriented 3, well developed and well nourished, normocephalic and atraumatic, in no acute distress. Non-toxic appearing. HEENT- EOMI, mucous membranes dry. Hearing grossly intact. Heart-normal S1 and S2. No murmurs, rubs or gallops. Lungs-clear bilaterally, no respiratory distress, no accessory muscle use. Abdomen-normal bowel sounds and soft. No ascites noted. Non-tender. Extremities- no clubbing, cyanosis. Right knee with effusion, not erythematous or warm to touch. Rheumatologic-normal range of motion. Psychiatric-normal affect. Results & Data Results & Data Vital Signs (Past 12 Hours) Vital Signs Temp Pulse Pulse Resp BP Pulse Ox O2 Del Method 06/25/24 07:57 36.6 C 83 16 138/70 97 Room Air 06/25/24 07:09 87 06/25/24 03:35 36.4 C L 78 20 133/70 94 Room Air 06/24/24 22:47 36.5 C 76 18 162/83 H 96 Room Air 06/24/24 21:58 63 Laboratory Results reviewed CBC, BMP, urine culture PG Care Time/CCT Total # of Minutes Spent Total Time Spent with Patient: Total time spent is greater than 50% in coordination of care (as documented) at patient's floor/unit and/or counseling patient: Coding [place] [address] SUB INP/OBS CARE 2/35MIN Patient Type Established Medical Decision Making Moderate Complexity Diagnoses Urinary tract infection N39.0 Acute kidney injury N17.9 Hyponatremia E87.1 PAF (paroxysmal atrial fibrillation) I48.0 NSVT (nonsustained ventricular tachycardia) I47.29 Fall W19.XXXA Elevated troponin R79.89 Anemia D64.9 Benign essential hypertension I10 Time Spent (min) 30
[2024-06-25] MEDS: lisinopril 40 MG TAB PO SCH (10:39)
--- NOTE | 2024-06-25 10:42 | Cardiology Progress Note ---
Date of Service June 25, 2024 Assessment & Plan (1) PAF (paroxysmal atrial fibrillation): Plan: -6-hour episode of atrial fibrillation yesterday. -Agree with low-dose Eliquis. -Continue metoprolol to tartrate 25 mg twice daily. -I am happy to follow her as an outpatient. (2) Benign essential hypertension: Plan: -Agree with addition of lisinopril. Admission and Anticipated Discharge Date Admission Date: June 21, 2024 Subjective The patient is resting comfortably in bed without complaints of chest pain, dyspnea, or palpitations. She is anxious for hospital discharge. Her son, Chaparro, at the bedside. Physical Exam Physical Exam: In general this is a well-developed well-nourished white female in no acute distress. HEENT exam is negative. Neck reveals normal carotid upstrokes without bruits. Jugular venous pressure is flat at 90. There is no thyromegaly. Cardiovascular exam reveals a regular rhythm with distant heart sounds. No obvious murmurs. Lungs are clear without rales, rhonchi, or wheezes. Abdomen is soft without bruits. Extremities reveal intact radial artery pulses bilaterally. There is no peripheral edema. 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 No recurrent atrial fibrillation. PG Care Time/CCT Total # of Minutes Spent Total Time Spent with Patient: Total time spent is greater than 50% in coordination of care (as documented) at patient's floor/unit and/or counseling patient: Coding Level of Care Code 22062 SUB INP/OBS CARE 3/50MIN Diagnoses PAF (paroxysmal atrial fibrillation) I48.0 Benign essential hypertension I10
[2024-06-26 06:49] LABS: BUN Creatinine Ratio 26.2 (10-20); Calcium 8.6 mg/dl (8.6-10.3); Creatinine Clr Calc Pharmacy 40.2 ml/min; Potassium 4.2 mmol/L (3.5-5.1)
--- NOTE | 2024-06-26 08:36 | Hospitalist Progress Note ---
Date of Service June 26, 2024 Assessment & Plan (1) Urinary tract infection: Plan: Asymptomatic but was weak and fell no previous urine cultures/ history of UTI possibly early sepsis on admission; resolved - sinus tachycardic with PACs on admission 100-110, hypotensive - resolved with IVFs and starting metoprolol - afebrile, mild leukocytosis resolved, lactate 3.0 on admission - UA suspicious for UTI; turbid, > 50 WBC, 4+ bacteria with > 20 hyaline casts - Urine cultures showed Enterococcus -> discontinued ceftriaxone and started amoxicillin 500 Mg p.o. 2 times daily (started 06/24 PM) to complete 7-day course (2) Acute kidney injury: Plan: resolved with 1 L IV fluid resuscitation 06/22 likely secondary to UTI, and renal hypoperfusion with hypotension and recent poor oral intake - 06/22: Cr increased to 1.88, BUN elevated to 45 indicating pre-renal cause 06/22 -> Cr improved 1.16 on 06/23 after IV fluids - 06/26: Cr and BUN at baseline - FENa 0.4% = prerenal cause - post void bladder scan 63 mL - resume lisinopril 06/25 due to increased BP and resolved ALDO - continue to promote oral hydration - see UTI workup (3) Hyponatremia: Plan: improved with IV fluid resuscitation 06/22 With ALDO, UTI, and hypovolemic - Na 129 -> 134 after IV fluids 06/22 - currently downtrending at 131 - urine osmol 476, serum osmol 288, urine Na 44 - continue to monitor on daily BMP and continue to promote oral hydration with IV fluid shortage - can consider small fluid bolus if Na drops below 130 again - daily BMP (4) Benign essential hypertension: Plan: Stable; mildly elevated - metoprolol started 06/23 due to NVST, hypertension, and A fib (06/24) - restart lisinopril 06/25 - will likely discontinue amlodipine on discharge with switch to metoprolol - can titrate up metoprolol dose if need improved BP control - BP elevated overnight 06/25-06/26 - improved with AM HTN meds; continue to monitor (5) PAF (paroxysmal atrial fibrillation): Plan: New onset paroxysmal a fib - EKG on admission initially read as new onset A fib with RVR, rate 104 -> in sinus rhythm since placed on telemetry 06/21 with frequent PACs - With cardiology taking a 2nd read on her original EKG, determined patient was not in a fib on admission but rather sinus tach with PACs - Telemetry 06/24 showed a fib/a flutter 0329 with convert back to sinus rhythm 0842 - Has been in sinus rhythm since 06/24 - Anticoagulated with IV heparin on admission, started on 2.5 mg Eliquis BID after discussion with patient and family about risks vs benefits 06/24 - [id number] score 5 = 7.2% stroke risk per year - HAS-BLED score 2 = moderate risk for major bleeding - with patient fall likely due to acute infection and referral to PT, fall risk is relatively low - TSH WNL - cardiology consulted; confirmed a fib, follow up with Dr. Ross as an out patient - continue metoprolol 25mg PO BID and Eliquis - Sinus tachycardia well controlled - Continue to monitor on Telemetry (6) NSVT (nonsustained ventricular tachycardia): Plan: Stable episode of 8 beat V tach 06/23 - Echo here with preserved EF - restarted on Metoprolol 25 mg BID 06/23 without reoccurrence of V Tach - continue to monitor on tele (7) Fall: Plan: Appears to be back to her baseline at this time Suspected secondary to ongoing right knee effusion and UTI - Mild graze injury to right shoulder - No bone injury from fall - XR hip/pelvis, chest, shoulder, knee negative - CT head and cervical spine negative for acute findings - Right knee pain - continue prn Tylenol and ice - PT/OT consulted - [facility], [facility], [facility], and [facility] referrals placed (8) Elevated troponin: Plan: stable; trended downward on admission Suspect secondary to demand ischemia due to current infection - No chest pain or shortness of breath to suggest ACS - ECG without ischemic changes - TTE showed EF 60-65%, borderline LVH (9) Anemia: Plan: Appears chronic; B12 deficiency and Iron deficiency anemia - Hgb 10.5, appears to be consistently low at baseline - history of lung cancer - appears hypochromic microcytic - Iron panel shows anemia of chronic disease, ferritin WNL but transferrin sat mildly low at 10% - started on PO iron supplement - Colace and Miralax prn with start of iron - B12 low - 1000 mg IM 06/23, will continue on 1000 mg PO daily - folate WNL, TSH normal Plan Chronic Stable Diagnoses: DM - Low HbA1C 5.8 in January, Controlled on metformin at home (but on hold here) therefore no need to cover with insulin, BSG ACHS, or diabetic diet Primary Cancer of [place] [facility] - Follows with oncology and pulmonary; non-small cell carcinoma, consistent with adenocarcinoma, of left upper lobe - treated with radiation - Suspicious area of right lower lobe, appointment 07/18 with pulm to discuss possible bronchoscopy VTE Prophylaxis - Eliquis 2.5 mg BID Diet - regular Disposition - med/tele; Medically cleared for discharge to rehab facility. [facility] denied, referral Mary, Ebony at [facility], and [facility] pending Admission and Anticipated Discharge Date Admission Date: June 21, 2024 Subjective Patient seen at bedside and doing well. She denies dizziness, lightheadedness, chest pain, shortness of breath, and headaches. She stated that her knee pain is improving. She is awaiting placement. Tele: Sinus with occasional PAC and PVC, HR 84. Review of Systems Review of Systems: see HPI Physical Exam Physical Exam: The patient is awake, alert and oriented 3, well developed and well nourished, normocephalic and atraumatic, in no acute distress. Non-toxic appearing. HEENT- EOMI, mucous membranes dry. Hearing grossly intact. Heart-normal S1 and S2. No murmurs, rubs or gallops. Lungs-clear bilaterally, no respiratory distress, no accessory muscle use. Abdomen-normal bowel sounds and soft. No ascites noted. Non-tender. Extremities- no clubbing, cyanosis. Right knee with effusion, not erythematous or warm to touch. Psychiatric-normal affect. Results & Data Results & Data Vital Signs (Past 12 Hours) Vital Signs Temp Pulse Pulse Resp BP BP Pulse Ox 06/26/24 07:53 36.6 C 80 20 170/78 H 95 06/26/24 07:11 70 06/26/24 04:43 81 179/76 H 06/26/24 01:56 36.8 C 67 16 182/73 H 166/76 H 97 06/25/24 23:07 63 06/25/24 23:05 54 L 06/25/24 22:41 36.7 C 69 18 148/63 H 98 O2 Del Method 06/26/24 07:53 Room Air 06/26/24 07:11 06/26/24 04:43 06/26/24 01:56 Room Air 06/25/24 23:07 06/25/24 23:05 06/25/24 22:41 Room Air Laboratory Results Reviewed BMP PG Care Time/CCT Total # of Minutes Spent Total Time Spent with Patient: Total time spent is greater than 50% in coordination of care (as documented) at patient's floor/unit and/or counseling patient: Coding [place] [address] SUB INP/OBS CARE 10/08MIN Patient Type Established Medical Decision Making Low Complexity Diagnoses Urinary tract infection N39.0 Acute kidney injury N17.9 Hyponatremia E87.1 Benign essential hypertension I10 PAF (paroxysmal atrial fibrillation) I48.0 NSVT (nonsustained ventricular tachycardia) I47.29 Fall W19.XXXA Elevated troponin R79.89 Anemia D64.9
[2024-06-27 06:26] LABS: BUN Creatinine Ratio 25.9 (10-20); Creatinine Clr Calc Pharmacy 39.7 ml/min; Potassium 4.4 mmol/L (3.5-5.1)
--- NOTE | 2024-06-28 07:42 | Hospitalist Progress Note ---
Date of Service June 27, 2024 Assessment & Plan (1) Urinary tract infection: Plan: Asymptomatic but was weak and fell no previous urine cultures/ history of UTI possibly early sepsis on admission; resolved - sinus tachycardic with PACs on admission 100-110, hypotensive - resolved with IVFs and starting metoprolol - afebrile, mild leukocytosis resolved, lactate 3.0 on admission - UA suspicious for UTI; turbid, > 50 WBC, 4+ bacteria with > 20 hyaline casts - Urine cultures showed Enterococcus -> discontinued ceftriaxone and started amoxicillin 500 Mg p.o. 2 times daily (started 06/24 PM) to complete 7-day course (2) Acute kidney injury: Plan: resolved with 1 L IV fluid resuscitation 06/22 likely secondary to UTI, and renal hypoperfusion with hypotension and recent poor oral intake - 06/22: Cr increased to 1.88, BUN elevated to 45 indicating pre-renal cause 06/22 -> Cr improved 1.16 on 06/23 after IV fluids - 06/26: Cr and BUN at baseline - FENa 0.4% = prerenal cause - post void bladder scan 63 mL - resume lisinopril 06/25 due to increased BP and resolved ALDO - continue to promote oral hydration - see UTI workup (3) Hyponatremia: Plan: improved with IV fluid resuscitation 06/22 With ALDO, UTI, and hypovolemic - Na 129 -> 134 after IV fluids 06/22 - currently downtrending at 131 - urine osmol 476, serum osmol 288, urine Na 44 - continue to monitor on daily BMP and continue to promote oral hydration with IV fluid shortage - can consider small fluid bolus if Na drops below 130 again - daily BMP (4) Benign essential hypertension: Plan: Stable; mildly elevated - metoprolol started 06/23 due to NVST, hypertension, and A fib (06/24) - restart lisinopril 06/25 - will likely discontinue amlodipine on discharge with switch to metoprolol - can titrate up metoprolol dose if need improved BP control - BP elevated overnight 06/25-06/26 - improved with AM HTN meds; continue to monitor (5) PAF (paroxysmal atrial fibrillation): Plan: New onset paroxysmal a fib - EKG on admission initially read as new onset A fib with RVR, rate 104 -> in sinus rhythm since placed on telemetry 06/21 with frequent PACs - With cardiology taking a 2nd read on her original EKG, determined patient was not in a fib on admission but rather sinus tach with PACs - Telemetry 06/24 showed a fib/a flutter 0329 with convert back to sinus rhythm 0842 - Has been in sinus rhythm since 06/24 - Anticoagulated with IV heparin on admission, started on 2.5 mg Eliquis BID after discussion with patient and family about risks vs benefits 06/24 - [id number] score 5 = 7.2% stroke risk per year - HAS-BLED score 2 = moderate risk for major bleeding - with patient fall likely due to acute infection and referral to PT, fall risk is relatively low - TSH WNL - cardiology consulted; confirmed a fib, follow up with Dr. Ross as an out patient - continue metoprolol 25mg PO BID and Eliquis - Sinus tachycardia well controlled - Continue to monitor on Telemetry (6) NSVT (nonsustained ventricular tachycardia): Plan: Stable episode of 8 beat V tach 06/23 - Echo here with preserved EF - restarted on Metoprolol 25 mg BID 06/23 without reoccurrence of V Tach - continue to monitor on tele (7) Fall: Plan: Appears to be back to her baseline at this time Suspected secondary to ongoing right knee effusion and UTI - Mild graze injury to right shoulder - No bone injury from fall - XR hip/pelvis, chest, shoulder, knee negative - CT head and cervical spine negative for acute findings - Right knee pain - continue prn Tylenol and ice - PT/OT consulted - [facility] denied, [facility], [facility], and [facility] referrals placed (8) Elevated troponin: Plan: stable; trended downward on admission Suspect secondary to demand ischemia due to current infection - No chest pain or shortness of breath to suggest ACS - ECG without ischemic changes - TTE showed EF 60-65%, borderline LVH (9) Anemia: Plan: Appears chronic; B12 deficiency and Iron deficiency anemia - Hgb 10.5, appears to be consistently low at baseline - history of lung cancer - appears hypochromic microcytic - Iron panel shows anemia of chronic disease, ferritin WNL but transferrin sat mildly low at 10% - started on PO iron supplement - Colace and Miralax prn with start of iron - B12 low - 1000 mg IM 06/23, will continue on 1000 mg PO daily - folate WNL, TSH normal Plan Chronic Stable Diagnoses: DM - Low HbA1C 5.8 in January, Controlled on metformin at home (but on hold here) therefore no need to cover with insulin, BSG ACHS, or diabetic diet Primary Cancer of [place] [facility] - Follows with oncology and pulmonary; non-small cell carcinoma, consistent with adenocarcinoma, of left upper lobe - treated with radiation - Suspicious area of right lower lobe, appointment 07/18 with pulm to discuss possible bronchoscopy VTE Prophylaxis - Eliquis 2.5 mg BID Diet - regular Disposition - med/tele; Medically cleared for discharge to rehab facility. [facility] denied, referral [facility], Ebony at [facility], and [facility] pending Awaiting placement. Admission and Anticipated Discharge Date Admission Date: June 21, 2024 Subjective 88 yo female reports no new symptoms. Review of Systems Review of Systems: All systems reviewed & are unremarkable except as noted in HPI & below Physical Exam Physical Exam: The patient is awake, alert and oriented 3, well developed and well nourished, normocephalic and atraumatic, in no acute distress. Non-toxic appearing. HEENT- EOMI, mucous membranes dry. Hearing grossly intact. Heart-normal S1 and S2. No murmurs, rubs or gallops. Lungs-clear bilaterally, no respiratory distress, no accessory muscle use. Abdomen-normal bowel sounds and soft. No ascites noted. Non-tender. Extremities- no clubbing, cyanosis. Right knee with effusion, not erythematous or warm to touch. Psychiatric-normal affect. Results & Data Results & Data Vital Signs (Past 12 Hours) Vital Signs Temp Pulse Pulse Resp BP Pulse Ox O2 Del Method 06/28/24 07:17 36.5 C 68 16 154/77 H 97 Room Air 06/28/24 07:05 76 06/28/24 02:37 36.5 C 78 18 174/77 H 96 Room Air 06/27/24 23:09 36.8 C 57 L 18 173/70 H 95 Room Air 06/27/24 21:54 65 06/27/24 21:39 Room Air PG Care Time/CCT Total # of Minutes Spent Total Time Spent with Patient: Total time spent is greater than 50% in coordination of care (as documented) at patient's floor/unit and/or counseling patient: Coding Level of Care Code 50439 SUB INP/OBS CARE 35MIN Diagnoses Urinary tract infection N39.0 Acute kidney injury N17.9 Hyponatremia E87.1 Benign essential hypertension I10 PAF (paroxysmal atrial fibrillation) I48.0 NSVT (nonsustained ventricular tachycardia) I47.29 Fall W19.XXXA Elevated troponin R79.89 Anemia D64.9 Time Spent (min) 35 Comment chart rounding.
[2024-06-28] MEDS ORDERED: DICLOFENAC SOD 1% GEL 100 GM TUBE EXT PRN (16:59)
--- NOTE | 2024-06-28 21:52 | Hospitalist Progress Note ---
Date of Service June 28, 2024 Assessment & Plan (1) Urinary tract infection: Plan: Asymptomatic but was weak and fell no previous urine cultures/ history of UTI possibly early sepsis on admission; resolved - sinus tachycardic with PACs on admission 100-110, hypotensive - resolved with IVFs and starting metoprolol - afebrile, mild leukocytosis resolved, lactate 3.0 on admission - UA suspicious for UTI; turbid, > 50 WBC, 4+ bacteria with > 20 hyaline casts - Urine cultures showed Enterococcus -> discontinued ceftriaxone and started amoxicillin 500 Mg p.o. 2 times daily (started 06/24 PM) to complete 7-day course (2) Acute kidney injury: Plan: resolved with 1 L IV fluid resuscitation 06/22 likely secondary to UTI, and renal hypoperfusion with hypotension and recent poor oral intake - 06/22: Cr increased to 1.88, BUN elevated to 45 indicating pre-renal cause 06/22 -> Cr improved 1.16 on 06/23 after IV fluids - 06/26: Cr and BUN at baseline - FENa 0.4% = prerenal cause - post void bladder scan 63 mL - resume lisinopril 06/25 due to increased BP and resolved ALDO - continue to promote oral hydration - see UTI workup (3) Hyponatremia: Plan: improved with IV fluid resuscitation 06/22 With ALDO, UTI, and hypovolemic - Na 129 -> 134 after IV fluids 06/22 - currently downtrending at 131 - urine osmol 476, serum osmol 288, urine Na 44 - continue to monitor on daily BMP and continue to promote oral hydration with IV fluid shortage - can consider small fluid bolus if Na drops below 130 again - daily BMP (4) Benign essential hypertension: Plan: Stable; mildly elevated - metoprolol started 06/23 due to NVST, hypertension, and A fib (06/24) - restart lisinopril 06/25 - will likely discontinue amlodipine on discharge with switch to metoprolol - can titrate up metoprolol dose if need improved BP control - BP elevated overnight 06/25-06/26 - improved with AM HTN meds; continue to monitor (5) PAF (paroxysmal atrial fibrillation): Plan: New onset paroxysmal a fib - EKG on admission initially read as new onset A fib with RVR, rate 104 -> in sinus rhythm since placed on telemetry 06/21 with frequent PACs - With cardiology taking a 2nd read on her original EKG, determined patient was not in a fib on admission but rather sinus tach with PACs - Telemetry 06/24 showed a fib/a flutter 0329 with convert back to sinus rhythm 0842 - Has been in sinus rhythm since 06/24 - Anticoagulated with IV heparin on admission, started on 2.5 mg Eliquis BID after discussion with patient and family about risks vs benefits 06/24 - [id number] score 5 = 7.2% stroke risk per year - HAS-BLED score 2 = moderate risk for major bleeding - with patient fall likely due to acute infection and referral to PT, fall risk is relatively low - TSH WNL - cardiology consulted; confirmed a fib, follow up with Dr. Ross as an out patient - continue metoprolol 25mg PO BID and Eliquis - Sinus tachycardia well controlled - Continue to monitor on Telemetry (6) NSVT (nonsustained ventricular tachycardia): Plan: Stable episode of 8 beat V tach 06/23 - Echo here with preserved EF - restarted on Metoprolol 25 mg BID 06/23 without reoccurrence of V Tach - continue to monitor on tele (7) Fall: Plan: Appears to be back to her baseline at this time Suspected secondary to ongoing right knee effusion and UTI - Mild graze injury to right shoulder - No bone injury from fall - XR hip/pelvis, chest, shoulder, knee negative - CT head and cervical spine negative for acute findings - Right knee pain - continue prn Tylenol and ice - PT/OT consulted - [facility], and [facility] referrals placed (8) Elevated troponin: Plan: stable; trended downward on admission Suspect secondary to demand ischemia due to current infection - No chest pain or shortness of breath to suggest ACS - ECG without ischemic changes - TTE showed EF 60-65%, borderline LVH (9) Anemia: Plan: Appears chronic; B12 deficiency and Iron deficiency anemia - Hgb 10.5, appears to be consistently low at baseline - history of lung cancer - appears hypochromic microcytic - Iron panel shows anemia of chronic disease, ferritin WNL but transferrin sat mildly low at 10% - started on PO iron supplement - Colace and Miralax prn with start of iron - B12 low - 1000 mg IM 06/23, will continue on 1000 mg PO daily - folate WNL, TSH normal Plan Chronic Stable Diagnoses: DM - Low HbA1C 5.8 in January, Controlled on metformin at home (but on hold here) therefore no need to cover with insulin, BSG ACHS, or diabetic diet Primary Cancer of [facility] - Follows with oncology and pulmonary; non-small cell carcinoma, consistent with adenocarcinoma, of left upper lobe - treated with radiation - Suspicious area of right lower lobe, appointment 07/18 with pulm to discuss possible bronchoscopy VTE Prophylaxis - Eliquis 2.5 mg BID Diet - regular Disposition - med/tele; Medically cleared for discharge to rehab facility. [facility] denied, referral [facility], [facility], and [facility] pending Awaiting placement. Admission and Anticipated Discharge Date Admission Date: June 21, 2024 Subjective Patient reports no new symptoms. Physical Exam Physical Exam: The patient is awake, alert and oriented 3, well developed and well nourished, normocephalic and atraumatic, in no acute distress. Non-toxic appearing. HEENT- EOMI, mucous membranes dry. Hearing grossly intact. Heart-normal S1 and S2. No murmurs, rubs or gallops. Lungs-clear bilaterally, no respiratory distress, no accessory muscle use. Abdomen-normal bowel sounds and soft. No ascites noted. Non-tender. Extremities- no clubbing, cyanosis. Right knee with effusion, not erythematous or warm to touch. Psychiatric-normal affect. Results & Data Results & Data Vital Signs (Past 12 Hours) Vital Signs Temp Pulse Pulse Resp BP BP Pulse Ox 06/28/24 20:28 06/28/24 19:46 36.7 C 73 16 157/71 H 98 06/28/24 16:00 37.2 C 70 16 172/79 H 98 06/28/24 14:30 69 06/28/24 13:23 36.6 C 76 18 114/73 99 06/28/24 11:07 36.9 C 69 16 148/69 H 98 O2 Del Method 06/28/24 20:28 Room Air 06/28/24 19:46 Room Air 06/28/24 16:00 Room Air 06/28/24 14:30 06/28/24 13:23 Room Air 06/28/24 11:07 Room Air PG Care Time/CCT Total # of Minutes Spent Total Time Spent with Patient: Total time spent is greater than 50% in coordination of care (as documented) at patient's floor/unit and/or counseling patient: Coding Level of Care Code 49784 SUB INP/OBS CARE 10/08MIN Diagnoses Urinary tract infection N39.0 Acute kidney injury N17.9 Hyponatremia E87.1 Benign essential hypertension I10 PAF (paroxysmal atrial fibrillation) I48.0 NSVT (nonsustained ventricular tachycardia) I47.29 Fall W19.XXXA Elevated troponin R79.89 Anemia D64.9
[2024-06-29 06:24] LABS: Hematocrit (blood only) 26.9 % (37.0-47.0); Mean Corpuscular Hemoglobin 27.8 pg (25.0-34.0); Mean Corpuscular Hgb Conc 33.5 g/dL (32.0-36.0); Mean Platelet Volume 9.6 fL (9.4-12.4); Platelet Count 421 K/uL (130-400); RDW Standard Deviation 48.8 fL (36.4-46.3); Red Blood Count 3.24 M/uL (4.20-5.40); White Blood Count 6.41 K/ul (4.8-10.8)
[2024-06-29 06:40] LABS: BUN Creatinine Ratio 20.7 (10-20); Calcium 8.8 mg/dl (8.6-10.3); Creatinine Clr Calc Pharmacy 38.8 ml/min; Potassium 4.2 mmol/L (3.5-5.1)
--- NOTE | 2024-06-29 23:04 | Hospitalist Progress Note ---
Date of Service June 29, 2024 Assessment & Plan (1) Urinary tract infection: Plan: Asymptomatic but was weak and fell no previous urine cultures/ history of UTI possibly early sepsis on admission; resolved - sinus tachycardic with PACs on admission 100-110, hypotensive - resolved with IVFs and starting metoprolol - afebrile, mild leukocytosis resolved, lactate 3.0 on admission - UA suspicious for UTI; turbid, > 50 WBC, 4+ bacteria with > 20 hyaline casts - Urine cultures showed Enterococcus -> discontinued ceftriaxone and started amoxicillin 500 Mg p.o. 2 times daily (started 06/24 PM) to complete 7-day course (2) Acute kidney injury: Plan: resolved with 1 L IV fluid resuscitation 06/22 likely secondary to UTI, and renal hypoperfusion with hypotension and recent poor oral intake - 06/22: Cr increased to 1.88, BUN elevated to 45 indicating pre-renal cause 06/22 -> Cr improved 1.16 on 06/23 after IV fluids - 06/26: Cr and BUN at baseline - FENa 0.4% = prerenal cause - post void bladder scan 63 mL - resume lisinopril 06/25 due to increased BP and resolved ALDO - continue to promote oral hydration - see UTI workup (3) Hyponatremia: Plan: improved with IV fluid resuscitation 06/22 With ALDO, UTI, and hypovolemic - Na 129 -> 134 after IV fluids 06/22 - currently downtrending at 131 - urine osmol 476, serum osmol 288, urine Na 44 - continue to monitor on daily BMP and continue to promote oral hydration with IV fluid shortage - can consider small fluid bolus if Na drops below 130 again - daily BMP (4) Benign essential hypertension: Plan: Stable; mildly elevated - metoprolol started 06/23 due to NVST, hypertension, and A fib (06/24) - restart lisinopril 06/25 - will likely discontinue amlodipine on discharge with switch to metoprolol - can titrate up metoprolol dose if need improved BP control - BP elevated overnight 06/25-06/26 - improved with AM HTN meds; continue to monitor (5) PAF (paroxysmal atrial fibrillation): Plan: New onset paroxysmal a fib - EKG on admission initially read as new onset A fib with RVR, rate 104 -> in sinus rhythm since placed on telemetry 06/21 with frequent PACs - With cardiology taking a 2nd read on her original EKG, determined patient was not in a fib on admission but rather sinus tach with PACs - Telemetry 06/24 showed a fib/a flutter 0329 with convert back to sinus rhythm 0842 - Has been in sinus rhythm since 06/24 - Anticoagulated with IV heparin on admission, started on 2.5 mg Eliquis BID after discussion with patient and family about risks vs benefits 06/24 - [id number] score 5 = 7.2% stroke risk per year - HAS-BLED score 2 = moderate risk for major bleeding - with patient fall likely due to acute infection and referral to PT, fall risk is relatively low - TSH WNL - cardiology consulted; confirmed a fib, follow up with Dr. Ross as an out patient - continue metoprolol 25mg PO BID and Eliquis - Sinus tachycardia well controlled - Continue to monitor on Telemetry (6) NSVT (nonsustained ventricular tachycardia): Plan: Stable episode of 8 beat V tach 06/23 - Echo here with preserved EF - restarted on Metoprolol 25 mg BID 06/23 without reoccurrence of V Tach - continue to monitor on tele (7) Fall: Plan: Appears to be back to her baseline at this time Suspected secondary to ongoing right knee effusion and UTI - Mild graze injury to right shoulder - No bone injury from fall - XR hip/pelvis, chest, shoulder, knee negative - CT head and cervical spine negative for acute findings - Right knee pain - continue prn Tylenol and ice - PT/OT consulted - [facility], and [facility] referrals placed (8) Elevated troponin: Plan: stable; trended downward on admission Suspect secondary to demand ischemia due to current infection - No chest pain or shortness of breath to suggest ACS - ECG without ischemic changes - TTE showed EF 60-65%, borderline LVH (9) Anemia: Plan: Appears chronic; B12 deficiency and Iron deficiency anemia - Hgb 10.5, appears to be consistently low at baseline - history of lung cancer - appears hypochromic microcytic - Iron panel shows anemia of chronic disease, ferritin WNL but transferrin sat mildly low at 10% - started on PO iron supplement - Colace and Miralax prn with start of iron - B12 low - 1000 mg IM 06/23, will continue on 1000 mg PO daily - folate WNL, TSH normal Plan Chronic Stable Diagnoses: DM - Low HbA1C 5.8 in January, Controlled on metformin at home (but on hold here) therefore no need to cover with insulin, BSG ACHS, or diabetic diet Primary Cancer of [facility] - Follows with oncology and pulmonary; non-small cell carcinoma, consistent with adenocarcinoma, of left upper lobe - treated with radiation - Suspicious area of right lower lobe, appointment 07/18 with pulm to discuss possible bronchoscopy VTE Prophylaxis - Eliquis 2.5 mg BID Diet - regular Disposition - med/tele; Medically cleared for discharge to rehab facility. [facility] denied, referral [facility], [facility], and [facility] pending Awaiting placement. Admission and Anticipated Discharge Date Admission Date: June 21, 2024 Subjective Patient reports no new symptoms. Physical Exam Physical Exam: The patient is awake, alert and oriented 3, well developed and well nourished, normocephalic and atraumatic, in no acute distress. Non-toxic appearing. HEENT- EOMI, mucous membranes dry. Hearing grossly intact. Heart-normal S1 and S2. No murmurs, rubs or gallops. Lungs-clear bilaterally, no respiratory distress, no accessory muscle use. Abdomen-normal bowel sounds and soft. No ascites noted. Non-tender. Extremities- no clubbing, cyanosis. Right knee with effusion, not erythematous or warm to touch. Psychiatric-normal affect. Results & Data Results & Data Vital Signs (Past 12 Hours) Vital Signs Temp Pulse Pulse Resp BP BP Pulse Ox 06/29/24 21:53 06/29/24 19:19 36.6 C 75 16 157/77 H 98 06/29/24 15:34 36.9 C 70 16 134/67 99 06/29/24 13:00 75 06/29/24 12:58 37.3 C 67 16 161/77 H 96 O2 Del Method 06/29/24 21:53 Room Air 06/29/24 19:19 Room Air 06/29/24 15:34 Room Air 06/29/24 13:00 06/29/24 12:58 Room Air PG Care Time/CCT Total # of Minutes Spent Total Time Spent with Patient: Total time spent is greater than 50% in coordination of care (as documented) at patient's floor/unit and/or counseling patient: Coding Level of Care Code 24699 SUB INP/OBS CARE 10/08MIN Diagnoses Urinary tract infection N39.0 Acute kidney injury N17.9 Hyponatremia E87.1 Benign essential hypertension I10 PAF (paroxysmal atrial fibrillation) I48.0 NSVT (nonsustained ventricular tachycardia) I47.29 Fall W19.XXXA Elevated troponin R79.89 Anemia D64.9
[2024-06-30 07:58] VITALS: RESP 17
[2024-06-30 11:41] VITALS: BP 160/66; TEMP 97.7; O2SAT 99
[2024-06-30 14:20] VITALS: PULSE 77
--- NOTE | 2024-07-01 14:59 | Discharge Summary ---
Discharge Summary Date of Service June 30, 2024 Principal Dx & Hospital Course #1 = Principal Diagnosis (1) Urinary tract infection: Asymptomatic but was weak and fell no previous urine cultures/ history of UTI possibly early sepsis on admission; resolved - sinus tachycardic with PACs on admission 100-110, hypotensive - resolved with IVFs and starting metoprolol - afebrile, mild leukocytosis resolved, lactate 3.0 on admission - UA suspicious for UTI; turbid, > 50 WBC, 4+ bacteria with > 20 hyaline casts - Urine cultures showed Enterococcus -> discontinued ceftriaxone and started amoxicillin 500 Mg p.o. 2 times daily (started 06/24 PM) to complete 7-day course (2) Acute kidney injury: resolved with 1 L IV fluid resuscitation 06/22 likely secondary to UTI, and renal hypoperfusion with hypotension and recent poor oral intake - 06/22: Cr increased to 1.88, BUN elevated to 45 indicating pre-renal cause 06/22 -> Cr improved 1.16 on 06/23 after IV fluids - 06/26: Cr and BUN at baseline - FENa 0.4% = prerenal cause - post void bladder scan 63 mL - resume lisinopril 06/25 due to increased BP and resolved ALDO - continue to promote oral hydration - see UTI workup (3) Hyponatremia: improved with IV fluid resuscitation 06/22 With ALDO, UTI, and hypovolemic - Na 129 -> 134 after IV fluids 06/22 - currently downtrending at 131 - urine osmol 476, serum osmol 288, urine Na 44 - continue to promote oral hydration - (4) Benign essential hypertension: Stable; mildly elevated - metoprolol started 06/23 due to NVST, hypertension, and A fib (06/24) - restart lisinopril 06/25 - will likely discontinue amlodipine on discharge with switch to metoprolol - can titrate up metoprolol dose if need improved BP control - BP elevated overnight 06/25-06/26 - improved with AM HTN meds; continue to monitor (5) PAF (paroxysmal atrial fibrillation): New onset paroxysmal a fib - EKG on admission initially read as new onset A fib with RVR, rate 104 -> in sinus rhythm since placed on telemetry 06/21 with frequent PACs - With cardiology taking a 2nd read on her original EKG, determined patient was not in a fib on admission but rather sinus tach with PACs - Telemetry 06/24 showed a fib/a flutter 0329 with convert back to sinus rhythm 0842 - Has been in sinus rhythm since 06/24 - Anticoagulated with IV heparin on admission, started on 2.5 mg Eliquis BID after discussion with patient and family about risks vs benefits 06/24 - [id number]-[id number] score 5 = 7.2% stroke risk per year - HAS-BLED score 2 = moderate risk for major bleeding - with patient fall likely due to acute infection and referral to PT, fall risk is relatively low - TSH WNL - cardiology consulted; confirmed a fib, follow up with Dr. Ross as an out patient - continue metoprolol 25mg PO BID and Eliquis - Sinus tachycardia well controlled - Continue to monitor on Telemetry (6) NSVT (nonsustained ventricular tachycardia): Stable episode of 8 beat V tach 06/23 - Echo here with preserved EF - restarted on Metoprolol 25 mg BID 06/23 without reoccurrence of V Tach - continue to monitor on tele (7) Fall: Appears to be back to her baseline at this time Suspected secondary to ongoing right knee effusion and UTI - Mild graze injury to right shoulder - No bone injury from fall - XR hip/pelvis, chest, shoulder, knee negative - CT head and cervical spine negative for acute findings - Right knee pain - continue prn Tylenol and ice (8) Elevated troponin: stable; trended downward on admission Suspect secondary to demand ischemia due to current infection - No chest pain or shortness of breath to suggest ACS - ECG without ischemic changes - TTE showed EF 60-65%, borderline LVH (9) Anemia: Appears chronic; B12 deficiency and Iron deficiency anemia - Hgb 10.5, appears to be consistently low at baseline - history of lung cancer - appears hypochromic microcytic - Iron panel shows anemia of chronic disease, ferritin WNL but transferrin sat mildly low at 10% - started on PO iron supplement - Colace and Miralax prn with start of iron - B12 low - 1000 mg IM 06/23, will continue on 1000 mg PO daily - folate WNL, TSH normal Plan Chronic Stable Diagnoses: DM - Low HbA1C 5.8 in January, Controlled on metformin at home (but on hold here) therefore no need to cover with insulin, BSG ACHS, or diabetic diet Primary Cancer of [facility] - Follows with oncology and pulmonary; non-small cell carcinoma, consistent with adenocarcinoma, of left upper lobe - treated with radiation - Suspicious area of right lower lobe, appointment 07/18 with pulm to discuss possible bronchoscopy Admission HPI Per Admitting Provider Nino Lowe is an 88 year old female who presents to the ER after being found on the floor after slipping out of bed this morning. She denies frequent falls. She denies any current injuries from the fall. She wasn't answering her phone therefore son went to see her and the lamp had been knocked over. She said she slipped out of bed onto her bottom but did not hit her head. She feels current at her baseline but was disorientated when found. She was noted to be in atrial fibrillation in the ER and reports never having this rhythm before. She denies any chest pain, shortness of breath, palpitations, presyncope or syncope. Discharge Exam The patient is awake, alert and oriented 3, well developed and well nourished, normocephalic and atraumatic, in no acute distress. Non-toxic appearing. HEENT- EOMI, mucous membranes dry. Hearing grossly intact. Heart-normal S1 and S2. No murmurs, rubs or gallops. Lungs-clear bilaterally, no respiratory distress, no accessory muscle use. Abdomen-normal bowel sounds and soft. No ascites noted. Non-tender. Extremities- no clubbing, cyanosis. Right knee with effusion, not erythematous or warm to touch. Psychiatric-normal affect. Discharge Plan Discharge Items Patient Disposition: Transfer Long Term Fac Reason For Visit: ATRIAL FIBRILLATION WITH RVR Discharge Diagnosis: a fib rvr Activity: Resume your previous activity Non-emergency contact: Primary Care Provider Call non-emergency contact if: you have any medication questions Follow-up/Referrals: Collin Ross MD [Physician] - (Follow up for new onset A fib ) Rodrick Muñoz III, CRNP [Primary Care Provider] - Diet: Regular Addtl Attending Provider Instructions: You were started on a iron supplement during your hospitalization, due to low iron levels. Iron supplement can sometimes cause constipation, so I recommend to take a stool softener if you start to have constipation with it. It also may cause dark colored stools. Pending Studies at Discharge: No Stand-Alone Forms: My [facility] Skilled Items Patient informed of condition?: Yes DNR: Yes Discharge Level of Care: Skilled Communicable Disease: No Discharge Prognosis: Stable Lines: None Urinary Catheter: No Medications and DC Order Prescriptions: New amoxicillin 875 mg Tablet 875 mg PO BID Qty: 2 0RF ferrous sulfate 325 mg (65 mg iron) Tablet,Delayed Release (Dr/Ec) 325 mg PO QAM Qty: 30 0RF Eliquis 2.5 mg Tablet 2.5 mg PO BID Qty: 60 0RF metoprolol succinate 50 mg tablet extended release 24 hr 50 mg PO PM Qty: 30 0RF Continued amlodipine 5 mg tablet 5 mg PO DAILY Qty: 90 3RF lisinopril 40 mg tablet 40 mg PO DAILY Qty: 90 3RF Calcium 600 with Vitamin D3 600 mg-10 mcg (400 unit) tablet,chewable 1 tab PO QAM (DME) lancets 30 gauge misc See Rx Instructions .ROUTE .MEDSUPPLY Qty: 100 1RF Rx Instructions: Use to check blood glucose one daily and PRN Ell.29 (DME) blood sugar diagnostic Strip See Dose Instructions .ROUTE .MEDSUPPLY Qty: 200 1RF Dose Instruction: As directed Rx Instructions: Use 1 strip daily (DME) blood-glucose meter [OneTouch Ultra2 Meter[place] [facility] [place]ructions .MEDSUPPLY Qty: 1 0RF Rx Instructions: Use to test blood glucose once daily (DME) blood-glucose meter [OneTouch Ultra2 Meter[place] [facility] [place] Rx Instructions .MEDSUPPLY Qty: 1 0RF Rx Instructions: Use to test blood glucose once daily multivitamin tablet 1 tab PO QPM aspirin 81 mg Tablet,Delayed Release (Dr/Ec) 81 mg PO QAM PreserVision AREDS-2 250-90-40-1 mg Capsule 1 tab PO BID metformin 500 mg tablet 500 mg PO BID Rx Instructions: TAKE 1 TABLET BY MOUTH TWICE A DAY Discharge Orders: Discharge Order (Routine); Ordered 06/30/24 Ordered By: Akhil Guerrero Admission Data Admit Date/Time: 06/21/24 14:33 Attending Provider: Akhil Guerrero Admit Provider: Ricki Arenas Primary Care Provider: Rodrick Muñoz III Other Providers: Ricki Arenas; Collin Ross; [place] [place]; Ebony Hernandez [place] Other Interventions: *Hourly Rounding Last Done: 06/30/24 15:00 Discharge Summary Assessment (RN) Last Done: 06/30/24 11:33 Hospital Stay Data Consultations 06/21/24 14:16 ED Decision to Admit Stat 06/24/24 09:18 Consult Cardiology Routine Diagnostic Imagining Performed 06/21/24 11:23 CT cervical spine wo con Stat CT head/brain wo con Stat Pending Results Patient Have Any Pending Studies at Discharge: No Discharge Instructions Given to Patient (Per Discharging Provider) You were started on a iron supplement during your hospitalization, due to low iron levels. Iron supplement can sometimes cause constipation, so I recommend to take a stool softener if you start to have constipation with it. It also may cause dark colored stools. Total Time Total Time Spent Total Time Spent (In Minutes): 32 Coding Level of Care Code 86940 INP/OBS DISCH >30 MIN Diagnoses Urinary tract infection N39.0 Acute kidney injury N17.9 Hyponatremia E87.1 Benign essential hypertension I10 PAF (paroxysmal atrial fibrillation) I48.0 NSVT (nonsustained ventricular tachycardia) I47.29 Fall W19.XXXA Elevated troponin R79.89 Anemia D64.9
== END 2024-06-30 16:18 | DRG 872 ==
LOC: ED 09:55 → SUATTDRO 14:33 → 2N 14:33 → 2W 06-24 00:22
DX: M85.80 Other specified disorders of bone density and structure, unspecified site; I24.89 Other forms of acute ischemic heart disease; C34.12 Malignant neoplasm of upper lobe, left bronchus or lung; N17.9 Acute kidney failure, unspecified; Z79.84 Long term (current) use of oral hypoglycemic drugs; Z87.891 Personal history of nicotine dependence; E11.69 Type 2 diabetes mellitus with other specified complication; Y92.019 Unspecified place in single-family (private) house as the place of occurrence of the external cause; A41.81 Sepsis due to Enterococcus; E87.1 Hypo-osmolality and hyponatremia; I12.9 Hypertensive chronic kidney disease with stage 1 through stage 4 chronic kidney disease, or unspecified chronic kidney disease; R80.9 Proteinuria, unspecified; C18.9 Malignant neoplasm of colon, unspecified; M17.11 Unilateral primary osteoarthritis, right knee; D64.9 Anemia, unspecified; E53.8 Deficiency of other specified B group vitamins; N18.9 Chronic kidney disease, unspecified; I48.0 Paroxysmal atrial fibrillation; N39.0 Urinary tract infection, site not specified; M25.461 Effusion, right knee; Y92.013 Bedroom of single-family (private) house as the place of occurrence of the external cause; Z79.82 Long term (current) use of aspirin; E11.22 Type 2 diabetes mellitus with diabetic chronic kidney disease; I47.29 Other ventricular tachycardia